=== PATIENT | female | born 1975 | race Caucasian/White ===

== ENCOUNTER 2024-05-21 23:49 | Emergency (ER) | payer OTHER, SELFPAY ==
[2024-05-21 23:55] VITALS: BP 135/96; PULSE 114; RESP 16; TEMP 36.6; O2SAT 94; BMI 41.1
[2024-05-22] VITALS (32 sets, daily range): BP systolic 106–135; BP diastolic 70–87; PULSE 82–109; RESP 12–21; O2SAT 93–100
--- NOTE | 2024-05-22 00:13 | ED_ITS ---
HPI - General Adult General Chief complaint: Extremity Pain/Injury, Lower Stated complaint: ankle injury from fall Time Seen by Provider: 05/21/24 23:58 History of Present Illness HPI narrative: fell and twisted ankle down 1 step approx 1 hour ago. felt a pop . L ankle deformed. states last PO 2 hours ago, patient reports she has been drinking alcohol. 48-year-old woman presenting to the emergency department accompanied by family after injuring her right ankle. She has been drinking alcohol. Do review last oral intake. At 12:45 a.m. is reporting last intake of solid food at least 6 hours before that and last intake of liquid about 845 p.m. this did include alcohol. No head injury was noted. There is no loss of consciousness. No other injuries were noted other than this left ankle. Related Data Home Medications ?Medication ?Instructions ?Recorded ?Confirmed bupropion HCl 150 mg 24 hr tablet, 150 mg PO DAILY 05/22/24 05/27/24 extended release chlorthalidone 25 mg tablet 25 mg PO DAILY 05/22/24 05/27/24 lisinopril 10 mg tablet 10 mg PO DAILY 05/22/24 05/27/24 sertraline 50 mg tablet 50 mg PO DAILY 05/22/24 05/27/24 Previous Rx's ?Medication ?Instructions ?Recorded oxycodone 5 mg tablet 5 mg PO Q6H PRN pain #12 tabs 05/22/24 Allergies Allergy/AdvReac Type Severity Reaction Status Date / Time Penicillins Allergy Verified 05/27/24 09:55 Sulfa (Sulfonamide Allergy Verified 05/27/24 09:55 Antibiotics) bees Allergy Uncoded 05/27/24 09:55 Review of Systems Status of ROS: Reports: 6 or more systems reviewed and unremarkable except as noted in History and below [facility] Social History Smoking Status: Former smoker What tobacco products do you use: cigarettes Smoking packs per day: 0.25 Smoking cigarettes per day: 5.0 Years smoked: 4 Smoking pack-years: 1.00 Smoking quit date/years: <= 15 years ago Do you use any of these nicotine containing products: None How often do you have a drink containing alcohol: 2-3 times a week How many standard drinks containing alcohol do you have on a typical day: 5 or 6 How often do you have six or more drinks on one occasion: Less than monthly AUDIT-C Alcohol total score: 6 Non-prescribed substance use: denies use service: No Exam Narrative: Exam Narrative: Flushed. Pleasant. Intoxicated. Breathing easily and easily conversant. The medial aspect of the right ankle with erythema/darkening and tenting of the skin. There is deviation generally of the ankle laterally. Heart is tachycardic in a regular rhythm. Const: Vital Signs, click to edit/add: Vital Signs - 24 hr 05/21/24 23:55 Temperature 98 F Pulse Rate [Pulse Oximeter] 114 H Respiratory Rate 16 Blood Pressure [Ri ght Upper Arm] 135/96 H Pulse Oximetry 94 Oxygen Delivery Me thod Room Air Documenting provider has reviewed patient's vital signs: yes Course Vital Signs Vital signs: Initial Vital Signs Temperature 98 F 05/21/24 23:55 Temperature Source Temporal Artery Scan 05/21/24 23:55 Pulse Rate 114 H 05/21/24 23:55 Respiratory Rate 16 05/21/24 23:55 Blood Pressure 135/96 H 05/21/24 23:55 Blood Pressure Mean 109 H 05/21/24 23:55 Blood Pressure Position Supine 05/21/24 23:55 Pulse Oximetry 94 05/21/24 23:55 Oxygen Delivery Method Room Air 05/21/24 23:55 Vital Signs Temperature 98 F 05/21/24 23:55 Pulse Rate 114 H 05/21/24 23:55 Respiratory Rate 16 05/21/24 23:55 Blood Pressure 135/96 H 05/21/24 23:55 Pulse Oximetry 94 05/21/24 23:55 Oxygen Delivery Method Room Air 05/21/24 23:55 Temperature 98 F 05/21/24 23:55 Pulse Rate 98 05/22/24 05:15 Respiratory Rate 16 05/22/24 05:15 Blood Pressure 120/87 05/22/24 05:01 Pulse Oximetry 97 05/22/24 05:15 Oxygen Delivery Method Room Air 05/21/24 23:55 Medications Administered Medications: Discontinued Medications Generic Name Dose Route Start Last Admin Trade Name Freq PRN Reason Stop Dose Admin Fentanyl 75 mcg 05/22/24 04:32 05/22/24 04:44 Fentanyl 100 Mcg/2 Ml Inj IVP 05/22/24 04:33 75 mcg ONCE ONE Administration Hydromorphone HCl 1 mg 05/21/24 23:58 05/22/24 00:15 Hydromorphone 0.5 Mg/0.5 Ml Inj IVP 05/21/24 23:59 1 mg ONCE ONE Administration Sodium Chloride 1,000 mls @ 1,000 mls/hr 05/21/24 23:58 05/22/24 01:47 0.9 % Sodium Chloride 1000 Ml IV 05/22/24 00:57 Infused .Q1H ONE Infusion Ketamine HCl 25 mg 05/22/24 01:54 05/22/24 02:18 Ketamine Hcl 100 Mg/Ml Inj IVP 05/22/24 01:55 25 mg ONCE ONE Administration Ketamine HCl 25 mg 05/22/24 02:43 05/22/24 02:22 Ketamine Hcl 100 Mg/Ml Inj IVP 05/22/24 02:44 25 mg ONCE ONE Administration Ketamine HCl 25 mg 05/22/24 04:32 05/22/24 04:48 Ketamine 50 Mg/0.5 Ml 100 Mg/Ml Ml IVP 05/22/24 04:33 25 mg ONCE ONE Administration Ketamine HCl 25 mg 05/22/24 05:29 05/22/24 04:52 Ketamine Hcl 100 Mg/Ml Inj IVP 05/22/24 05:30 25 mg ONCE ONE Administration Midazolam HCl 2 mg 05/22/24 01:54 05/22/24 02:13 Midazolam Hcl 1 Mg/Ml Inj IVP 05/22/24 01:55 2 mg ONCE ONE Administration Medical Decision Making MDM Narrative Medical decision making narrative: I would suspect dislocation partially probable fracture. Will need to reduce this sooner than later partly for pain but also to avoid further compromise of the skin. Receiving mg of Dilaudid and normal saline. On reassessment this did seem to help her pain. I do review the ankle images which show a tib fib fracture dislocation. A requested anesthesia to consult. Concerns of timing of ingestion remain. Did also discuss with orthopedics. Will try to minimize anesthetic and sedation. Also of concern is an alcohol level of 0.30 I discussed my concern of degree of functioning at 0.30 and she admits that this is likely a problem. Ultimately settled on using Versed and ketamine with anesthesia assistance. This did result in some pain control and mild sedation but not enough relaxation I think. Did with staff assistance manage to partially relocate I think the ankle. Certainly less pressure and effect on the skin. Julius Yepez splint applied with extra padding medially. Postreduction film though does show minimal improvement of joint alignment. Discussed with orthopedics on-call and anticipating no weight-bearing that this might be acceptable with close follow-up after the weekend. When went to attempt to mobilize with crutches, lost balance somewhat placing weight on to this left leg and felt a pop felt like it dislocated fully again. Pain has increased. With removal of splint can see pressure again on the medial ankle skin and that what reduction was accomplished prior has shifted. I think needs to be reduced again. Anesthesia available but note that would not provide any more medication beyond what was already done. This is not much sedation so should not be affecting airway and I will do this then with staff assistance. Given again another dose of ketamine and fentanyl. Still compromised effort at reduction by a lack of relaxation. Did accomplish more improved reduction and certainly relieved skin pressure/compromise. Postreduction film reviewed by me does show improvement from prior reduction efforts as well perhaps another 50% improved. Considering my earlier conversation with orthopedics, would anticipate close outpatient follow-up. See patient discharge plan for further discussion Lab Data Lab results reviewed: Yes I reviewed the patient's lab results Labs: Lab Results 05/22/24 Range/Units 01:30 Sodium 130 L (135-149) mmol/L Potassium 3.3 L (3.6-5.1) mmol/L Chloride 91 L (96-114) mmol/L Carbon Dioxide 22 (20-32) mmol/L Anion Gap 17 H (7-15) mEq/L BUN 12 (5-24) mg/dL Creatinine 0.9 (0.5-1.5) mg/dL Estimated Creat Clear 63.92 Estimated GFR 79 ml/min Glucose 130 H (60-115) mg/dL Calcium 9.0 (8.4-10.6) mg/dL Ethyl Alcohol 0.30 H (0.01-0.03) % Discharge Plan Discharge Clinical Impression: Right fibular fracture, Alcohol intoxication Ankle dislocation Qualifiers: Encounter type: subsequent encounter Laterality: right Qualified Code(s): S93.04XD - Dislocation of right ankle joint, subsequent encounter Ankle fracture Qualifiers: Encounter type: subsequent encounter Fracture type: closed Laterality: right Patient Disposition: Home w/ Parent or Adult Condition: Improved Additional Instructions: I did speak with Ortho [facility]. They are happy to see you in follow-up in clinic. Call [phone] Thursday. If they do not hear from you by noon on Thursday I believe, they will reach out for you. Hopefully you 2 can connect. I understand that you may need to follow up elsewhere. Need to be seen in that case early this week. Typically I would anticipate this ORIF of the ankle (your surgery) would be done in about a week; once the swelling has gone down. Would not bear weight on this foot; use the crutches. Elevate for comfort. Ibuprofen. Acetaminophen. Naproxen. Prescriptions: No Action chlorthalidone 25 mg tablet 25 mg PO DAILY lisinopril 10 mg tablet 10 mg PO DAILY sertraline 50 mg tablet 50 mg PO DAILY bupropion HCl 150 mg tablet extended release 24 hr 150 mg PO DAILY oxycodone 5 mg tablet 5 mg PO Q6H PRN (Reason: pain) Qty: 12 0RF Follow Up/Referrals: Provider,Not a Local [Primary Care Provider] - Stand Alone Forms: [employer] Info Instructions
[2024-05-22] MEDS: 0.9 % SODIUM CHLORIDE 1000 ml 1,000 ML IV (00:15)
[2024-05-22] MEDS: HYDROmorphone 0.5 mg/0.5 ml inj 1 MG IVP (00:15)
--- OUTSIDE RECORDS SUMMARY | 2024-05-22 00:56 | XMS_ITS | Encounter Summary ---
Author Organization [facility] Address [address] [place] [id number] Care Team Providers Care Varsity Baseball Coach Name Role Phone Maricarmen Simms DO Primary Care Provider [phone] Reason for Visit * Reason Comments Medication Questions Entered automatical ly based on patient selection in Modify. Encounter Details Date Type Department Care Team ([facility] Contact Info) Description 05/05/2024 10:00 AM CDT E-Visit [address] [address] Maricarmen Simms DO [address] [place] [address] [id number] Chief Comp: Medication Questions Social History Tobacco Use Types Packs/Day Years Used Date Smoking Tobacco: Former Cigarettes Q uit: 01/05/2014 Passive Smoke Exposure: Past Smokeless Tobacco: Never Comments:social smoker Alcohol Use Standard Drinks/Week Comments Not Currently 0.8 (1 standard drink = 0.6 oz p ure alcohol) Social drinker,wine PHQ-2 Answer Date Recorded PHQ-2 Score 0 06/04/2023 Sex and Gender Information Value Date Recorded Sex Assigned at Not on file Gender Identity Not on file Sexual Orientation Not on file documented as of this encounter Plan of Treatment Upcoming Encounters Date Type Department Care Team ([facility] Contact Info) Description 05/26/2024 8:00 AM CDT Telemedicine [address] [address] Maricarmen Simms DO [address] [place] [address] 09/26/2024 3:00 PM PROFESSOR OF LANGUAGES Telemedicine [facility] [address] [facility] [address] [place], [place] [id number] Sheela Vazquez PA-C [address] [place], [place] [phone] documented as of this encounter Visit Diagnoses Not on filedocumented in this encounter Care Teams Varsity Baseball Coach Relationship Specialty Start Date End Date Maricarmen Simms DO [address] [place] [address] PCP - General Family Practice 06/04/23 documented as of this encounter
--- OUTSIDE RECORDS SUMMARY | 2024-05-22 00:56 | XMS_ITS | Encounter Summary ---
Author Organization [facility] Address [address] [place] [address] Care Team Providers Care Automobile Locator Name Role Phone Maricarmen Simms DO Primary Care Provider [phone] Encounter Details Date Type Department Care Team (Late Contact Info) Description 05/05/2024 2:50 PM CDT Lab Visit [facility] [address] [place] [address] Health examination in population survey (Primary Dx); Pre-diabetes; Encounter for long-term (current) use of medications; Essential hypertension (HRC); Screening cholesterol level; Abnormal uterine bleeding (AUB) Social History Tobacco Use Types Packs/Day Years [...] Upcoming Encounters Date Type Department Care Team (Late Contact Info) Description 05/26/2024 8:00 AM CDT Telemedicine [facility] [address] [place] [address] Maricarmen Simms DO [address] [place] [address] 09/26/2024 3:00 PM DIRECTOR HEALTH Telemedicine [facility] [address] [facility] [address] [place], [place] [phone] Sheela Vazquez PA-C [address] [place] [address] documented as of this encounter Procedures Procedure Name Priority Date/Time Associated Diagnosis Comments CONTAINER TEST Routine 05/05/2024 2:04 PM CDT Health examination in population survey FIT COLLECTION KIT PREP Routine 05/05/2024 2:04 PM CDT Health examination in population survey LDL CHOLESTEROL, DIRECT MEASURED Routine 05/05/2024 2:04 PM CDT Screening cholesterol level CREATININE / GFR Routine 05/05/2024 2:04 PM CDT Encounter for long-term (current) use of medications Essential hypertension (HRC) TSH, SENSITIVE Routine 05/05/2024 2:04 PM CDT Abnormal uterine bleeding (AUB) ELECTROLYTE PANEL Routine 05/05/2024 2:0 4 PM CDT Essential hypertension (HRC) CHOLESTEROL, TOTAL AND HDL Routine 05/05/2024 2:04 PM CDT Screening cholesterol level HGB A1C Routine 05/05/2024 2:04 PM CDT Pre-diabetes documented in this encounter Results * FIT Collection Kit Prep (05/05/2024 2:04 PM CDT) [facility] FIT Kit Prep Fit Kit Given 05/05/2024 4:00 PM CDT [facility] Stool Non-blood Collection / Unknown 05/05/2024 2:04 PM CDT 05/05/2024 2:04 PM CDT Maricarmen Simms DO LAB_1 Performing Organization Address City/[facility]/ZIP Co de Phone Number [facility] [address] [place] [address], [place] * TSH (05/05/2024 2:04 PM CDT) TSH, Sensitive 2.26 0.30 - 4.50 uIU/mL 05/05/2024 6:53 PM CDT [facility] Blood Venipuncture / Unknown 05/05/2024 2:04 PM CDT 05/05/2024 2:04 PM CDT Maricarmen Simms DO LAB_1 Performing Organization Address [facility] Co de Phone Number [facility] [address] * (ABNORMAL) Cholesterol, Total and HDL (05/05/2024 2:04 PM CDT) Cholesterol 299(H) 0 - 199 mg/dL 05/05/2024 6:37 PM CDT [facility] HDL Cholesterol 58 >=40 mg/dL 6:37 PM CDT [facility] Non HDL Chol, Calculated 241(H) <=159 mg/dL 05/05/2024 6:37 PM CDT [facility] Blood Venipuncture / Unknown 05/05/2024 2:04 PM CDT 05/05/2024 2:04 PM CDT Maricarmen Simms DO LAB_1 Performing Organization Address [facility] Co de Phone Number [facility] [address] * (ABNORMAL) LDL Cholesterol, Direct Measured (05/05/2024 2:04 PM CDT) LDL, Direct 237(H) <=130 mg/dL 05/05/2024 6:52 PM CDT [facility] Blood Venipuncture / Unknown 05/05/2024 2:04 PM CDT 05/05/2024 2:04 PM CDT Maricarmen Simms DO LAB_1 Performing Organization Address [facility] de Phone Number [facility] [address] [place] [address] * (ABNORMAL) Electrolyte Panel (05/05/2024 2:04 PM CDT) Sodium 133(L) 136 - 145 mmol/L 05/05/2024 6:37 PM CDT [facility] Potassium 3.7 3.5 - 5.1 mmol/L 05/05/2024 6:37 PM CDT [facility] Chloride 99 98 - 109 mmol/L 05/05/2024 6:37 PM CDT [facility] CO2 20 20 - 29 mmol/L 05/05/2024 6:37 PM CDT [facility] Anion Gap 14 6 - 16 mmol/L 05/05/2024 6:37 PM CDT [facility] Blood Venipuncture / Unknown 05/05/2024 2:04 PM CDT 05/05/2024 2:04 PM CDT Maricarmen Simms DO LAB_1 Performing Organization Address [facility] Phone Number [facility] [address] [place] [address] * (ABNORMAL) Creatinine / GFR (05/05/2024 2:04 PM CDT) Creatinine 1.03(H) 0.55 - 1.02 mg/dL 05/05/2024 6:37 PM CDT [facility] GFR, Estimated >60 >60 mL/min/1.7 3m2 05/05/2024 6:37 PM CDT [facility] Blood Venipuncture / Unknown 05/05/2024 2:04 PM CDT 05/05/2024 2:04 PM CDT Maricarmencarol ann Simms DO LAB_1 Performing Organization Address City/[facility] Co de Phone Number [facility] [address] [place] [address], [facility] * (ABNORMAL) Hgb A1C (05/05/2024 2:04 PM CDT) Hemoglobin A1C 5.8(H) <=5.6 % 05/06/2024 9:[address] [facility] Estimated Average Glucose (Calc) 120 < 117 mg/dL 05/06/2024 9:[address] [facility] Comment:Estimated average gl ucose (eAG) converts A1c into glucose units (mg/dL) and estimates average glucose over the past approximately 3 months. The eAG reference interval (<117 mg/dL) corresponds to an A1c of <5.7%. Blood Venipuncture / Unknown 05/05/2024 2:04 PM CDT 05/05/2024 2:[address] [facility] - 05/06/2024 9:56 AM CDT For patients not previously diagnosed with diabetes: 5.7-6.4%: Increased risk for diabetes 6.5% and greater: Diagnostic for diabetes For patients diagnosed with diabetes: <8.0%: Goal of therapy for ages 18-75 Clinicians may recommend a higher or lower goal for specific individuals. Maricarmen Simms DO LAB_1 Performing Organization Address City/State/[facility] Co de Phone Number [facility] [address] [place] [address], [facility] documented in this encounter Visit Diagnoses Diagnosis Health examination in population survey- Primary Pre-diabetes Other abnormal glucose Encounter for long-term (current) use of medications Encounter for long-term (current) use of other medications Essential hypertension (HRC) Unspecified essential hypertension Screening cholesterol level Screening for lipoid disorders Abnormal uterine bleeding (AUB) documented in this encounter Care Teams Automobile Locator Relationship Specialty Start Date End Date Maricarmen Simms [place] [address] [place] [address] PCP - General Family Practice 06/04/23 documented as of this encounter
--- OUTSIDE RECORDS SUMMARY | 2024-05-22 00:56 | XMS_ITS | Clinical Summary ---
Author Organization [facility] hospital Address [address] [place] [address] Care Team Providers Care Milieu Technician Name Role Phone MendezMaricarmen DO Primary Care Provider + [phone] Source Comments You are receiving this document as you are listed as the primary care provider,follow-up provider, or the patient has been referred to you for consultation.This is in compliance with the Medicare and[facility] Cent[facility]aid EHR Incentive Program,which states Providers who transition their patient to another setting of careor provider of care or refers their patient to another provider of care shouldprovide summary care record for each transition of care or referral. [facility] Allergies Active Allergy Reactions Criticality Noted Date Comments Bee Venom Other, see comments 05/05/2024 Penicillins Rash 09/24/2010 Sulfa Antibiotics Rash 09/24/2010 Medications Medication Sig Dispensed Refills Start Date End Date Status naltrexone (REVIA) 50 MG tabletIndication s:Morbid obesity with BMI of 40.0-44.9, adult (HRC) Take 1 Tablet (50 mg) by mouth daily. 90 Tablet 1 09/22/19 24 Active buPROPion (WELLBUTRIN XL) 150 MG 24 hour release tabletIndication s:Morbid obesity with BMI of 40.0-44.9, adult (HRC) Take 1 Tablet (150 mg) by mouth daily. 90 Tablet 1 04/22/20 24 Active chlorthalidone (HYGROTON) 25 MG tabletIndication s:Essential hypertension (HRC) Take 1 Tablet (25 mg) by mouth daily. 90 Tablet 3 05/05/20 24 Active sertraline (ZOLOFT) 50 MG tabletIndication s:Anxiety (HRC) Take 1 Tablet (50 mg) by mouth daily. 90 Tablet 3 05/05/20 24 Active mometasone (ASMANEX HFA) 100 MCG/ACT inhalerIndicatio ns:Mild persistent asthma without complication (HRC) Inhale 2 Puffs two times a day. Rinse mouth/gargle after use. 39 g 3 05/05/20 24 025 Active lisinopril (ZESTRIL) 20 MG tabletIndication s:Essential hypertension (HRC) Take 1 Tablet (20 mg) by mouth daily. 90 Tablet 3 05/05/20 24 025 Active fexofenadine (JAYME) 180 MG tabletIndication s:Seasonal allergies Take 1 Tablet (180 mg) by mouth daily. 90 Tablet 3 05/05/20 24 Active fluticasone propionate (FLONASE) 50 MCG/ACT nasal solutionIndicati ons:Seasonal allergies Place 2 Sprays into both nostrils daily. 16 mL 3 05/05/20 24 Active ALBUterol sulfate HFA 108 (90 Base) MCG/ACT inhalerIndicatio ns:Mild persistent asthma without complication (HRC) Inhale 1-2 Puffs every 4 hours as needed for Wheezing. 18 g 2 05/05/20 24 Active EPINEPHrine (EPIPEN) 0.3 MG/0.3ML injectionIndicat ions:Bee sting allergy Inject 0.3 mL (0.3 mg) intramuscularly as needed. May repeat. 2 Each 11 05/05/20 24 Active fluticasone propionate (FLONASE) 50 MCG/ACT nasal solution 2 SPRAYS INTO BOTH NOSTRILS DAILY. DECREASE TO 1 SPRAY PER NOSTRIL DAILY IF SYMPTOMS CONTROLLED 16 mL 1 05/22/20 22 024 Discontinued(*M ed change OR same med OR reorder, new dose/directions ) sertraline (ZOLOFT) 50 MG tabletIndication s:Anxiety (HRC) Take 1/2 tablet daily by mouth for 1 week then increase to 1 tablet daily 30 Tablet 1 06/04/20 23 024 Discontinued(*M ed change OR same med OR reorder, new dose/directions ) lisinopril (ZESTRIL) 20 MG tabletIndication s:Essential hypertension (HRC) Take 1 Tablet (20 mg) by mouth daily. 90 Tablet 3 07/29/20 23 024 Discontinued(*M ed change OR same med OR reorder, new dose/directions ) sertraline (ZOLOFT) 50 MG tabletIndication s:Anxiety (HRC) Take 1 Tablet (50 mg) by mouth daily. 90 Tablet 3 07/30/20 23 024 Discontinued predniSONE (DELTASONE) 20 MG tabletIndication s:Mild persistent asthma with acute exacerbation (HRC) 2 tabs po q morning x 5 days 10 Tablet 10/09/19 24 024 Discontinued chlorthalidone (HYGROTON) 25 MG tabletIndication s:Essential hypertension (HRC) take 1 tablet by mouth every day 90 Tablet 02/02/20 24 024 Discontinued mometasone (ASMANEX HFA) 100 MCG/ACT inhalerIndicatio ns:SOB (shortness of breath) Inhale 2 Puffs two times a day. Rinse mouth/gargle after use. 39 g 03/01/20 24 024 Discontinued(*M ed change OR same med OR reorder, new dose/directions ) fexofenadine (JAYME) 180 MG tabletIndication s:Seasonal allergies take 1 tablet by mouth every day 90 Tablet 03/20/20 24 024 Discontinued(*M ed change OR same med OR reorder, new dose/directions ) chlorthalidone (HYGROTON) 25 MG tabletIndication s:Essential hypertension (HRC) take 1 tablet by mouth every day 90 Tablet 05/04/20 24 024 Discontinued(*M ed change OR same med OR reorder, new dose/directions ) Active Problems Problem Noted Date Diagnosed Date Mixed hyperlipidemia 05/11/2024 Seasonal allergies 05/05/2024 Mild persistent asthma without complication 04/17 Bee sting allergy 05/05/2024 SOB (shortness of breath) 06/04/2023 Fatty liver 02/04/2023 Elevated serum creatinine 12/08/2017 Essential hypertension 11/14/2016 Anxiety 04/28/2012 Resolved Problems Problem Noted Date Diagnosed Date Resolved Date Moderate persistent asthma w ith acute exacerbation 11/14/2016 03/12/2017 Localized superficial swelling, mass, or lump 09/08/05 1209/01/2017 Overview (04/28/2012): R lateral thigh Encounters Date Type Department Care Team Description 05/05/2024 2:50 PM CDT Lab Visit [address] [place] [address] Health examination in population survey (Primary Dx); Pre-diabetes; Encounter for long-term (current) use of medications; Essential hypertension (HRC); Screening cholesterol level; Abnormal uterine bleeding (AUB) 05/05/2024 1:30 PM CDT Office Visit [facility] [address] [place] [address] Maricarmen Simms DO Essential hypertension (HRC) (Primary Dx); Screening for colon cancer; Encounter for screening mammogram for malignant neoplasm of breast; Pre-diabetes; Encounter for long-term (current) use of medications; Morbid obesity with BMI of 40.0-44.9, adult (HRC); Anxiety (HRC); Seasonal allergies; Screening cholesterol level; Mild persistent asthma without complication (HRC); Abnormal uterine bleeding (AUB); Bee sting allergy 05/05/2024 10:00 AM CDT E-Visit [facility] [address] [place] [address] Maricarmen Simms DO Chief Comp: Medication Questions 05/01/2024 Refill [facility] [address] [place] [address] Maricarmen Simms DO Refill (chlorthalidone (HYGROTON) 25 MG tablet [Pharmacy Med Name: CHLORTHALIDONE 25 MG TABLET]) 04/22/2024 1:45 PM CDT E-Visit [facility] [place] [address] [place] [address] Sheela Vazquez PA-C Chief Comp: Medication Questions 04/22/2024 Refill [facility] [place] [address] [place] [address] Sheela Vazquez PA-C Refill (bupropion) 04/18/2024 Refill [facility] [place] [address] [facility] [address] [place] [address] Sheela Vazquez PA-C Refill (Wellbutrin ) 03/20/2024 Refill [facility] [address] [place] [address] Maricarmen Simms DO Refill (fexofenadine (JAYME) 180 MG tablet [Pharmacy Med Name: FEXOFENADINE HCL 180 MG TABLET]) 03/01/2024 12:40 PM CDT E-Visit [facility] [address] [place] [address] Maricarmen Simms DO Dx: SOB (shortness of breath) from Last 3 Months Immunizations Name Administration Dates Next Due Flu Vac (3+ yrs) 09/24/2010 HepA Adult (19+ yrs) 06/05/2020 HepA-HepB ([place], 18+ yrs) 04/01/2016,01/12/20 13 Influenza IIV4 (Quadrivalent) 0.5mL (82597) 05/17,05/21/2021,06/05/2020 Moderna Monovalent 12+ 06/14/2021,10/12/2020, Pfizer Bivalent 12+ 06/03/2022 Tdap 05/21/2021,09/24/2010 Family History Medical History Relation Name Comments Hyperlipidemia Father Hypertension Father Tachycardia Father Cancer, Melanoma Mother Hyperlipidemia Mother Hypertension Mother High Cholesterol Brother Hyperlipidemia Brother Hypertension Brother Myocardial Infarction Maternal Aunt Coronary Artery Disease Maternal Grandfather Hypertension Maternal Grandmother Asthma Paternal Grandfather Myocardial Infarction Paternal Grandfather Cancer, Lung Paternal Grandmother ADHD Negative Family History Alcohol/Drug Abuse Negative Family History Amblyopia/Strabismus Negative Family History Anesthesia Reaction Negative Family History Anxiety Negative Family History Bipolar Disorder Negative Family History Bleeding Disorder Negative Family History Blindness Negative Family History COPD Negative Family History Cancer, Bone Negative Family History Cancer, Colon Negative Family History Cancer, Other Negative Family History Cancer, Prostate Negative Family History Cataract Negative Family History Celiac Disease Negative Family History Cerebrovascular Disease Negative Family History Cystic Fibrosis Negative Family History Deafness Negative Family History Dementia Negative Family History Depression Negative Family History Diabetes, Type II Negative Family History Domestic Violence Negative Family History Eczema Negative Family History Emphysema Negative Family History Enuresis Negative Family History Genetic Disorder Negative Family History Glaucoma Negative Family History Inflammatory Bowel Disease Negative Family History Kidney Disorder Negative Family History Liver Disease Negative Family History Macular Degeneration Negative Family History Migraines Negative Family History Neural Tube Defect Negative Family History Obesity Negative Family History Osteoporosis Negative Family History Other Negative Family History Retinal Detachment Negative Family History Schizophrenia Negative Family History Scoliosis Negative Family History Seizure Disorder Negative Family History Sickle Cell Anemia Negative Family History Suicide Negative Family History Thromboembolic Disease Negative Family History Thyroid Disorder Negative Family History Tuberculosis Negative Family History Vesicoureteral Reflux Negative Family History Relation Name Status Comments Father Alive Mother Alive Brother Alive Maternal Aunt Maternal Grandfather Maternal Grandmother Paternal Grandfather Paternal Grandmother Sister 1 Alive Sister 2 Alive Social History Tobacco Use Types Packs/Day Years Used Date Smoking Tobacco: Former Cigarettes Q uit: 01/05/2014 Passive Smoke Exposure: Past Smokeless Tobacco: Never Tobacco Cessation:Counseling Given: Not Answered Comments:social smoker Alcohol Use Standard Drinks/Week Comments Not Currently 0.8 (1 standard drink = 0.6 oz p ure alcohol) Social drinker,wine PHQ-2 Answer Date Recorded PHQ-2 Score 0 06/04/2023 Sex and Gender Information Value Date Recorded Sex Assigned at Not on file Gender Identity Not on file Sexual Orientation Not on file Last Filed Vital Signs Vital Sign Reading Time Taken Comments Blood Pressure 126/88 05/05/2024 1:24 PM CDT Pulse 99 05/05/2024 1:24 PM CDT Temperature 36.3 ??C (97.3 ??F) 10/09/2023 12:[address] Respiratory Rate 28 10/09/2023 12:35 PM RN TRAVEL Oxygen Saturation 97% 10/09/2023 12:35 PM RN TRAVEL Inhaled Oxygen Concentration - - Weight 103.9 kg (229 lb) 05/05/2024 1:24 PM CDT Height 160 cm (5' 3) 05/05/2024 1:24 PM CDT Body Mass Index 40.57 05/05/2024 1:24 PM CDT Plan of Treatment Upcoming Encounters Date Type Department Care Team (Late st Contact Info) Description 05/26/2024 8:00 AM CDT Telemedicine [facility] [address] [facility] [address] [place], [place] [address] Maricarmen Simms DO [address] [facility] [place] [address] 09/26/2024 3:00 PM RN TRAVEL Telemedicine [facility] [address] [facility] [address] [place], [place] [id number] Sheela Vazquez PA-C [address] [place] [address] Health Maintenance Due Date Last Done Comments MTM Targeted 1976 Pneumococcal (1 - PCV) 1982 HepB (3) 09/01/2016 04/01/2016, 01/11/2013 Asthma ACT 06/08/2019 06/08/2018, 04/17, 03/12/2017 FIT Colon Cancer Screening 2020 Mammogram 04/16/2022 04/16/2021 Adult Preventive Visit 06/03/2023 06/03/2022, 2012 COVID-19 Vaccine ( season) 2024 06/03/2022, 06/14/2021, 10/12/2020, Additional history exists Influenza (#1) 2024 06/03/2022, 12/2020, 06/05/2020, Additional history exists Prediabetes: HGBA1C 05/05/2025 05/05/2024, 06/03/2022, 04/16/2021, Additional history exists Cervical Cancer Screening 03/28/20262020, 01/03/2013, 01/03/2013 Zoster/Shingles (1 of 2) 2026 Cholesterol 05/05/2029 05/05/2024, 05/17, 04/16/2021, Additional history exists DTaP/Tdap/Td (3 - Tdap) 05/21/2031 05/21/2021, 09/24 HIV Screening (Preventive Services) Completed 06/05/2020 HepA Completed 06/05/2020, 03/17, 01/11/2013 Hep C Screening (Preventive Services) Completed 06/03/2022 Hib Aged Out No longer eligi ble based on patient's age to complete this topic IPV (Polio) Aged Out No longer eligi ble based on patient's age to complete this topic Infant RSV Aged Out No longer eligi ble based on patient's age to complete this topic MCV4 Aged Out No longer eligi ble based on patient's age to complete this topic Procedures Procedure Name Priority Date/Time Associated Diagnosis Comments FIT COLLECTION KIT PREP Routine 05/05/2024 2:04 PM CDT Health examination in population survey CONTAINER TEST Routine 05/05/2024 2:04 PM CDT Health examination in population survey TSH, SENSITIVE Routine 05/05/2024 2:04 PM CDT Abnormal uterine bleeding (AUB) CHOLESTEROL, TOTAL AND HDL Routine 05/05/2024 2:04 PM CDT Screening cholesterol level LDL CHOLESTEROL, DIRECT MEASURED Routine 05/05/2024 2:04 PM CDT Screening cholesterol level ELECTROLYTE PANEL Routine 05/05/2024 2:0 4 PM CDT Essential hypertension (HRC) CREATININE / GFR Routine 05/05/2024 2:04 PM CDT Encounter for long-term (current) use of medications Essential hypertension (HRC) HGB A1C Routine 05/05/2024 2:04 PM CDT Pre-diabetes HEPATITIS C ANTIBODY, WITH REFLEX Routine 06/03/2022 1:24 PM CDT Need for hepatitis C screening test MM MAMMOGRAM SCREENING BILAT W CAD Routine 04/16/2021 3:25 PM CDT PAP TEST Routine 03/28/2021 3:35 PM CDT Routine health maintenance Screening for malignant neoplasm of cervix HIV 1/2 AG/AB 4TH GEN Routine 06/05/2020 2:03 PM CDT Screening for HIV (human immunodeficiency virus) from Last 3 Months or Most Recently Relevant to Health Maintenance Results * FIT Collection Kit Prep (05/05/2024 2:04 PM CDT) FIT Kit Prep Fit Kit Given 05/05/2024 4:00 PM CDT [facility] Stool Non-blood Collection / Unknown 05/05/2024 2:04 PM CDT 05/05/2024 2:04 PM CDT Maricarmen Simms DO LAB_1 Performing Organization Address City/[facility]/ZIP Co de Phone Number [facility] [address] [place] [address], [place] * (ABNORMAL) LDL Cholesterol, Direct Measured (05/05/2024 2:04 PM CDT) Pathologist [facility] LDL, Direct 237(H) <=130 mg/dL 05/05/2024 6:52 PM CDT [facility] Blood Venipuncture / Unknown 05/05/2024 2:04 PM CDT 05/05/2024 2:04 PM CDT Maricarmen Simms DO LAB_1 [facility] [address] [place], [place] [id number] [place] [address] * (ABNORMAL) Creatinine / GFR (05/05/2024 2:04 PM CDT) Creatinine 1.03(H) 0.55 - 1.02 mg/dL 05/05/2024 6:37 PM CDT [facility] GFR, Estimated >60 >60 mL/min/1.7 3m2 05/05/2024 6:37 PM CDT [facility] Blood Venipuncture / Unknown 05/05/2024 2:04 PM CDT 05/05/2024 2:04 PM CDT Maricarmen Simms DO LAB_1 Performing Organization Address [facility] Co de Phone Number [facility] [address] * TSH (05/05/2024 2:04 PM CDT) TSH, Sensitive 2.26 0.30 - 4.50 uIU/mL 05/05/2024 6:53 PM CDT [facility] Blood Venipuncture / Unknown 05/05/2024 2:04 PM CDT 05/05/2024 2:04 PM CDT Maricarmen Simms DO LAB_1 Performing Organization Address [facility] Phone Number [facility] [address] * (ABNORMAL) Electrolyte Panel (05/05/2024 2:04 PM CDT) Sodium 133(L) 136 - 145 mmol/L 05/05/2024 6:37 PM CDT [facility] Potassium 3.7 3.5 - 5.1 mmol/L 05/05/2024 6:37 PM CDT [facility] Chloride 99 98 - 109 mmol/L 05/05/2024 6:37 PM CDT [facility] CO2 20 20 - 29 mmol/L 05/05/2024 6:37 PM CDT [facility] Anion Gap 14 6 - 16 mmol/L 05/05/2024 6:37 PM CDT [facility] Blood Venipuncture / Unknown 05/05/2024 2:04 PM CDT 05/05/2024 2:04 PM CDT Maricarmen Simms DO LAB_1 Performing Organization Address [facility] Co la Phone Number [facility] [address] [place] [address] * (ABNORMAL) Cholesterol, Total and HDL (05/05/2024 2:04 PM CDT) Cholesterol 299(H) 0 - 199 mg/dL 05/05/2024 6:37 PM CDT [facility] HDL Cholesterol 58 >=40 mg/dL 6:37 PM CDT [facility] Non HDL Chol, Calculated 241(H) <=159 mg/dL 05/05/2024 6:37 PM CDT [facility] Blood Venipuncture / Unknown 05/05/2024 2:04 PM CDT 05/05/2024 2:04 PM CDT Maricarmen Simms DO LAB_1 [facility] [address] * (ABNORMAL) Hgb A1C (05/05/2024 2:04 PM CDT) Hemoglobin A1C 5.8(H) <=5.6 % 05/06/2024 9:56 AM CDT [facility] Estimated Average Glucose (Calc) 120 < 117 mg/dL 05/06/2024 9:56 AM CDT [facility] Comment:Estimated average gl ucose (eAG) converts A1c into glucose units (mg/dL) and estimates average glucose over the past approximately 3 months. The eAG reference interval (<117 mg/dL) corresponds to an A1c of <5.7%. Blood Venipuncture / Unknown 05/05/2024 2:04 PM CDT 05/05/2024 2:04 PM CDT Narrative [facility] - 05/06/2024 9:56 AM CDT For patients not previously diagnosed with diabetes: 5.7-6.4%: Increased risk for diabetes 6.5% and greater: Diagnostic for diabetes For patients diagnosed with diabetes: <8.0%: Goal of therapy for ages 18-75 Clinicians may recommend a higher or lower goal for specific individuals. Maricarmen Simms DO LAB_1 [facility] [address] [place] [address] * Hepatitis C Antibody, with Reflex (06/03/2022 1:24 PM CDT) Hepatitis C Antibody Negative (Non Reactive) Negative (Non Reactive) 06/03/2022 6:38 PM CDT [facility] Comment:Antibodies to HCV no t detected. Does not exclude the possiblity of exposure to HCV. Blood Venipuncture / Unknown 06/03/2022 1:24 PM CDT 06/03/2022 1:24 PM CDT Lacey Payne MD LAB_1 Performing Organization Address [facility] Co de Phone Number [facility] [address] [place] [address] * (ABNORMAL) MM Mammogram Screening Bilat W CAD (04/16/2021 3:25 PM CDT) Anatomical Region Laterality Modality Breast Bilateral Mammography Impressions 04/16/2021 4:04 PM CDT : ACR BI-RADS Category 0: Need Additional Imaging Evaluation RECOMMENDATION: Magnification Views The results and recommendations of this examination will be communicated to the patient and the imaging center will attempt to schedule any recommended follow up with the patient. As a result of the Century Cures Act, all medical imaging exams are released immediately to [facility]. ??You may be viewing this report before our scheduling staff and your referring provider. ??We will attempt to contact you by phone within one business day of this report to schedule any recommended follow-up exams. ??If you have questions, please contact your health care provider. Narrative 04/16/2021 4:04 PM CDT MM MAMMOGRAM SCREENING BILAT W CAD performed on 04/16/21 No comparisons were made when reading this study. ??Baseline. FINDINGS: Bilateral screening mammogram was performed with the assistance of Computer-Aided Detection . The breasts have scattered areas of fibroglandular density. There are indeterminate calcifications in the right breast at the 11 o'clock position at anterior depth. The remainder of the breast tissue is unremarkable. Lacey Payne MD [facility] * PAP Test (03/28/2021 3:35 PM CDT) Case Report Pap ? Case: [id number] ? Authorizing Provider: ??Omar, Leticia Flores, MICRO COMPUTER DATA PROCESSOR, CNM ??Collected: ? 03/28/2021 1535 ? Ordering Location: ? [facility] ?Received: ?03/28/2021 1633 ? Gynecology ? First Screen: ?Benji, Tanisha R, CT ? (ASCP) ? Rescreen: ?Grace Carr CT (ASCP) ? Specimen: ?Pap Test, Routine, Cervix/Endocervix ? 04/10/2021 1:[address] [facility] Pap Specimen Adequacy Satisfactory for evaluation, endocervical/newman sformation zone component present. 04/10/2021 1:[address] [facility] Pap Interpretation Negative for intraepithelial lesion or malignancy (NILM). 04/10/2021 1:[address] [facility] Pap Disclaimer The Pap test is a screening test designed to aid in the detection of cervical cancer and its precursor lesions. It is not a diagnostic procedure and should not be used as the sole means of detecting cervical cancer. Both false-positive and false-negative results may occur. 04/10/2021 1:[address] [facility] Gross Description The specimen is received in SurePath fixative and properly labeled. 1 Pap-stained SurePath slide is prepared. 04/10/2021 1:[address] [facility] Embedded Images 1:[address] [facility] Other Specimen Type ENTIRE ENDOCERVIX / Unknown 03/28/2021 3:35 PM CDT 03/28/2021 4:33 PM CDT Comment:LMP: Patient's last menstrual period was 03/03/2021. Leticia Nelson APRN, CNM LAB PATHOLOGY Performing Organization Address City/State/[facility] Co de Phone Number [address] [address], [facility] [phone] * HIV 1/2 Ag/Ab 4th Generation (06/05/2020 2:03 PM CDT) HIV 1/2 Antigen/Anti body (4th generation) Negative (Non Reactive) Negative (Non Reactive) 06/06/2020 12:09 PM CDT [facility] Comment:HIV-1 p24 Antigen an d HIV-1/HIV-2 Antibody not detected Blood Venipuncture / Unknown 06/05/2020 2:03 PM CDT 06/05/2020 2:03 PM CDT Lacey Payne MD LAB_1 [facility] [address] [phone] from Last 3 Months or Most Recently Relevant to Health Maintenance Care Teams Milieu Technician Relationship Specialty Start Date End Date Maricarmen Simms DO [address] [place], [place] [address] PCP - General Family Practice 06/04/23
--- OUTSIDE RECORDS SUMMARY | 2024-05-22 00:57 | XMS_ITS | Encounter Summary ---
Author Organization [facility]ly [facility] Address [address] [place] [address] Care Team Providers Care Production Officer Name Role Phone Yvonne Harris DO Primary Care Provider [phone] Reason for Visit * Reason Comments Refill fexofenadine (ALLEGR A) 180 MG tablet [Pharmacy Med Name: FEXOFENADINE HCL 180 MG TABLET] Encounter Details Date Type Department Care Team ([facility] st Contact Info) Description 03/20/[address] [address] Yvonne Harris DO [address] [place], [place] [phone] Refill (fexofenadine (JAYME) 180 MG tablet [Pharmacy Med Name: FEXOFENADINE HCL 180 MG TABLET]) Social History Tobacco Use Types Packs/Day Years Used Date Smoking Tobacco: Former Cigarettes Q uit: 01/05/2014 Smokeless Tobacco: Never Comments:social smoker Alcohol Use Standard Drinks/Week Comments Not Currently 0.8 (1 standard drink = 0.6 oz p ure alcohol) Social drinker,wine PHQ-2 Answer Date Recorded PHQ-2 Score 0 06/04/2023 Sex and Gender Information Value Date Recorded Sex Assigned at Not on file Gender Identity Not on file Sexual Orientation Not on file documented as of this encounter Nursing Notes * Kevan Hammonds RN - 03/20/2024 8:12 PM CDT Further Assistance Needed on Refill from Recruiting Consultant Patient is due for Qualifying Visit Medication has been refilled for a 90-day supply. Patient is due for an Office/Video Visit in the next 90 days. Call Patient and document using .BREANNA. After attempting to schedule patient: Close encounter. Refill has already been processed per standing order. Requested Prescriptions Pending Prescriptions Disp Refills fexofenadine (JAYME) 180 MG tablet [Pharmacy Med Name: FEXOFENADINE HCL 180 MG TABLET] 90 Tablet 0 Sig: take 1 tablet by mouth every day * Marvin Maradiaga Xrwcomm - 03/20/2024 1:11 AM CDT fexofenadine (JAYME) 180 MG tablet [Pharmacy Med Name: FEXOFENADINE HCL 180 MG TABLET] Medication started: 06/03/2022 Last ordered by YVONNE HARRIS: 12/12/2023 (99 days ago) QTY: 90, Refills: 1, Sig: take 1 tabletby mouth every day (unchanged) -> Refill x 3 months (until due for an office visit) Last qualifying visit: 06/04/2023 (with YVONNE HARRIS) Next scheduled visit: None [facility] Embedded Refills, Reference: [id number], 03/20/2024 1:11:40 AM DELMIT, Sam: MAT Refill Centralized Services - Primary Care [[id number]] ([id number]) documented in this encounter Plan of Treatment Upcoming Encounters Date Type Department Care Team (Late st Contact Info) Description 05/26/2024 8:00 AM CDT Telemedicine [facility] [address] [place] [address] Yvonne Harris DO [address] [facility], [place] [id number] 09/26/2024 3:00 PM NET ARCHITECT Telemedicine [facility] [address] [facility] [address] [place], [place] [address] Sheela Vazquez PA-C [address] [place] [address] documented as of this encounter Visit Diagnoses Diagnosis Seasonal allergies Allergic rhinitis, cause unspecified documented in this encounter Care Teams Production Officer Relationship Specialty Start Date End Date Yvonne Harris DO [address] [facility], [place] [address] PCP - General Family Practice 06/04/23 documented as of this encounter
--- OUTSIDE RECORDS SUMMARY | 2024-05-22 00:57 | XMS_ITS | Encounter Summary ---
Author Organization [facility] Address [address] [place] [address] Care Team Providers Care Will Call Clerk Name Role Phone Yvonne Harris DO Primary Care Provider [phone] Reason for Visit * Reason Comments QUESTIONS, GENERAL Entered automaticall y based on patient selection in [employer]. Encounter Details Date Type Department Care Team ([facility] st Contact Info) Description 03/01/2024 12:40 PM CDT E-Visit [address] [id number] Yvonne Harris DO [address] [place] [phone] Dx: SOB (shortness of breath) Social History Tobacco Use Types Packs/Day Years [...] as of this encounter Nursing Notes * Maria A Trammell RN - 03/01/2024 12:47 PM CDT Renewed medication per medication refill standing order. Requested Prescriptions Signed Prescriptions Disp Refills mometasone (ASMANEX HFA) 100 MCG/ACT inhaler 39 g 0 Sig: Inhale 2 Puffs two times a day. Rinse mouth/gargle after use. Authorizing Provider: YVONNE HARRIS Ordering User: MARIA A TRAMMELL * Marvin Maradiaga Xrwcomm - 03/01/2024 12:41 PM CDT mometasone (ASMANEX HFA) 100 MCG/ACT inhaler Medication started: 02/04/2023 Last ordered by YVONNE HARRIS: 02/04/2023 (391 days ago) QTY: 1, Refills: 11, Sig: inhale 2 puffs two times a day. rinse mouth/gargle after use. (unchanged) -> The most recent order on 02/04/2024. -> Refill x 3 months (until due for an office visit) -> Calculate the quantity and number of refills manually. Last qualifying visit: 06/04/2023 (with YVONNE HARRIS) Next scheduled visit: None [facility] Embedded Refills, Reference: [id number], 03/01/2024 12:41:55 PM CDT, Pool: MAT Refill Centralized Services - Primary Care [[id number]] ([id number]) documented in this encounter Plan of Treatment Upcoming Encounters Date Type Department Care Team (Late st Contact Info) Description 05/26/2024 8:00 AM CDT Telemedicine [facility] [address] [facility], [place] [address] Yvonne Harris DO [address] [place], [place] [address] 09/26/2024 3:00 PM AIRPLANE TECHNICIAN Telemedicine [facility] [address] [facility] [address] [place], [place] [address] Sheela Vazquez PA-C [address] [place] [address] documented as of this encounter Visit Diagnoses Diagnosis SOB (shortness of breath) Shortness of breath documented in this encounter Care Teams Will Call Clerk Relationship Specialty Start Date End Date Yvonne Harris DO [address] [facility] [place] [address] PCP - General Family Practice 06/04/23 documented as of this encounter
--- OUTSIDE RECORDS SUMMARY | 2024-05-22 00:57 | XMS_ITS | Encounter Summary ---
Author Organization [facility] Address [address] [place] [address] Care Team Providers Care Tool And Production Planner Name Role Phone Yvonne Harris DO Primary Care Provider [phone] Reason for Visit * Reason Comments Refill chlorthalidone (HYGR OTON) 25 MG tablet [Pharmacy Med Name: CHLORTHALIDONE 25 MG TABLET] Encounter Details Date Type Department Care Team ([facility] st Contact Info) Description 05/01/[address] [phone] Yvonne Harris DO [address] [place], [place] [phone] Refill (chlorthalidone (HYGROTON) 25 MG tablet [Pharmacy Med Name: CHLORTHALIDONE 25 MG TABLET]) Social History Tobacco Use Types [...] as of this encounter Nursing Notes * Marcella Quiles RN - 05/02/2024 8:25 PM CDT Further Assistance Needed on Refill from Clinician RN reviewed. Patient due for Lab(s). > Cr, K, and Na are overdue (performed over 15 months ago, required every 12 months) -> Cr is abnormal (1.1 mg/dL lies outside 0.55 mg/dL - 1.02 mg/dL) -> Na is abnormal (134 mEq/L lies outside 135.0 mEq/L - 145.0 mEq/L) Last qualifying visit: 06/04/2023 (with YVONNE HARRIS) Next scheduled visit: 05/05/2024 (with YVONNE HARRIS) Review pended order for accuracy and sign if appropriate, Clinician to order lab(s) and document ifpatient is due for lab only visit or office visit and lab, and Route to [place] to schedule appointment Requested Prescriptions Pending Prescriptions Disp Refills chlorthalidone (HYGROTON) 25 MG tablet [Pharmacy Med Name: CHLORTHALIDONE 25 MG TABLET] 90 Tablet 0 Sig: take 1 tablet by mouth every day documented in this encounter Plan of Treatment Upcoming Encounters Date Type Department Care Team (Late st Contact Info) Description 05/26/2024 8:00 AM CDT Telemedicine [facility] [address] [place] [address] Yvonne Harris DO [address] [place], [place] [phone] 09/26/2024 3:00 PM WORSTED WINDER Telemedicine [facility] [address] [facility] [address] [place], [place] [address] Sheela Vazquez PA-C [address] [place], [place] [phone] documented as of this encounter Visit Diagnoses Diagnosis Essential hypertension (HRC) Unspecified essential hypertension documented in this encounter Care Teams Tool And Production Planner Relationship Specialty Start Date End Date Yvonne Harris DO [address] [place] [address] PCP - General Family Practice 06/04/23 documented as of this encounter
--- OUTSIDE RECORDS SUMMARY | 2024-05-22 00:57 | XMS_ITS | Encounter Summary ---
[facility] Address [address] [place] [address] Care Team Providers Care Customer Service Dispatcher Name Role Phone Maricarmen Reyes DO Primary Care Provider [phone] Reason for Referral * Procedure/Equipment (Routine) - Incomplete Specialty Diagnoses / Procedures Referred By Contac t Referred To Contact Diagnoses Encounter for screening mammogram for malignant neoplasm of breast Procedures MM Mammogram Screening Bilat W CAD Maricarmen Reyes DO [address] [place] [address] Referral ID Status Reason Start Date Expiration Date V isits Requested Visits Authorized [id number] Incomplete 05/05/2024 08/04/2025 1 1 Reason for Visit * Reason Comments ASTHMA Encounter Details Date Type Department Care Team (Late st Contact Info) Description 05/05/2024 1:30 PM CDT Office Visit [address] [address] Maricarmen Reyes DO [address] [place] [address] Essential hypertension (HRC) (Primary Dx); Screening for colon cancer; Encounter for screening mammogram for malignant neoplasm of breast; Pre-diabetes; Encounter for long-term (current) use of medications; Morbid obesity with BMI of 40.0-44.9, adult (HRC); Anxiety (HRC); Seasonal allergies; Screening cholesterol level; Mild persistent asthma without complication (HRC); Abnormal uterine bleeding (AUB); Bee sting allergy Social History Tobacco Use Types Packs/Day Years [...] on file documented as of this encounter Last Filed Vital Signs Vital Sign Reading Time Taken Comments Blood Pressure 126/88 05/05/2024 1:24 PM CDT Pulse 99 05/05/2024 1:24 PM CDT Temperature - - Respiratory Rate - - Oxygen Saturation - - Inhaled Oxygen Concentration - - Weight 103.9 kg (229 lb) 05/05/2024 1:24 PM CDT Height 160 cm (5' 3) 05/05/2024 1:24 PM CDT Body Mass Index 40.57 05/05/2024 1:24 PM CDT documented in this encounter Patient Instructions * Patient Instructions* Elinor Lagos LPN - 05/05/2024 1:30 PM CDT Healthy Weight Matters Understanding body mass index Your BMI is on your After Visit Summary under ???Today???s Visit.?? You can also find a BMI calculator on the National [place] [employer] website at www.nhlbi.nih.gov/health/educational/lose_wt/BMI/bmicalc.htm. BMI ranges for adults BMI BMI categories Below 18.5 Underweight 18.5 to 24.9 Normal weight 25.0 to 29.9 Overweight 30.0 and above Obese If you are overweight or have obesity, your risk increases for developing health problems, such as type 2 diabetes, heart disease, high blood pressure and stroke. Your BMI measurement alone cannot predict your health risk. But if you know your BMI is high, you can take steps to set healthy goals and improve your overall well-being. What can I do to improve my BMI? Losing weight is an important way to reduce your BMI and improve your overall health and well- being. Start small. Aim to lose a few pounds to begin rather than worry about your ideal weight. Here are some tips: + Be physically active. Do activities that you enjoy, give you energy and are safe for you to do.Gradually build up the intensity (how hard your body is working) of activity. Long-term, aim for 30 minutes or more of activity most days of the week. Remember to check with your doctor before starting any physical activity program. + Eat real (not processed) food. Eat mostly vegetables, fruit, whole grains and lean proteins. Thatway, you--not food manufacturers--control the ingredients that go into your meals. + Aim for 5 servings of fruits and vegetables a day. Choose a variety of vegetables with different colors. Have fresh fruit for dessert. Limit deep-fried vegetables, such as guamanian fries. + Choose lean protein, such as chicken or fish. Try non-meat sources of protein such as beans, soy and other legumes. + Choose whole grains. Whole grain foods, such as whole-wheat bread, brown rice, barley, quinoa andoatmeal, contain the entire grain kernel and are better for your health. Limit refined grains, suchas white bread and rice. + Satisfy hunger with unsaturated fat. Fat helps you feel satisfied. Choose unsaturated fats, such as canola or olive oils, nuts and seeds, oil-based dressings and avocados. Limit saturated fats, which are found in animal products and some plant oils, such as coconut and palm oils. + Pay attention to portion sizes. Use smaller plates, bowls and glasses. Portion out foods before you eat. + Drink water or unsweetened beverages. Avoid soda, sweetened coffees and teas, energy drinks and sports drinks, which are full of added sugar that your body does not need. Water is always the best option. + Eat mindfully. Take time to fully enjoy your food and pay attention to what you are eating. Make meals last 15 to 30 minutes. This gives your body a chance to become satisfied and tell your brain to stop eating. Pay attention to what you are eating, rather than doing other activities such as watching TV or driving. This helps you pay attention to your body???s signals of hunger and fullness. + Share meals when eating at restaurants, or put half of the entr??e in a to-go container before you start eating. Nutrition Services One-on-one visits with a registered dietitian are available at various clinic locations to help youdevelop a personalized plan for managing your weight. We also offer classes led by dietitians on a variety of topics. To schedule an appointment, find the clinic that works best for you. + For [facility], call [phone]. + For [facility] locations, call [phone]. + For [facility] and [facility], call [phone]. + For [facility] and [facility], call [phone]. + For [facility], call [phone]. (12/2018) [facility] documented in this encounter Progress Notes * Maricarmen Reyes DO - 05/05/2024 1:30 PM CDT SUBJECTIVE: Rima Riley is a 48 y.o. female here for follow up. Hypertension: blood pressure currently well controlled with chlorthalidone and lisinopril. No chestpain, palpitations or SOB. Anxiety: mood well controlled with sertraline 50mg daily. Also taking wellbutrin prescribed by bariatric clinic to help with weight loss, feels this is working well for her. Would like to stay on current dose of sertraline at this time. Had been prescribed naltrexone, did not like how it made her feel and has stopped taking. Asthma: Has been using mometasone inhaler with benefit, typically using once daily, occasionally will use albuterol inhaler, tends to require with respiratory infections. No current wheezing, cough or shortness breath. Notes menses have changed in duration, continues to have monthly menses, some months are shorter, other months longer. No menorrhagia. Has also been noticing flashes, wonders if she is going through menopause. Her sister went through menopause at age 48. Past medical, family, and social history reviewed and updated. Current medications reviewed and updated. buPROPion (WELLBUTRIN XL) 150 MG 24 hour release tablet, Take 1 Tablet (150 mg) by mouth daily., Disp: 90 Tablet, Rfl: 1 chlorthalidone (HYGROTON) 25 MG tablet, Take 1 Tablet (25 mg) by mouth daily., Disp: 90 Tablet, Rfl: 3 lisinopril (ZESTRIL) 20 MG tablet, Take 1 Tablet (20 mg) by mouth daily., Disp: 90 Tablet, Rfl: 3 mometasone (ASMANEX HFA) 100 MCG/ACT inhaler, Inhale 2 Puffs two times a day. Rinse mouth/gargle after use., Disp: 39 g, Rfl: 3 naltrexone (REVIA) 50 MG tablet, Take 1 Tablet (50 mg) by mouth daily., Disp: 90 Tablet, Rfl: 1 sertraline (ZOLOFT) 50 MG tablet, Take 1 Tablet (50 mg) by mouth daily., Disp: 90 Tablet, Rfl: 3 No current facility-administered medications on file as of 05/05/2024. OBJECTIVE: BP 126/88 (BP Location: Left Arm, BP Cuff Size: Large) Pulse 99 Ht 5' 3 (1.6 m) Wt 229 lb (103.9 kg) LMP 04/23/2024 (Approximate) BMI 40.57 kg/m?? Vitals reviewed General: Well developed, well nourished, in no acute distress Head: atraumatic, normocephalic Eyes: EOMI, PERRL Heart: normal S1 and S2, regular rhythm, no murmur Lungs: CTA bilaterally, no wheeze, no crackle Skin: warm and well perfused, no rashes noted Neuro: gait is normal Psyche: normal affect ASSESSMENT/PLAN: Rima was seen today for asthma. Diagnoses and all orders for this visit: Essential hypertension (HRC) - Creatinine / GFR; Future - chlorthalidone (HYGROTON) 25 MG tablet; Take 1 Tablet (25 mg) by mouth daily. - lisinopril (ZESTRIL) 20 MG tablet; Take 1 Tablet (20 mg) by mouth daily. - Electrolyte Panel; Future Screening for colon cancer - FIT, OCCULT BLOOD, STOOL; Future Encounter for screening mammogram for malignant neoplasm of breast - MM Mammogram Screening Bilat W CAD; Future Pre-diabetes - Hgb A1C; Future Encounter for long-term (current) use of medications - Creatinine / GFR; Future Morbid obesity with BMI of 40.0-44.9, adult (HRC) Anxiety (HRC) - sertraline (ZOLOFT) 50 MG tablet; Take 1 Tablet (50 mg) by mouth daily. Seasonal allergies - fexofenadine (JAYME) 180 MG tablet; Take 1 Tablet (180 mg) by mouth daily. - fluticasone propionate (FLONASE) 50 MCG/ACT nasal solution; Place 2 Sprays into both nostrils daily. Screening cholesterol level - LDL Cholesterol, Direct Measured; Future - Cholesterol, Total and HDL; Future Mild persistent asthma without complication (HRC) - mometasone (ASMANEX HFA) 100 MCG/ACT inhaler; Inhale 2 Puffs two times a day. Rinse mouth/gargle after use. - ALBUterol sulfate HFA 108 (90 Base) MCG/ACT inhaler; Inhale 1-2 Puffs every 4 hours as needed forWheezing. Abnormal uterine bleeding (AUB) - TSH; Future Bee sting allergy - EPINEPHrine (EPIPEN) 0.3 MG/0.3ML injection; Inject 0.3 mL (0.3 mg) intramuscularly as needed. May repeat. Reviewed asthma management with patient, recommend continued use of controller inhaler with twice daily use. Patient has not had formal asthma testing however has noticed significant improvement in breathing with inhaler use, could consider formal PFTs in future. Blood pressure well controlled today, refills provided. Will check monitoring lab work as ordered above. Suspect patient's irregular menses related to perimenopause, will check TSH. Follow-up as needed. Options for treatment and follow-up care were reviewed with the patient and/or guardian. Rima Riley and/or guardian engaged in the decision making process and verbalized understanding of the options discussed and agreed with the final plan. Maricarmen Reyes DO documented in this encounter Plan of Treatment Upcoming Encounters Date Type Department Care Team (Late st Contact Info) Description 05/26/2024 8:00 AM CDT Telemedicine [address] [address] Maricarmen Reyes DO [address] [facility], [place] [id number] 09/26/2024 3:00 PM BIOSOLIDS MANAGEMENT TECHNICIAN Telemedicine [facility] [address] [facility] [address] [place], [place] [address] Sheela Vazquez PA-C [address] [place], [place] [phone] Scheduled Orders Name Type Priority Associated Diagnoses Orde r Schedule FIT, OCCULT BLOOD, STOOL Lab Routine Screening for colon cancer Expected: 05/05/2024, Expires: 05/05/2025 MM Mammogram Screening Bilat W CAD Imaging New Routine Encounter for screening mammogram for malignant neoplasm of breast Expected: 05/05/2024 (Approximate), Expires: 05/05/2025 documented as of this encounter Results * TSH (05/05/2024 2:04 PM CDT) TSH, Sensitive 2.26 0.30 - 4.50 uIU/mL 05/05/2024 6:53 PM CDT [facility] Blood Venipuncture / Unknown 05/05/2024 2:04 PM CDT 05/05/2024 2:04 PM CDT Maricarmen Reyes DO LAB_1 [facility] [address] [place], [place] [id number] [place] [address] * (ABNORMAL) Cholesterol, Total and HDL (05/05/2024 2:04 PM CDT) Cholesterol 299(H) 0 - 199 mg/dL 05/05/2024 6:37 PM CDT [facility] HDL Cholesterol 58 >=40 mg/dL 6:37 PM CDT [facility] Non HDL Chol, Calculated 241(H) <=159 mg/dL 05/05/2024 6:37 PM CDT [facility] Blood Venipuncture / Unknown 05/05/2024 2:04 PM CDT 05/05/2024 2:04 PM CDT Maricarmen Reyes DO LAB_1 Performing Organization Address [facility] Co de Phone Number [facility] [address] * (ABNORMAL) LDL Cholesterol, Direct Measured (05/05/2024 2:04 PM CDT) LDL, Direct 237(H) <=130 mg/dL 05/05/2024 6:52 PM CDT [facility] Blood Venipuncture / Unknown 05/05/2024 2:04 PM CDT 05/05/2024 2:04 PM CDT Maricarmen Reyes DO LAB_1 Performing Organization Address [facility] Phone Number [facility] [address] * (ABNORMAL) Electrolyte Panel (05/05/2024 2:04 PM CDT) Sodium 133(L) 136 - 145 mmol/L 05/05/2024 6:37 PM CDT [facility] Potassium 3.7 3.5 - 5.1 mmol/L 05/05/2024 6:37 PM CDT [facility] Chloride 99 98 - 109 mmol/L 05/05/2024 6:37 PM CDT [facility] CO2 20 20 - 29 mmol/L 05/05/2024 6:37 PM CDT [facility] Anion Gap 14 6 - 16 mmol/L 05/05/2024 6:37 PM CDT [facility] Blood Venipuncture / Unknown 05/05/2024 2:04 PM CDT 05/05/2024 2:04 PM CDT Maricarmen Reyes DO LAB_1 Performing Organization Address [facility] Co de Phone Number [facility] [place] * (ABNORMAL) Creatinine / GFR (05/05/2024 2:04 PM CDT) Creatinine 1.03(H) 0.55 - 1.02 mg/dL 05/05/2024 6:37 PM CDT [facility] GFR, Estimated >60 >60 mL/min/1.7 3m2 05/05/2024 6:37 PM CDT [facility] Blood Venipuncture / Unknown 05/05/2024 2:04 PM CDT 05/05/2024 2:04 PM CDT Maricarmen Reyes DO LAB_1 Performing Organization Address City/[facility]/ZIP Co de Phone Number [facility] [address] * (ABNORMAL) Hgb A1C (05/05/2024 2:04 PM CDT) Hemoglobin A1C 5.8(H) <=5.6 % 05/06/2024 9:56 AM CDT [facility] Estimated Average Glucose (Calc) 120 < 117 mg/dL 05/06/2024 9:56 AM CDT [facility] Comment:Estimated average gl ucose (eAG) converts A1c into glucose units (mg/dL) and estimates average glucose over the past approximately 3 months. The eAG reference interval (<117 mg/dL) corresponds to an A1c of <5.7%. Blood Venipuncture / Unknown 05/05/2024 2:04 PM CDT 05/05/2024 2:04 PM CDT Narrative [facility] - 05/06/2024 9:56 AM CDT For patients not previously diagnosed with diabetes: 5.7-6.4%: Increased risk for diabetes 6.5% and greater: Diagnostic for diabetes For patients diagnosed with diabetes: <8.0%: Goal of therapy for ages 18-75 Clinicians may recommend a higher or lower goal for specific individuals. Maricarmen Reyes DO LAB_1 [facility] [address] [place] [id number] documented in this encounter Visit Diagnoses Diagnosis Essential hypertension (HRC)- Primary Unspecified essential hypertension Screening for colon cancer Special screening for malignant neoplasms, colon Encounter for screening mammogram for malignant neoplasm of breast Other screening mammogram Pre-diabetes Other abnormal glucose Encounter for long-term (current) use of medications Encounter for long-term (current) use of other medications Morbid obesity with BMI of 40.0-44.9, adult (HRC) Anxiety (HRC) Anxiety state, unspecified Seasonal allergies Allergic rhinitis, cause unspecified Screening cholesterol level Screening for lipoid disorders Mild persistent asthma without complication (HRC) Unspecified asthma Abnormal uterine bleeding (AUB) Bee sting allergy Toxic effect of venom documented in this encounter Care Teams Customer Service Dispatcher Relationship Specialty Start Date End Date Maricarmen Reyes DO [address] [place] [address] PCP - General Family Practice 06/04/23 documented as of this encounter
--- OUTSIDE RECORDS SUMMARY | 2024-05-22 00:57 | XMS_ITS | Encounter Summary ---
Author Organization [facility] Address [address], [place] [address] Care Team Providers Care Break And Load Operator Name Role Phone Maricarmen Simms DO Primary Care Provider Reason for Visit * Reason Comments Refill Wellbutrin Encounter Details Date Type Department Care Team (Late st Contact Info) Description 04/18/2024 Refill [facility] [address] [facility] [address] [place], [place] [address] Sheela Vazquez PA-C [address] [place], [place] [phone] Refill (Wellbutrin ) Social History Tobacco Use Types Packs/Day Years [...] Info) Description 05/26/2024 8:00 AM CDT Telemedicine [facility] [address] [place] [address] Maricarmen Simms DO [address] [place] [address] 09/26/2024 3:00 PM FUEL CELL REPAIRER Telemedicine [facility] [address] [facility] [address] [place] [address] Sheela Vazquez PA-C [address] [place], [place] [address] documented as of this encounter Visit Diagnoses Diagnosis Morbid obesity with BMI of 40.0-44.9, adult (HRC) documented in this encounter Care Teams Break And Load Operator Relationship Specialty Start Date End Date Maricarmen Simms DO [address] [place] [address] PCP - General Family Practice 06/04/23 documented as of this encounter
--- OUTSIDE RECORDS SUMMARY | 2024-05-22 00:57 | XMS_ITS | Encounter Summary ---
Author Organization [facility] Address [address] [place] [address] Care Team Providers Care Special Loan Officer Name Role Phone Maricarmen Simms DO Primary Care Provider [phone] Reason for Visit * Reason Comments Medication Questions Entered automatical ly based on patient selection in [employer]. Encounter Details Date Type Department Care Team ([facility] Contact Info) Description 04/22/2024 1:45 PM CDT E-Visit [facility] [address] [facility] [address] [place], [place] [phone] Sheela Vazquez PA-C [address] [place], [place] [phone] Chief Comp: Medication Questions Social History Tobacco [...] Upcoming Encounters Date Type Department Care Team ([facility] Contact Info) Description 05/26/2024 8:00 AM CDT Telemedicine [facility] [address] [place], [place] [address] Maricarmen Simms DO [address] [place] [facility] [place] [address] 09/26/2024 3:[address] SUPERVISOR Telemedicine [facility] [address] [facility] [address] [place], [place] [address] Sheela Vazquez PA-C [address] [place], [place] [address] documented as of this encounter Visit Diagnoses Not on filedocumented in this encounter Care Teams Special Loan Officer Relationship Specialty Start Date End Date Maricarmen Simms DO [address] [place] [facility] [address] PCP - General Family Practice 06/04/23 documented as of this encounter
--- OUTSIDE RECORDS SUMMARY | 2024-05-22 00:57 | XMS_ITS | Encounter Summary ---
Author Organization [facility] Address [address] [place] [address] Care Team Providers Care Doorperson Or Luggage Porter Name Role Phone Maricarmen Simms DO Primary Care Provider [phone] Reason for Visit * Reason Onset Date Comments Refill 04/22/2024 bupropion Encounter Details Date Type Department Care Team (Late st Contact Info) Description 04/22/2024 Refill [facility] [address] [facility] [address] [place], [place] [phone] Sheela Vazquez PA-C [address] [place] [address] Refill (bupropion) Social History Tobacco Use Types Packs/Day Years [...] as of this encounter Nursing Notes * Krissy Thomas, RN - 04/22/2024 1:19 PM CDT Medication refill request. Patient advised on 01/19/24 that she needed appt for future refills. Patient scheduled follow-up appt today for 2/10/25. Date last visit:07/22/23 Future appointment is scheduled on 09/26/24. Follow up requested by provider: 4 mos Since last seen she has no showed or cancelled the following appointments: /KELSEY on 11/30/23 Labs are up to date Yes Medication refill request routed to clinician for review. documented in this encounter Plan of Treatment Upcoming Encounters Date Type Department Care Team (Late st Contact Info) Description 05/26/2024 8:00 AM CDT Telemedicine [facility] [address] [facility], [place] [phone] Maricarmen Simms DO [address] [place] [address] 09/26/2024 3:00 PM SPORTS CARTOONIST Telemedicine [facility] [address] [facility] [address] [place], [place] [address] Sheela Vazquez PA-C [address] [place], [place] [address] documented as of this encounter Visit Diagnoses Diagnosis Morbid obesity with BMI of 40.0-44.9, adult (HRC) documented in this encounter Care Teams Doorperson Or Luggage Porter Relationship Specialty Start Date End Date Maricarmen Simms DO [address] [facility], [place] [phone] PCP - General Family Practice 06/04/23 documented as of this encounter
[2024-05-22 02:04] LABS: Chloride* 91 mmol/L (96-114); Potassium* 3.3 mmol/L (3.6-5.1); Sodium* 130 mmol/L (135-149)
[2024-05-22 02:06] LABS: Creatinine* 0.9 mg/dL (0.5-1.5); Est. Creatinine Clearance* 63.92; Estimated Glomerular Filt Rate 79 ml/min
[2024-05-22 02:07] LABS: Anion Gap 17 mEq/L (7-15); Blood Urea Nitrogen* 12 mg/dL (5-24); Carbon Dioxide* 22 mmol/L (20-32); Glucose* 130 mg/dL (60-115)
[2024-05-22] MEDS: MIDAZOLAM HCL 1 MG/ML inj 2 MG IVP (02:13)
[2024-05-22] MEDS: KETAMINE HCL 100 MG/ML inj 25 MG IVP ×3 (02:18→04:52)
--- NOTE | 2024-05-22 02:39 | CRLHL7_ITS ---
For Patients: As a result of the Century Cures Act, medical imaging exams and procedure reports are released immediately into your electronic medical record. You may view this report before your referring provider. If you have questions, please contact your health care provider. Indication: Fracture dislocation postreduction. Technique: Right ankle 2 views. Comparison: 05/22/2024. Findings/Impression: Ankle has been placed in a cast. Unchanged fracture dislocation of the ankle. No new abnormality. Dictated by Pete Garcia MD @ 05/22/2024 3:27:14 AM (Electronically Signed)
--- NOTE | 2024-05-22 02:44 | W.ANESCHARGE ---
Anesthesia Charges Start Date/Time Anesthesia Start Date: 05/22/24 Anesthesia Start Time: 02:10 Stop Date/Time Anesthesia Stop Date: 05/22/24 Anesthesia Stop Time: 02:40 Summary Emergency: MANAGER FINANCIAL SERVICES
[2024-05-22] MEDS: fentaNYL 100 MCG/2 ML inj 75 MCG IVP (04:44)
--- NOTE | 2024-05-22 04:59 | CRLHL7_ITS ---
For Patients: As a result of the Century Cures Act, medical imaging exams and procedure reports are released immediately into your electronic medical record. You may view this report before your referring provider. If you have questions, please contact your health care provider. Indication: Postreduction. Technique: Two view(s) of the right ankle. Comparison: Radiographs 05/22/2024. Findings: Splint obscures fine osseous detail. Overall, there is slightly improved alignment of the tibiotalar joint and distal fibular fracture compared to initial post reduction attempts; however, there is persistent medial clear space widening as well as lateral tibiotalar subluxation. There is approximately 1 shaft with lateral displacement of the distal fibular fracture with decrease in apex medial angulation. A small fracture avulsion fragment is seen adjacent to the medial malleolus. There may be a small posterior malleolar fracture fragment as well. Talar dome appears intact. Impression: Slightly improved tibiotalar and distal fibular fracture alignment status post repeat reduction attempt. There is persistent medial clear space widening and lateral tibiotalar subluxation without dislocation. Dictated by Hedy Adams MD @ 05/22/2024 5:54:34 AM (Electronically Signed)
--- NOTE | 2024-05-22 12:06 | CRLHL7_ITS ---
For Patients: As a result of the Cures Act, medical imaging exams and procedure reports are released immediately into your electronic medical record. You may view this report before your referring provider. If you have questions, please contact your health care provider. Indication: Fall Technique: Two views of the right ankle Comparison: None Findings/Impression: Fracture dislocation of the tibia and fibula. Dictated by Angel Katz MD @ 05/22/2024 12:24:00 AM (Electronically Signed)
== END 2024-05-22 06:13 | disposition home or self-care (01) ==
PROVIDERS: Emergency Provider Family Medicine; Visit Provider Family Medicine
DX: S82.891A Other fracture of right lower leg, initial encounter for closed fracture (principal); W19.XXXA Unspecified fall, initial encounter; F10.129 Alcohol abuse with intoxication, unspecified
CPT/HCPCS: 27752; 01462; 36415; 73600; 76000; 80048; 82077; 96374; 96375; 96376; 99140; 99156; 99283; 99284; 99285; J1171; J2250; J2405; J3010; J3490; J7030

== ENCOUNTER 2024-05-22 12:33 | Emergency (ER) | payer OTHER, SELFPAY ==
[2024-05-22] VITALS (29 sets, daily range): BP systolic 85–147; BP diastolic 56–95; PULSE 74–109; RESP 11–24; TEMP 36.1; O2SAT 86–100; BMI 41.6
--- NOTE | 2024-05-22 | CRLHL7_ITS ---
For Patients: As a result of the Cures Act, medical imaging exams and procedure reports are released immediately into your electronic medical record. You may view this report before your referring provider. If you have questions, please contact your health care provider. Indication: Right ankle fracture, reduction Technique: Two fluoroscopic images of the right ankle. Fluoroscopic time 7.3 seconds. IMPRESSION: Fluoroscopic guidance for closed reduction. Dictated by Osito Brown MD @ 05/22/2024 3:43:47 PM (Electronically Signed)
--- NOTE | 2024-05-22 12:51 | ED.GENADULT ---
HPI - General Adult General Date Seen: 05/22/24 Chief complaint: Extremity Pain/Injury, Lower Stated complaint: R ankle injury Time Seen by Provider: 05/22/24 12:33 Source: patient Mode of arrival: wheelchair Limitations: no limitations History of Present Illness HPI narrative: Patient is a 48-year-old female presenting to the emergency department after an ankle fracture and dislocation. She was seen last night for this issue after a fall and attempt to reduce it was performed by the provider. He was in close contact with orthopedics all night and informed them he was having difficulty reducing it. A final x-ray was done and the on-call ortho PA did not see these images until this morning. Does at that time he call them to return to emergency department for improvement in reduction. He also called the emergency department informed me that patient was coming. Patient is now here in states she has some intermittent pain to the ankle. Heart rate now at this moment the pain is okay. Denies any other injuries. Concerns no Related Data Home Medications ?Medication ?Instructions ?Recorded ?Confirmed bupropion HCl 150 mg 24 hr tablet, 150 mg PO DAILY 05/22/24 05/22/24 extended release chlorthalidone 25 mg tablet 25 mg PO DAILY 05/22/24 05/22/24 lisinopril 10 mg tablet 10 mg PO DAILY 05/22/24 05/22/24 sertraline 50 mg tablet 50 mg PO DAILY 05/22/24 05/22/24 Previous Rx's ?Medication ?Instructions ?Recorded ondansetron 4 mg disintegrating 4 mg PO Q6H #20 tabs 05/22/24 tablet oxycodone 5 mg tablet 5 mg PO Q6H PRN pain #12 tabs 05/22/24 Allergies Allergy/AdvReac Type Severity Reaction Status Date / Time Penicillins Allergy Verified 05/22/24 12:52 Sulfa (Sulfonamide Allergy Verified 05/22/24 12:52 Antibiotics) bees Allergy Uncoded 05/21/24 23:59 Review of Systems Narrative: Pertinent systems reviewed and were negative unless stated in HPI PFSH PFSH Social History Smoking Status: Former smoker What tobacco products do you use: cigarettes Smoking packs per day: 0.25 Smoking cigarettes per day: 5.0 Years smoked: 4 Smoking pack-years: 1.00 Do you use any of these nicotine containing products: None How often do you have a drink containing alcohol: 2-3 times a week How many standard drinks containing alcohol do you have on a typical day: 5 or 6 How often do you have six or more drinks on one occasion: Less than monthly AUDIT-C Alcohol total score: 6 Non-prescribed substance use: denies use service: No Exam Narrative: Exam Narrative: Const: Well-nourished, Well-developed, in mild distress Eyes: PERRL, no conjunctival injection, and symmetrical lids HENT: Atraumatic external nose and ears. Moist mucous membranes. Neck: Symmetric, trachea midline, No thyromegaly. CVS: RRR, No murmurs or gallops. Peripheral pulses 2+ and equal in all extremities RESP: Unlabored respiratory effort. Clear to auscultation bilaterally. GI: Nontender/Nondistended, No rebound or guarding. MSK: Splint placed to right lower extremity Skin: Warm, Dry. No rashes or lesions. Neuro: Normal Muscle tone, No focal neurological deficits. Psych: Awake, Alert, & Oriented x3. Appropriate mood and affect. Const: Vital Signs, click to edit/add: Vital Signs - 24 hr 05/22/24 12:49 Temperature 97 F L Pulse Rate [Right Pulse Oximeter] 107 H Respiratory Rate 18 Blood Pressure [Le ft Upper Arm] 147/94 H Pulse Oximetry 98 Oxygen Delivery Me thod Room Air Course Vital Signs Vital signs: Initial Vital Signs Temperature 97 F L 05/22/24 12:49 Temperature Source Temporal Artery Scan 05/22/24 12:49 Pulse Rate 107 H 05/22/24 12:49 Pulse Rhythm Regular 05/22/24 12:49 Respiratory Rate 18 05/22/24 12:49 Blood Pressure 147/94 H 05/22/24 12:49 Blood Pressure Mean 111 H 05/22/24 12:49 Blood Pressure Position Supine 05/22/24 12:49 Pulse Oximetry 98 05/22/24 12:49 Oxygen Delivery Method Room Air 05/22/24 12:49 Vital Signs Temperature 97 F L 05/22/24 12:49 Pulse Rate 107 H 05/22/24 12:49 Respiratory Rate 18 05/22/24 12:49 Blood Pressure 147/94 H 05/22/24 12:49 Pulse Oximetry 98 05/22/24 12:49 Oxygen Delivery Method Room Air 05/22/24 12:49 Temperature 97 F L 05/22/24 12:49 Pulse Rate 107 H 05/22/24 12:49 Respiratory Rate 18 05/22/24 12:49 Blood Pressure 147/94 H 05/22/24 12:49 Pulse Oximetry 98 05/22/24 12:49 Oxygen Delivery Method Room Air 05/22/24 12:49 Medications Administered Medications: Discontinued Medications Generic Name Dose Route Start Last Admin Trade Name Freq PRN Reason Stop Dose Admin Hydromorphone HCl 0.5 mg 05/22/24 13:40 05/22/24 13:44 Hydromorphone 0.5 Mg/0.5 Ml Inj IVP 05/22/24 13:41 0.5 mg ONCE ONE Administration Ondansetron HCl 4 mg 05/22/24 12:55 05/22/24 12:59 Ondansetron 2 Mg/Ml Inj IVP 05/22/24 12:56 4 mg ONCE ONE Administration Medical Decision Making MDM Narrative Medical decision making narrative: Patient is a 48-year-old female presenting for right ankle fracture reduction. I spoke to the on-call PA, Darrel Drummond, with states he will come in to perform the reduction. Propofol will be used for sedation. Did give her Dilaudid prior to the sedation which made her nauseated and Zofran was given. She was able to tolerate the sedation and reduction. Myself performed the sedation while Darrel Drummond did the reduction. C-arm use to help verify reduction. Will be discharged with oxycodone, Zofran and a prescription for a commode. She is agreeable to this plan. Patient is still neurovascular intact. Discharge Plan Discharge Clinical Impression: Ankle fracture Qualifiers: Encounter type: subsequent encounter Fracture type: closed Laterality: right Ankle dislocation Qualifiers: Encounter type: subsequent encounter Laterality: right Qualified Code(s): S93.04XD - Dislocation of right ankle joint, subsequent encounter Patient Disposition: Home, Self-Care Condition: Improved Instructions: Ankle Fracture (DC) Additional Instructions: Follow-up with [facility]. Call them at Take Tylenol and ibuprofen for pain and if that is not working use the oxycodone. Also gave she has some Zofran for nausea. Return for new worsening symptoms. Prescriptions: New oxycodone 5 mg tablet 5 mg PO Q6H PRN (Reason: pain) Qty: 12 0RF ondansetron 4 mg tablet,disintegrating 4 mg PO Q6H Qty: 20 0RF No Action chlorthalidone 25 mg tablet 25 mg PO DAILY lisinopril 10 mg tablet 10 mg PO DAILY sertraline 50 mg tablet 50 mg PO DAILY bupropion HCl 150 mg tablet extended release 24 hr 150 mg PO DAILY Follow Up/Referrals: Provider,Not a Local [Primary Care Provider] - Stand Alone Forms: [employer] Instructions Procedures Procedural Sedation Written consent by: patient Verification/time out: correct patient Name of person perfmorming the procedure: Darrel Dominguez Indication: fracture/dislocation reduction ASA Class: II Mallampati classification: II. soft palate, fauces, uvula visible Patient Tolerated Procedure: well Complications: none Interventions: oxygen applied Additional Comments: Tall 400 mg propofol use
[2024-05-22] MEDS: ONDANSETRON 2 MG/ML inj 4 MG IVP (12:59)
--- OUTSIDE RECORDS SUMMARY | 2024-05-22 13:22 | XMS_ITS | Encounter Summary ---
Author Organization [facility] Address [address], [place] [address] Care Team Providers Care Pre School Teacher Name Role Phone Maricarmen Simms DO Primary Care Provider Reason for Visit * Reason Comments Refill Wellbutrin Encounter Details Date Type Department Care Team (Late st Contact Info) Description 04/18/2024 Refill [facility] [address] [place], [place] [address] Sheela Vazquez PA-C [address] [place], [place] [phone] Refill (Wellbutrin ) Social History Tobacco Use [...] Info) Description 05/26/2024 8:00 AM CDT Telemedicine [facility] [address] [place] [address] Maricarmen Simms DO [address] [place] [address] 09/26/2024 3:00 PM PERFORMANCE MAKEUP ARTIST Telemedicine [facility] [address] [place] [address] Sheela Vazquez PA-C [address] [place], [place] [address] documented as of this encounter Visit Diagnoses Diagnosis Morbid obesity with BMI of 40.0-44.9, adult (HRC) documented in this encounter Care Teams Pre School Teacher Relationship Specialty Start Date End Date Maricarmen Simms DO [address] [place] [address] PCP - General Family Practice 06/04/23 documented as of this encounter
--- OUTSIDE RECORDS SUMMARY | 2024-05-22 13:22 | XMS_ITS | Encounter Summary ---
Author Organization [facility] Address [address] [place] [address] Care Team Providers Care Head Piece Assembler Name Role Phone Yvonne Harris DO Primary Care Provider Reason for Visit * Reason Comments Refill fexofenadine (ALLEGR A) 180 MG tablet [Pharmacy Med Name: FEXOFENADINE HCL 180 MG TABLET] Encounter Details Date Type Department Care Team ([facility] st Contact Info) Description 03/20/[address] [address] Yvonne Harris DO [address] [place], [place] [id number] Refill (fexofenadine (JAYME) 180 MG tablet [Pharmacy [...] CDT Further Assistance Needed on Refill from Manager Card Patient is due for Qualifying Visit Medication [...] YVONNE HARRIS) Next scheduled visit: [facility] Embedded Refills, Reference: [id number], 03/20/2024 1:11:40 AM DELMIT, Sam: MAT Refill Centralized Services - Primary Care [[id number]] ([id number]) documented in this encounter Plan of Treatment Upcoming Encounters Date Type Department Care Team (Late st Contact Info) Description 05/26/2024 8:00 AM CDT Telemedicine [facility] [address] [place] [address] Yvonne Harris DO [address] [facility] [place] [address] 09/26/2024 3:00 PM CORRECTIONAL AGENCY DIRECTOR Telemedicine [facility] [address] [facility] [address] [place], [place] [address] Sheela Vazquez PA-C [address] [place] [address] documented as of this encounter Visit Diagnoses Diagnosis Seasonal allergies Allergic rhinitis, cause unspecified documented in this encounter Care Teams Head Piece Assembler Relationship Specialty Start Date End Date Yvonne Harris DO [address] [facility], [place] [address] PCP - General Family Practice 06/04/23 documented as of this encounter
--- OUTSIDE RECORDS SUMMARY | 2024-05-22 13:22 | XMS_ITS | Encounter Summary ---
Author [facility] Address [address] [place] [address] Care Team Providers Care Certified Dietary Manager Name Role Phone Yvonne Harris DO Primary Care Provider [phone] Reason for Visit * Reason Comments QUESTIONS, GENERAL Entered automaticall y based on patient selection in [facility]. Encounter Details Date Type Department Care Team ([facility] st Contact Info) Description 03/01/2024 12:40 PM CDT E-Visit [address] [address] Yvonne Harris DO [address] [place] [id number] Dx: SOB (shortness of breath) Social History [...] YVONNE HARRIS) Next scheduled visit: [facility] Embedded Refills, Reference: [id number], 03/01/2024 12:41:55 PM CDT, Pool: MAT Refill Centralized Services - Primary Care [[id number]] ([id number]) documented in this encounter Plan of Treatment Upcoming Encounters Date Type Department Care Team (Late st Contact Info) Description 05/26/2024 8:00 AM CDT Telemedicine [facility] [address] [facility] [place] [address] Yvonne Harris DO [address] [place], [place] [address] 09/26/2024 3:00 PM FORM TAMPER Telemedicine [facility] [address] [facility] [address] [place], [place] [address] Sheela Vazquez PA-C [address] [place] [address] documented as of this encounter Visit Diagnoses Diagnosis SOB (shortness of breath) Shortness of breath documented in this encounter Care Teams Certified Dietary Manager Relationship Specialty Start Date End Date Yvonne Harris DO [address] [facility], [place] [address] PCP - General Family Practice 06/04/23 documented as of this encounter
--- OUTSIDE RECORDS SUMMARY | 2024-05-22 13:22 | XMS_ITS | Encounter Summary ---
Author Organization [facility] Address [address] [place] [address] Care Team Providers Care Client Solutions Specialist Name Role Phone Maricarmen Simms DO Primary Care Provider [phone] Reason for Visit * Reason Comments Medication Questions Entered automatical ly based on patient selection in [facility]. Encounter Details Date Type Department Care Team ([facility] Contact Info) Description 04/22/2024 1:45 PM CDT E-Visit [facility] [address] [facility] [address] [place], [place] [phone] Sheela Vazquez PA-C [address] [place], [place] [phone] Chief Comp: Medication Questions Social History Tobacco [...] Upcoming Encounters Date Type Department Care Team ([facility] Contact Info) Description 05/26/2024 8:00 AM CDT Telemedicine [facility] [address] [place], [place] [address] Maricarmen Simms DO [address] [place] [address] 09/26/2024 3:00 PM STAMPING DIE MAKER BENCH Telemedicine [facility] [address] [facility] [address] [place], [place] [address] Sheela Vazquez PA-C [address] [place], [place] [address] documented as of this encounter Visit Diagnoses Not on filedocumented in this encounter Care Teams Client Solutions Specialist Relationship Specialty Start Date End Date Maricarmen Simms DO [address] [place] [address] PCP - General Family Practice 06/04/23 documented as of this encounter
--- OUTSIDE RECORDS SUMMARY | 2024-05-22 13:22 | XMS_ITS | Encounter Summary ---
Author Organization [facility] Address [address] [place] [address] Care Team Providers Care Agricultural Equipment Design Engineer Name Role Phone Maricarmen Simms DO Primary Care Provider Reason for Visit * Reason Onset Date Comments Refill 04/22/2024 bupropion Encounter Details Date Type Department Care Team (Late st Contact Info) Description 04/22/2024 Refill [facility] [address] [facility] [address] [place], [place] [phone] Sheela Vazquez PA-C [address] [place] [address] Refill (bupropion) Social History Tobacco [...] Info) Description 05/26/2024 8:00 AM CDT Telemedicine [facility] [address] [facility] [place] [address] Maricarmen Simms DO [address] [place] [address] 09/26/2024 3:00 PM PRODUCT BLENDING SUPERVISOR Telemedicine [facility] [address] [facility] [address] [place], [place] [address] Sheela Vazquez PA-C [address] [place], [place] [address] documented as of this encounter Visit Diagnoses Diagnosis Morbid obesity with BMI of 40.0-44.9, adult (HRC) documented in this encounter Care Teams Agricultural Equipment Design Engineer Relationship Specialty Start Date End Date Maricarmen Simms DO [address] [facility] [place] [address] PCP - General Family Practice 06/04/23 documented as of this encounter
--- OUTSIDE RECORDS SUMMARY | 2024-05-22 13:22 | XMS_ITS | Encounter Summary ---
Author Organization [facility] Address [address] [place] [address] Care Team Providers Care Hospital Cleaner Name Role Phone Maricarmen Simms DO Primary Care Provider [phone] Encounter Details Date Type Department Care Team (Late Contact Info) Description 05/05/2024 2:50 PM CDT Lab Visit [facility] [address] [place] [address] Health examination in population survey (Primary Dx); [...] Info) Description 05/26/2024 8:00 AM CDT Telemedicine [facility] [address] [place] [address] Maricarmen Simms DO [address] [place] [address] 09/26/2024 3:00 PM POT ROOM SUPERVISOR Telemedicine [facility] [address] [facility] [address] [place], [place] [address] Sheela Vazquez PA-C [address] [place] [address] documented as of this encounter Procedures Procedure [...] Collection Kit Prep (05/05/2024 2:04 PM CDT) [facility] FIT Kit Prep Fit Kit Given 05/05/2024 4:00 PM CDT [facility] Stool Non-blood Collection / Unknown 05/05/2024 2:04 PM CDT 05/05/2024 2:04 PM CDT Maricarmen Simms DO LAB_1 Performing Organization Address City/[facility]/ZIP Co de Phone Number [facility] [address] [place] [address], [place] * TSH (05/05/2024 2:04 PM CDT) TSH, Sensitive 2.26 0.30 - 4.50 uIU/mL 05/05/2024 6:53 PM CDT [facility] Blood Venipuncture / Unknown 05/05/2024 2:04 PM CDT 05/05/2024 2:04 PM CDT Maricarmen Simms DO LAB_1 Performing Organization Address [facility] Co de Phone Number [facility] [address] * (ABNORMAL) Cholesterol, Total and HDL (05/05/2024 2:04 PM CDT) Cholesterol 299(H) 0 - 199 mg/dL 05/05/2024 6:37 PM CDT [facility] HDL Cholesterol 58 >=40 mg/dL 6:37 PM CDT [facility] Non HDL Chol, Calculated 241(H) <=159 mg/dL 05/05/2024 6:37 PM CDT [facility] Blood Venipuncture / Unknown 05/05/2024 2:04 PM CDT 05/05/2024 2:04 PM CDT Maricarmen Simms DO LAB_1 Performing Organization Address [facility] Co de Phone Number [facility] [address] * (ABNORMAL) LDL Cholesterol, Direct Measured (05/05/2024 2:04 PM CDT) LDL, Direct 237(H) <=130 mg/dL 05/05/2024 6:52 PM CDT [facility] Blood Venipuncture / Unknown 05/05/2024 2:04 PM CDT 05/05/2024 2:04 PM CDT Maricarmen Simms DO LAB_1 Performing Organization Address [facility] de Phone Number [facility] [address] [place] [address] * (ABNORMAL) Electrolyte Panel (05/05/2024 2:04 PM CDT) Sodium 133(L) 136 - 145 mmol/L 05/05/2024 6:37 PM CDT [facility] Potassium 3.7 3.5 - 5.1 mmol/L 05/05/2024 6:37 PM CDT [facility] Chloride 99 98 - 109 mmol/L 05/05/2024 6:37 PM CDT [facility] CO2 20 20 - 29 mmol/L 05/05/2024 6:37 PM CDT [facility] Anion Gap 14 6 - 16 mmol/L 05/05/2024 6:37 PM CDT [facility] Blood Venipuncture / Unknown 05/05/2024 2:04 PM CDT 05/05/2024 2:04 PM CDT Maricarmen Simms DO LAB_1 Performing Organization Address [facility] Phone Number [facility] [address] [place] [address] * (ABNORMAL) Creatinine / GFR (05/05/2024 2:04 PM CDT) Creatinine 1.03(H) 0.55 - 1.02 mg/dL 05/05/2024 6:37 PM CDT [facility] GFR, Estimated >60 >60 mL/min/1.7 3m2 05/05/2024 6:37 PM CDT [facility] Blood Venipuncture / Unknown 05/05/2024 2:04 PM CDT 05/05/2024 2:04 PM CDT Maricarmencarol ann Simms DO LAB_1 Performing Organization Address City/[facility] Co de Phone Number [facility] [address] [place] [address], [facility] * (ABNORMAL) Hgb A1C (05/05/2024 2:04 PM CDT) Hemoglobin A1C 5.8(H) <=5.6 % 05/06/2024 9:56 AM CDT [facility] Estimated Average Glucose (Calc) 120 < 117 mg/dL 05/06/2024 9:56 AM T [facility] Comment:Estimated average gl ucose (eAG) converts A1c into glucose units (mg/dL) and estimates average glucose over the past approximately 3 months. The eAG reference interval (<117 mg/dL) corresponds to an A1c of <5.7%. Blood Venipuncture / Unknown 05/05/2024 2:04 PM CDT 05/05/2024 2:04 PM CDT Narrative [facility] - 05/06/2024 9:56 AM CDT For patients not previously diagnosed with diabetes: 5.7-6.4%: Increased risk for diabetes 6.5% and greater: Diagnostic for diabetes For patients diagnosed with diabetes: <8.0%: Goal of therapy for ages 18-75 Clinicians may recommend a higher or lower goal for specific individuals. Maricarmen Simms DO LAB_1 Performing Organization Address City/State/[facility] Co de Phone Number [facility] [address] [place] [address], [facility] documented in this encounter Visit Diagnoses Diagnosis Health examination in population survey- Primary Pre-diabetes Other abnormal glucose Encounter for long-term (current) use of medications Encounter for long-term (current) use of other medications Essential hypertension (HRC) Unspecified essential hypertension Screening cholesterol level Screening for lipoid disorders Abnormal uterine bleeding (AUB) documented in this encounter Care Teams Hospital Cleaner Relationship Specialty Start Date End Date Maricarmen [place] [address] [place] [address] PCP - General Family Practice 06/04/23 documented as of this encounter
--- OUTSIDE RECORDS SUMMARY | 2024-05-22 13:22 | XMS_ITS | Encounter Summary ---
Author Organization [facility] Address [address] [place] [address] Care Team Providers Care Test Desk Trouble Locator Name Role Phone Maricarmen Reyes DO Primary Care Provider Reason for Referral * Procedure/Equipment (Routine) - Incomplete Specialty Diagnoses / Procedures Referred By Contac t Referred To Contact Diagnoses Encounter for screening mammogram for malignant neoplasm of breast Procedures MM Mammogram Screening Bilat W CAD Maricarmen Reyes DO [address] [place] [address] Referral ID Status Reason Start Date Expiration Date V isits Requested Visits Authorized [id number] Incomplete 05/05/2024 08/04/2025 1 1 Reason for Visit * Reason Comments ASTHMA Encounter Details Date Type Department Care Team (Late st Contact Info) Description 05/05/2024 1:30 PM CDT Office Visit [address] [address] Maricarmen Reyes DO [address] [place] [address] Essential hypertension (HRC) (Primary Dx); [...] find a BMI calculator on the National Care[employer] of Health website at www.nhlbi.nih.gov/health/educational/lose_wt/BMI/bmicalc.htm. BMI ranges [...] for dessert. Limit deep-fried vegetables, such as south korean fries. + Choose lean protein, such as [...] that works best for you. + For [facility], call [phone]. + For [facility] locations, call [phone]. + For [facility] and [facility], call [phone]. + For [facility] and [facility], call [phone]. + For [facility], call [phone]. (12/2018) [facility] documented in this encounter Progress Notes * [...] Info) Description 05/26/2024 8:00 AM CDT Telemedicine [address] [address] Maricarmen Reyes DO [address] [facility], [place] [address] 09/26/2024 3:00 PM TYPIST Telemedicine [facility] [address] [facility] [address] [place], [place] [address] Sheela Vazquez PA-C [address] [place], [place] [phone] Scheduled Orders Name Type Priority Associated Diagnoses [...] - 4.50 uIU/mL 05/05/2024 6:53 PM CDT [facility] Blood Venipuncture / Unknown 05/05/2024 2:04 PM CDT 05/05/2024 2:04 PM CDT Maricarmen Reyes DO LAB_1 [facility] [address] [place], [place] [address] [place] [address] * (ABNORMAL) Cholesterol, Total and HDL (05/05/2024 2:04 PM CDT) Cholesterol 299(H) 0 - 199 mg/dL 05/05/2024 6:37 PM CDT [facility] HDL Cholesterol 58 >=40 mg/dL 6:37 PM CDT [facility] Non HDL Chol, Calculated 241(H) <=159 mg/dL 05/05/2024 6:37 PM CDT [facility] Blood Venipuncture / Unknown 05/05/2024 2:04 PM CDT 05/05/2024 2:04 PM CDT Maricarmen Reyes DO LAB_1 Performing Organization Address [facility] Co de Phone Number [facility] [address] * (ABNORMAL) LDL Cholesterol, Direct Measured (05/05/2024 2:04 PM CDT) LDL, Direct 237(H) <=130 mg/dL 05/05/2024 6:52 PM CDT [facility] Blood Venipuncture / Unknown 05/05/2024 2:04 PM CDT 05/05/2024 2:04 PM CDT Maricarmen Reyes DO LAB_1 Performing Organization Address [facility] Phone Number [facility] [address] * (ABNORMAL) Electrolyte Panel (05/05/2024 2:04 PM CDT) Sodium 133(L) 136 - 145 mmol/L 05/05/2024 6:37 PM CDT [facility] Potassium 3.7 3.5 - 5.1 mmol/L 05/05/2024 6:37 PM CDT [facility] Chloride 99 98 - 109 mmol/L 05/05/2024 6:37 PM CDT [facility] CO2 20 20 - 29 mmol/L 05/05/2024 6:37 PM CDT [facility] Anion Gap 14 6 - 16 mmol/L 05/05/2024 6:37 PM CDT [facility] Blood Venipuncture / Unknown 05/05/2024 2:04 PM CDT 05/05/2024 2:04 PM CDT Maricarmen Reyes DO LAB_1 Performing Organization Address [facility] Co de Phone Number [facility] [place] * (ABNORMAL) Creatinine / GFR (05/05/2024 2:04 PM CDT) Creatinine 1.03(H) 0.55 - 1.02 mg/dL 05/05/2024 6:37 PM CDT [facility] GFR, Estimated >60 >60 mL/min/1.7 3m2 05/05/2024 6:37 PM CDT [facility] Blood Venipuncture / Unknown 05/05/2024 2:04 PM CDT 05/05/2024 2:04 PM CDT Maricarmen Reyes DO LAB_1 Performing Organization Address City/[facility]/ZIP Co de Phone Number [facility] [address] * (ABNORMAL) Hgb A1C (05/05/2024 2:04 PM CDT) Hemoglobin A1C 5.8(H) <=5.6 % 05/06/2024 9:56 AM CDT [facility] Estimated Average Glucose (Calc) 120 < 117 mg/dL 05/06/2024 9:56 AM CDT [facility] Comment:Estimated average gl ucose (eAG) converts A1c into glucose units (mg/dL) and estimates average glucose over the past approximately 3 months. The eAG reference interval (<117 mg/dL) corresponds to an A1c of <5.7%. Blood Venipuncture / Unknown 05/05/2024 2:04 PM CDT 05/05/2024 2:04 PM CDT Narrative [facility] - 05/06/2024 9:56 AM CDT For patients not previously diagnosed with diabetes: 5.7-6.4%: Increased risk for diabetes 6.5% and greater: Diagnostic for diabetes For patients diagnosed with diabetes: <8.0%: Goal of therapy for ages 18-75 Clinicians may recommend a higher or lower goal for specific individuals. Maricarmen Reyes DO LAB_1 [facility] [address] [place] [id number] documented in this encounter Visit Diagnoses Diagnosis [...] venom documented in this encounter Care Teams Test Desk Trouble Locator Relationship Specialty Start Date End Date Maricarmen Reyes DO [address] [place] [address] PCP - General Family Practice 06/04/23 documented as of this encounter
--- OUTSIDE RECORDS SUMMARY | 2024-05-22 13:22 | XMS_ITS | Encounter Summary ---
Author Organization [facility] Address [address] [place] [address] Care Team Providers Care Photographer Assistant Name Role Phone Maricarmen Simms DO Primary Care Provider [phone] Reason for Visit * Reason Comments Medication Questions Entered automatical ly based on patient selection in [employer]. Encounter Details Date Type Department Care Team ([facility] Contact Info) Description 05/05/2024 10:00 AM CDT E-Visit [address] [address] Maricarmen Simms DO [address] [place] [id number] Chief Comp: Medication Questions Social History Tobacco [...] Upcoming Encounters Date Type Department Care Team ([facility] Contact Info) Description 05/26/2024 8:00 AM CDT Telemedicine [address] [address] Maricarmen Simms DO [address] [facility] [place] [address] 09/26/2024 3:00 PM CADDY MASTER Telemedicine [facility] [address] [facility] [address] [place], [place] [address] Sheela Vazquez PA-C [address] [place], [place] [address] documented as of this encounter Visit Diagnoses Not on filedocumented in this encounter Care Teams Photographer Assistant Relationship Specialty Start Date End Date Maricarmen Simms DO [address] [facility] [place] [address] PCP - General Family Practice 06/04/23 documented as of this encounter
--- OUTSIDE RECORDS SUMMARY | 2024-05-22 13:22 | XMS_ITS | Clinical Summary ---
Author Organization [facility] Address [address] [place] [address] Care Team Providers Care Industrial Therapist Name Role Phone MendezMaricarmen DO Primary Care Provider + [phone] Source Comments You are receiving this document as you are listed as the primary care provider,follow-up provider, or the patient has been referred to you for consultation.This is in compliance with the Medicare and[facility] EHR Incentive Program,which states Providers who transition their patient to another setting of careor provider of care or refers their patient to another provider of care shouldprovide summary care record for each transition of care or referral. [employer] Allergies Active Allergy Reactions Criticality Noted Date [...] Description 05/05/2024 2:50 PM CDT Lab Visit [address] [place] [address] Health examination in population survey (Primary Dx); Pre-diabetes; Encounter for long-term (current) use of medications; Essential hypertension (HRC); Screening cholesterol level; Abnormal uterine bleeding (AUB) 05/05/2024 1:30 PM CDT Office Visit [facility] [address] [place] [address] Maricarmen Simms DO Essential hypertension (HRC) (Primary Dx); Screening for colon cancer; Encounter for screening mammogram for malignant neoplasm of breast; Pre-diabetes; Encounter for long-term (current) use of medications; Morbid obesity with BMI of 40.0-44.9, adult (HRC); Anxiety (HRC); Seasonal allergies; Screening cholesterol level; Mild persistent asthma without complication (HRC); Abnormal uterine bleeding (AUB); Bee sting allergy 05/05/2024 10:00 AM CDT E-Visit [facility] [address] [place] [address] Maricarmen Simms DO Chief Comp: Medication Questions 05/01/2024 Refill [facility] [address] [place] [address] Maricarmen Simms DO Refill (chlorthalidone (HYGROTON) 25 MG tablet [Pharmacy Med Name: CHLORTHALIDONE 25 MG TABLET]) 04/22/2024 1:45 PM CDT E-Visit [facility] [address] [facility] [address] [place] [address] Sheela Vazquez PA-C Chief Comp: Medication Questions 04/22/2024 Refill [facility] [address] [facility] [address] [place] [address] Sheela Vazquez PA-C Refill (bupropion) 04/18/2024 Refill [facility] [address] [facility] [address] [place] [address] Sheela Vazquez PA-C Refill (Wellbutrin ) 03/20/2024 Refill [facility] [address] [place] [address] Maricarmen Simms DO Refill (fexofenadine (JAYME) 180 MG tablet [Pharmacy Med Name: FEXOFENADINE HCL 180 MG TABLET]) 03/01/2024 12:40 PM CDT E-Visit [facility] [address] [place] [address] Maricarmen Simms DO Dx: SOB (shortness of breath) from Last 3 Months Immunizations Name Administration Dates Next Due Flu Vac (3+ yrs) 09/24/2010 HepA Adult (19+ yrs) 06/05/2020 HepA-HepB ([place], 18+ yrs) 04/01/2016,01/12/20 13 Influenza IIV4 (Quadrivalent) 0.5mL (92386) 05/17,05/21/2021,06/05/2020 Moderna Monovalent 12+ 06/14/2021,10/12/2020, Pfizer Bivalent [...] ST Respiratory Rate 28 10/09/2023 12:35 PM NUTRITION SERVICES ASSOCIATE Oxygen Saturation 97% 10/09/2023 12:35 PM NUTRITION SERVICES ASSOCIATE Inhaled Oxygen Concentration - - Weight 103.9 kg (229 lb) 05/05/2024 1:24 PM CDT Height 160 cm (5' 3) 05/05/2024 1:24 PM CDT Body Mass Index 40.57 05/05/2024 1:24 PM CDT Plan of Treatment Upcoming Encounters Date Type Department Care Team (Late st Contact Info) Description 05/26/2024 8:00 AM CDT Telemedicine [facility] [address] [place], [place] [address] Maricarmen Simms DO [address] [facility] [place] [address] 09/26/2024 3:00 PM NUTRITION SERVICES ASSOCIATE Telemedicine [facility] [address] [facility] [address] [place], [place] [phone] Sheela Vazquez PA-C [address] [place] [address] Health Maintenance Due Date Last [...] Fit Kit Given 05/05/2024 4:00 PM CDT [facility] Stool Non-blood Collection / Unknown 05/05/2024 2:04 PM CDT 05/05/2024 2:04 PM CDT Maricarmen Simms DO LAB_1 Performing Organization Address City/[facility]/ZIP Co de Phone Number [facility] [address] [place] [address], [place] * (ABNORMAL) LDL Cholesterol, Direct Measured (05/05/2024 2:04 PM CDT) Pathologist [facility] LDL, Direct 237(H) <=130 mg/dL 05/05/2024 6:52 PM CDT [facility] Blood Venipuncture / Unknown 05/05/2024 2:04 PM CDT 05/05/2024 2:04 PM CDT Maricarmen Simms DO LAB_1 [facility] [address] [place], [place] [id number] [place] [address] * (ABNORMAL) Creatinine / GFR (05/05/2024 2:04 PM CDT) Creatinine 1.03(H) 0.55 - 1.02 mg/dL 05/05/2024 6:37 PM CDT [facility] GFR, Estimated >60 >60 mL/min/1.7 3m2 05/05/2024 6:37 PM CDT [facility] Blood Venipuncture / Unknown 05/05/2024 2:04 PM CDT 05/05/2024 2:04 PM CDT Maricarmen Simms DO LAB_1 Performing Organization Address [facility] Co de Phone Number [facility] [address] * TSH (05/05/2024 2:04 PM CDT) TSH, Sensitive 2.26 0.30 - 4.50 uIU/mL 05/05/2024 6:53 PM CDT [facility] Blood Venipuncture / Unknown 05/05/2024 2:04 PM CDT 05/05/2024 2:04 PM CDT Maricarmen Simms DO LAB_1 Performing Organization Address [facility] Phone Number [facility] [address] * (ABNORMAL) Electrolyte Panel (05/05/2024 2:04 PM CDT) Sodium 133(L) 136 - 145 mmol/L 05/05/2024 6:37 PM CDT [facility] Potassium 3.7 3.5 - 5.1 mmol/L 05/05/2024 6:37 PM CDT [facility] Chloride 99 98 - 109 mmol/L 05/05/2024 6:37 PM CDT [facility] CO2 20 20 - 29 mmol/L 05/05/2024 6:37 PM CDT [facility] Anion Gap 14 6 - 16 mmol/L 05/05/2024 6:37 PM CDT [facility] Blood Venipuncture / Unknown 05/05/2024 2:04 PM CDT 05/05/2024 2:04 PM CDT Maricarmen Simms DO LAB_1 Performing Organization Address [facility] Co ma Phone Number [facility] [address] [place] [address] * (ABNORMAL) Cholesterol, Total and HDL (05/05/2024 2:04 PM CDT) Cholesterol 299(H) 0 - 199 mg/dL 05/05/2024 6:37 PM CDT [facility] HDL Cholesterol 58 >=40 mg/dL 6:37 PM CDT [facility] Non HDL Chol, Calculated 241(H) <=159 mg/dL 05/05/2024 6:37 PM CDT [facility] Blood Venipuncture / Unknown 05/05/2024 2:04 PM CDT 05/05/2024 2:04 PM CDT Maricarmen Simms DO LAB_1 [facility] [address] * (ABNORMAL) Hgb A1C (05/05/2024 2:04 PM CDT) Hemoglobin A1C 5.8(H) <=5.6 % 05/06/2024 9:56 AM CDT [facility] Estimated Average Glucose (Calc) 120 < 117 mg/dL 05/06/2024 9:56 AM CDT [facility] Comment:Estimated average gl ucose (eAG) converts A1c into glucose units (mg/dL) and estimates average glucose over the past approximately 3 months. The eAG reference interval (<117 mg/dL) corresponds to an A1c of <5.7%. Blood Venipuncture / Unknown 05/05/2024 2:04 PM CDT 05/05/2024 2:04 PM CDT Narrative [facility] - 05/06/2024 9:56 AM CDT For patients not previously diagnosed with diabetes: 5.7-6.4%: Increased risk for diabetes 6.5% and greater: Diagnostic for diabetes For patients diagnosed with diabetes: <8.0%: Goal of therapy for ages 18-75 Clinicians may recommend a higher or lower goal for specific individuals. Maricarmen Simms DO LAB_1 [facility] [address] [place] [address] * Hepatitis C Antibody, with Reflex (06/03/2022 1:24 PM CDT) Hepatitis C Antibody Negative (Non Reactive) Negative (Non Reactive) 06/03/2022 6:38 PM CDT [facility] [place] [facility] Comment:Antibodies to HCV no t detected. Does not exclude the possiblity of exposure to HCV. Blood Venipuncture / Unknown 06/03/2022 1:24 PM CDT 06/03/2022 1:24 PM CDT Lacey Payne MD LAB_1 Performing Organization Address [facility] Co de Phone Number [facility] [address] [place] [address] * (ABNORMAL) MM Mammogram Screening Bilat W [...] medical imaging exams are released immediately to [facility]. ??You may be viewing this report before [...] PM CDT) Case Report Pap ? Case: [id number] ? Authorizing Provider: ??Omar, Leticia Flores, BUSINESS PROCESS ASSOCIATE, CNM ??Collected: ? 03/28/2021 1535 ? Ordering Location: ? [facility] ?Received: ?03/28/2021 1633 ? Gynecology ? First Screen: ?Benji, Tanisha R, CT ? (ASCP) ? Rescreen: ?Grace Carr CT (ASCP) ? Specimen: ?Pap Test, Routine, Cervix/Endocervix ? 04/10/2021 1:55 PM [facility] Pap Specimen Adequacy Satisfactory for evaluation, endocervical/newman sformation zone component present. 04/10/2021 1:55 PM [facility] Pap Interpretation Negative for intraepithelial lesion or malignancy (NILM). 04/10/2021 1:55 PM [facility] Pap Disclaimer The Pap test is a screening test designed to aid in the detection of cervical cancer and its precursor lesions. It is not a diagnostic procedure and should not be used as the sole means of detecting cervical cancer. Both false-positive and false-negative results may occur. 04/10/2021 1:55 PM [facility] Gross Description The specimen is received in SurePath fixative and properly labeled. 1 Pap-stained SurePath slide is prepared. 04/10/2021 1:55 PM [facility] Embedded Images 1:55 PM [facility] Other Specimen Type ENTIRE ENDOCERVIX / Unknown 03/28/2021 3:35 PM CDT 03/28/2021 4:33 PM CDT Comment:LMP: Patient's last menstrual period was 03/03/2021. Leticia Nelson APRN, CNM LAB PATHOLOGY Performing Organization Address City/State/[facility] Co de Phone Number [address] [address], [facility] [phone] * HIV 1/2 Ag/Ab 4th Generation (06/05/2020 2:03 PM CDT) HIV 1/2 Antigen/Anti body (4th generation) Negative (Non Reactive) Negative (Non Reactive) 06/06/2020 12:09 PM CDT [facility] Comment:HIV-1 p24 Antigen an d HIV-1/HIV-2 Antibody not detected Blood Venipuncture / Unknown 06/05/2020 2:03 PM CDT 06/05/2020 2:03 PM CDT Lacey Payne MD LAB_1 [facility] [address] [phone] from Last 3 Months or Most Recently Relevant to Health Maintenance Care Teams Industrial Therapist Relationship Specialty Start Date End Date Maricarmen Simms DO [address] [place], [place] [phone] PCP - General Family Practice 06/04/23
--- OUTSIDE RECORDS SUMMARY | 2024-05-22 13:22 | XMS_ITS | Encounter Summary ---
Author Organization [facility] Address [address] [place] [address] Care Team Providers Care Nailhead Operator Name Role Phone Yvonne Harris DO Primary Care Provider Reason for Visit * Reason Comments Refill chlorthalidone (HYGR OTON) 25 MG tablet [Pharmacy Med Name: CHLORTHALIDONE 25 MG TABLET] Encounter Details Date Type Department Care Team ([facility] st Contact Info) Description 05/01/[address] [phone] Yvonne Harris DO [address] [place], [place] [address] Refill (chlorthalidone (HYGROTON) 25 MG tablet [Pharmacy [...] [facility] [address] [place] [address] Yvonne Harris DO [address] [place], [place] [address] 09/26/2024 3:00 PM PIER RUNNER Telemedicine [facility] [address] [facility] [address] [place], [place] [address] Sheela Vazquez PA-C [address] [place], [place] [phone] documented as of this encounter Visit Diagnoses Diagnosis Essential hypertension (HRC) Unspecified essential hypertension documented in this encounter Care Teams Nailhead Operator Relationship Specialty Start Date End Date Yvonne Harris DO [address] [place] [address] PCP - General Family Practice 06/04/23 documented as of this encounter
[2024-05-22] MEDS: HYDROmorphone 0.5 mg/0.5 ml inj IVP (13:44)
--- NOTE | 2024-05-23 08:33 | P.ORCN_ITS ---
History of Present Illness HPI Date Seen: 05/22/24 Consult date: 05/22/24 Chief complaint: ankle injury Narrative: Orthopedics consulted for patient with right ankle fracture dislocation. We were consulted the private detective of 05/22/2024 regarding this fracture. Patient reports trying to get into bed, tripping, and falling rolling her right ankle. She then proceeded to step on the ankle a few more times and felt immediate sharp pain through the ankle. Right ankle deformity noted. Patient notes that she was drinking alcohol night of injury. Presented to [facility] ER where x-rays of the right ankle showed right ankle fracture dislocation. The ER attempted to close reduce the right ankle under conscious sedation. Improvements were made on overall deformity and skin tension on the medial ankle, but ankle was still not reduced. Unfortunately after initial reductions in splinting, patient was unsteady on her crutches stepping fully on this right leg causing redislocation. Attempts were made again to reduce the ankle in the ER as well as splinting. After further orthopedic review of the right ankle radiographs, it was determined to repeat ankle reduction in the ED. Patient reports that since initial ER visit, while staying at her mother's home in [place], she has had right ankle pain trying to treat with ibuprofen without great success. She took her morning medications which include lisinopril, chlorthalidone, bupropion, sertraline with a small amount of food. After this, she vomited food and medications. She has had some small sips of water since. Having difficulty with crutches. It seems the walker with nonweightbearing on the right lower extremity is the most effective mode of ambulation. Review of Systems Narrative: No recent fevers, chills, or aches; no numbness or tingling distally. Denies chest pain or shortness of breath. Reports right ankle pain. [facility] Social History Smoking Status: Former smoker What tobacco products do you use: cigarettes Smoking packs per day: 0.25 Smoking cigarettes per day: 5.0 Years smoked: 4 Smoking pack-years: 1.00 Smoking quit date/years: <= 15 years ago Do you use any of these nicotine containing products: None How often do you have a drink containing alcohol: 2-3 times a week How many standard drinks containing alcohol do you have on a typical day: 5 or 6 How often do you have six or more drinks on one occasion: Less than monthly AUDIT-C Alcohol total score: 6 Non-prescribed substance use: denies use service: No Meds Home Medications and Allergies Home Medications ?Medication ?Instructions ?Recorded ?Confirmed ?Type bupropion HCl 150 mg 24 hr tablet, 150 mg PO DAILY 05/22/24 05/22/24 History extended release chlorthalidone 25 mg tablet 25 mg PO DAILY 05/22/24 05/22/24 History lisinopril 10 mg tablet 10 mg PO DAILY 05/22/24 05/22/24 History sertraline 50 mg tablet 50 mg PO DAILY 05/22/24 05/22/24 History Allergies Allergy/AdvReac Type Severity Reaction Status Date / Time Penicillins Allergy Verified 05/22/24 12:52 Sulfa (Sulfonamide Allergy Verified 05/22/24 12:52 Antibiotics) bees Allergy Uncoded 05/21/24 23:59 Ortho Exam Narrative Exam Narrative: General: Well-developed, well-nourished, A&Ox 3, no apparent acute distress. Pulmonary: Breathing pattern regular, even, without apparent distress or audible wheeze present. Right Ankle: Orthoplast splint, stirrup style in place right lower extremity. Splint sits within the arch of the mid foot without coverage over the metacarpal heads Splint removed, showing moderate swelling of the ankle and foot. There is no obvious skin tenting, but there is tension over the medial ankle with a small 5 mm in diameter ecchymotic region/abrasion without active drainage or bleeding. No obvious ecchymosis. No erythema. Ankle appears to be mildly everted Tender to palpation lateral malleolus and syndesmosis No ankle stability testing or strength testing performed She is grossly tender to palpation along the entire lateral ankle. 2+ DP/PT pulses, pink warm digits with brisk cap refill; intact dermatomes and myotomes distally including the common peroneal, tibial, saphenous, and sural nerve distributions Right ankle pain greatly improved after IV administration of narcotics. Able to remove the splint prior to conscious sedation without significant patient pain. Const Vital Signs, click to edit/add: Vital Signs - 24 hr 05/22/24 12:49 05/22/24 12:49 05/22/24 12:50 Temperature 97 F L Pulse Rate 107 H 109 H Pulse Rate [Right Pulse Oximeter] 107 H Respiratory Rate 18 16 Blood Pressure 147/94 H Blood Pressure [Left Upper Arm] 147/94 H Pulse Oximetry 98 98 98 Oxygen Delivery Method Room Air 05/22/24 13:00 05/22/24 13:15 05/22/24 13:30 Temperature Pulse Rate 102 H 95 92 Pulse Rate [Right Pulse Oximeter] Respiratory Rate 20 18 17 Blood Pressure Blood Pressure [Left Upper Arm] Pulse Oximetry 99 98 98 Oxygen Delivery Method 05/22/24 13:41 05/22/24 13:45 05/22/24 13:47 Temperature Pulse Rate 94 99 93 Pulse Rate [Right Pulse Oximeter] Respiratory Rate 20 20 20 Blood Pressure 142/84 H 140/86 H Blood Pressure [Left Upper Arm] Pulse Oximetry 98 99 100 Oxygen Delivery Method 05/22/24 13:51 05/22/24 13:54 05/22/24 13:56 Temperature Pulse Rate 91 90 92 Pulse Rate [Right Pulse Oximeter] Respiratory Rate 17 11 L 21 Blood Pressure 131/89 115/80 123/95 H Blood Pressure [Left Upper Arm] Pulse Oximetry 98 86 L 100 Oxygen Delivery Method 05/22/24 14:00 05/22/24 14:02 05/22/24 14:06 Temperature Pulse Rate 84 82 85 Pulse Rate [Right Pulse Oximeter] Respiratory Rate 22 22 22 Blood Pressure 85/56 L 112/64 Blood Pressure [Left Upper Arm] Pulse Oximetry 99 100 98 Oxygen Delivery Method 05/22/24 14:11 05/22/24 14:15 05/22/24 14:16 Temperature Pulse Rate 85 85 80 Pulse Rate [Right Pulse Oximeter] Respiratory Rate 23 24 23 Blood Pressure 111/75 127/80 Blood Pressure [Left Upper Arm] Pulse Oximetry 97 99 99 Oxygen Delivery Method 05/22/24 14:21 05/22/24 14:26 05/22/24 14:30 Temperature Pulse Rate 77 77 78 Pulse Rate [Right Pulse Oximeter] Respiratory Rate 23 22 18 Blood Pressure 131/71 119/89 Blood Pressure [Left Upper Arm] Pulse Oximetry 100 99 98 Oxygen Delivery Method 05/22/24 14:31 05/22/24 14:36 05/22/24 14:41 Temperature Pulse Rate 74 78 79 Pulse Rate [Right Pulse Oximeter] Respiratory Rate 17 24 17 Blood Pressure 126/72 129/68 122/70 Blood Pressure [Left Upper Arm] Pulse Oximetry 98 94 94 Oxygen Delivery Method 05/22/24 14:45 05/22/24 14:47 05/22/24 14:52 Temperature Pulse Rate 81 85 82 Pulse Rate [Right Pulse Oximeter] Respiratory Rate 18 17 18 Blood Pressure 121/80 126/75 Blood Pressure [Left Upper Arm] Pulse Oximetry 96 97 94 Oxygen Delivery Method 05/22/24 14:56 05/22/24 15:00 05/22/24 15:01 Temperature Pulse Rate 86 88 85 Pulse Rate [Right Pulse Oximeter] Respiratory Rate 20 16 23 Blood Pressure 125/75 132/75 Blood Pressure [Left Upper Arm] Pulse Oximetry 92 96 96 Oxygen Delivery Method Results Diagnostic results Ankle/Foot x-ray: report reviewed and image reviewed Additional Comments: Initial, pre reduction, AP, lateral views of the right ankle ordered by [facility] dated 05/22/2024. These images were reviewed and corroborated with the radiology report showing lateral malleolus Pa B fracture with tibiotalar joint dislocation, as talus is laterally subluxed. Soft tissue swelling noted. No additional fractures or loose bodies identified. Focal calcifications seen in the medial, and posterior mid lower leg. The largest measures approximately 19 mm in diameter. AP, lateral views of right ankle post initial reduction and splinting ordered by [facility] dated 05/22/2024. These images were reviewed and corroborated with the radiology report showing slightly improved lateral malleolus fracture, and tibiotalar joint dislocation. Laterally subluxed talus. Interval stirrup style splint. AP, lateral views of right ankle post additional reduction and splinting ordered by [facility] dated 05/22/2024. These images were reviewed and corroborated with the radiology report showing again slightly improved fracture dislocation reduction, yet still noted cartilage pressure on the lateral distal tibia and mid to medial talus. Laterally subluxed talus. Interval stirrup style splint. AP, lateral views of the right ankle post reduction and splinting ordered by [facility] dated 05/22/2024 (approximately 1300 hours). These images were reviewed and corroborated with the radiology report showing fully reduced ankle mortise without laterally subluxing talus. AP view shows lateral malleolus fracture that is aligned, though obstructed by plaster splint; lateral view shows gapping at the lateral malleolus oblique fracture. Procedures Orthopedic Fracture Reduction Fracture #1: Time out performed: Yes Side: Right Manipulation performed: Yes Fracture location: ankle Analgesia: procedural sedation Technique: direct manipulation Anesthesia needed: Yes (Propofol sedation provided by ER physician) Post-reduction x-rays demonstrate: anatomical reduction Post-reduction neuro exam: intact Post-reduction vascular exam: intact Splint applied: Yes Patient tolerated procedure: well Orthopedic Joint Reduction Joint #1: Time out performed: Yes Side: right Joint reduction location: ankle Analgesia: procedural sedation Shoulder technique used (if applicable): other Technique used: direct manipulation Post-reduction neuro exam: intact Post-reduction vascular exam: intact Post-reduction x-ray obtained: Yes Post-reduction x-ray results: reduced Splint applied: Yes Patient tolerated procedure: well Assessment and Plan Assessment and plan (1) Closed fracture dislocation of right ankle: Status: Acute Plan We had a thorough discussion regarding pathology. I was able to speak to the patient's on the phone regarding patient's ankle and the recommendation to reduce the ankle once again. I spoke to the patient's since patient's cell phone number in the chart was not correct. Explained how taking pressure off the cartilage would be beneficial for her long-term especially since it will likely be nearly 2 weeks before this ankle is repaired with ORIF. They agree to come back to [facility] ER for right ankle reduction under conscious sedation. After verbal and written consent obtained by patient for right ankle closed reduction with manipulation under conscious sedation via propofol sedation, ER provider provided conscious sedation via propofol while monitoring patient's breathing status/airway and oxygenation. Prior to this, original splint was removed without issues or complications. The ankle was noted to be slightly everted with a small wound over the medial ankle that appeared to be more ecchymotic/abrasion. No obvious open wound. This was likely skin changes from tension due to the dislocated ankle. Once adequate muscle relaxation was obtained, hip and knee were flexed to 90? while traction applied to the great toe. This allowed the tibiotalar joint to reduce. Repeat radiographs via C-arm showed that the fracture was reduced, but the talus was still subluxed laterally. A stirrup plaster splint was applied. Then, while the hip and knee were flexed to 90?, strong mold applied to the ankle, medially directed force over the lateral malleolus/talus with counterforce to the mid tibia. Repeat radiographs showed reduced ankle mortise without increased medial clear space and reduced lateral malleolus fracture. This mold was held until the plaster was fully formed. Patient was awakened from conscious sedation without complications. She was found to have 2+ DP/PT pulses post reduction, brisk cap refill digits, and intact sensation distally. Patient is instructed to be nonweightbearing on the right lower extremity, crutches/walker for assistance. I do not feel that a knee walker will be easy to use at this time. She was also given a prescription for pain medication, and antinausea medicine. Advised that patient have her ankle reassessed regarding skin and soft tissues within 7-10 days. Ideally, wait to pursue right ankle ORIF until skin/soft tissues are amenable to suture closure. We are happy to treat patient through our Orthopedic Service. However, I understand that patient's insurance may dictate where she has this ankle fixed. All questions from patient and family were answered. Thank you for allowing me to participate in the patient's care.
== END 2024-05-22 15:29 | disposition home or self-care (01) ==
PROVIDERS: Emergency Provider Student in an Organized Health Care Education/Training Program
DX: S82.401A Unspecified fracture of shaft of right fibula, initial encounter for closed fracture (principal); S93.04XA Dislocation of right ankle joint, initial encounter; F10.129 Alcohol abuse with intoxication, unspecified; W19.XXXA Unspecified fall, initial encounter
CPT/HCPCS: 73600; 76000; 99283; J1171; J2405

== ENCOUNTER 2024-06-06 11:01 | Day surgery (SDC) | payer OTHER, SELFPAY ==
[2024-06-06] VITALS (10 sets, daily range): BP systolic 127–155; BP diastolic 87–105; PULSE 76–99; RESP 18–20; TEMP 36.8–37; O2SAT 94–98; BMI 40.7
--- OUTSIDE RECORDS SUMMARY | 2024-06-06 11:05 | XMS_ITS | Encounter Summary ---
Author Organization [facility] Address [address] [place] [address] Care Team Providers Care Logging Rafter Laborer Name Role Phone MendezMaricarmen DO Primary Care Provider Reason for Visit * Reason Comments Preop Exam Encounter Details Date Type Department Care Team (Latest Contact Info) Description 06/03/2024 2:00 PM CDT Pre-Op Visit [facility] [address] [place] [address] Beth Butler MD [address] [place], [place] [phone] Preop examination (Primary Dx); Essential hypertension (HRC); Mixed hyperlipidemia (HRC); Mild persistent asthma without complication (HRC); Elevated serum creatinine; Hyponatremia Social History Tobacco Use Types Packs/Day Years Used Date Smoking Tobacco: Former Cigarettes Q uit: 01/05/1998 Passive Smoke Exposure: Past Smokeless Tobacco: Never Tobacco Cessation:Counseling Given: Not Answered Comments:I was a social smoker Alcohol Use Standard Drinks/Week Comments Yes 11 (1 standard drink = 0.6 oz pu re alcohol) Social drinker,wine PHQ-2 Answer Date Recorded PHQ-2 Score 0 06/03/2024 Sex and Gender Information Value Date Recorded Sex Assigned at Not on file Gender Identity Not on file Sexual Orientation Not on file documented as of this encounter Last Filed Vital Signs Vital Sign Reading Time Taken Comments Blood Pressure 106/78 06/03/2024 2:04 PM CDT Pulse 115 06/03/2024 1:24 PM CDT Temperature - - Respiratory Rate - - Oxygen Saturation - - Inhaled Oxygen Concentration - - Weight 104.3 kg (230 lb) 06/03/2024 1:2 4 PM CDT PT REPORTED. Pt is in wheelchair today. Height 160 cm (5' 2.99) 06/03/2024 1:2 4 PM CDT Body Mass Index 40.75 06/03/2024 1:24 PM CDT documented in this encounter Patient Instructions * Patient Instructions* Beth Butler MD - 06/03/2024 2:00 PM CDT lisinopril (ZESTRIL) 20 MG tablet [[id number]] - Do not take within 24 hours of procedure. chlorthalidone (HYGROTON) 25 MG tablet [[id number]] - Do not take on the morning of procedure. naltrexone (REVIA) 50 MG tablet [[id number]] - Stop naltrexone 3 days prior to your procedure. Follow your individualized medication recommendations as described above. In addition, please stop all ppac-slg-sgfpnys medications including aspirin, ibuprofen (Advil, Motrin), naproxen (Aleve, Naprosyn), herbal remedies and supplements one week prior to procedure unless directed otherwise by your care team. You may continue to take acetaminophen (Tylenol) up to the dayof your procedure. Continue all other medications as currently taking. Let your care team know if you have questions. On the day of your procedure, do not wear any hair product including hair sprays and gels and avoidusing body sprays and deodorants/antiperspirants. Bring with you to the site of the procedure: Any oral appliances or CPAP equipment related to sleep apnea Any other health-related equipment or devices you use daily documented in this encounter Progress Notes * Beth Butler MD - 06/03/2024 2:00 PM CDT Pre-Operative Assessment 06/03/2024 ET Amb PreOp Assessment Details Procedure R Ankle- Getting pin put into the fibia. Surgeon Dr. Tony Cardona Location Other Other Location Name [place], [place] Procedure Date 06/06/2024 Fax Number [phone] Bettie Abarca is a 48 y.o. old female here for pre-operative evaluation for procedure noted above. 05/21/24 fractured her ankle, fell after going to bed. Does endorse alcohol use after a celebration prior to that fall. Tripped and fell awkwardly. In the ER, she realized her BENNIE was quite elevated so she realized her alcohol use may have been higher than she thought. She reports that she has not had alcohol use since. Nonsmoker Uses a walker to get around at home currently Hx asthma, uses her inhaler BID No recent shortness of breath No chest pain or pressure with exertion BP controlled, on chorthalidone and lisinopril. Thinks the chlorthalidone may dehydrate her; she was placed on it d/t swelling Previously on Wellbutrin and naltrexone for weight loss, still taking Wellbutrin but stopped naltrexone in February Patient Active Problem List Diagnosis Date Noted Mixed hyperlipidemia ([facility]) 05/11/2024 Seasonal allergies 05/05/2024 Mild persistent asthma without complication ([facility]) 05/05/2024 Bee sting allergy 05/05/2024 SOB (shortness of breath) 06/04/2023 Fatty liver ([facility]) 02/04/2023 Elevated serum creatinine 12/08/2017 Essential hypertension ([facility]) 11/14/2016 Anxiety ([facility]) 04/28/2012 Past Medical History: Diagnosis Date Asthma ([facility]) 2013 BP (high blood pressure) ([facility]) REVIEWED-NONE NOTED Past Surgical History: Procedure Laterality Date SURGICAL HX - NEG Current Outpatient Medications Medication Instructions ALBUterol sulfate HFA 108 (90 Base) MCG/ACT inhaler 1-2 Puffs, Inhalation, Q4H PRN atorvastatin (LIPITOR) 20 mg, Oral, DAILY buPROPion (WELLBUTRIN XL) 150 mg, Oral, DAILY chlorthalidone (HYGROTON) 25 mg, Oral, DAILY EPINEPHrine (EPIPEN) 0.3 mg, Intramuscular, PRN, May repeat. fexofenadine (JAYME) 180 mg, Oral, DAILY fluticasone propionate (FLONASE) 50 MCG/ACT nasal solution 2 Sprays, Both Nostrils, DAILY lisinopril (ZESTRIL) 20 mg, Oral, DAILY mometasone (ASMANEX HFA) 100 MCG/ACT inhaler 2 Puffs, Inhalation, BID, Rinse mouth/gargle after use. naltrexone (REVIA) 50 mg, Oral, DAILY sertraline (ZOLOFT) 50 mg, Oral, DAILY Allergies Allergen Reactions Bee Venom Other, see comments Pcn [Penicillins] Rash Sulfa Antibiotics Rash Social History Occupational History Occupation: teacher Comment: teaches ESL Tobacco Use Smoking status: Former Current packs/day: 0.00 Types: Cigarettes Quit date: 01/05/1998 Years since quittin.4 Passive exposure: Past Smokeless tobacco: Never Tobacco comments: I was a social smoker Vaping Use Vaping status: Never Used Substance and Sexual Activity Alcohol use: Yes Alcohol/week: 11.0 - 20.0 standard drinks of alcohol Types: 10 Shots of liquor, 1 - 10 Standard drinks or equivalent per week Comment: Social drinker,wine Drug use: No Sexual activity: Yes Partners: Female Patient's last menstrual period was 05/23/2024 (approximate). Family History Problem Relation Name Age of Onset Cancer, Melanoma Mother Sherron Hypertension Mother Sherron Hyperlipidemia Mother Sherron Cancer Mother Sherron High Cholesterol Mother Sherron Hypertension Father Hyperlipidemia Father Other (Tachycardia) Father Hypertension Brother Edward High Cholesterol Brother Edward Hyperlipidemia Brother Deward Asthma Paternal Grandfather Vicente Myocardial Infarction Paternal Grandfather Vicente Cancer, Lung Paternal Grandmother Hypertension Maternal Grandmother Fern Depression Maternal Grandmother Fern Coronary Artery Disease Maternal Grandfather Myocardial Infarction Maternal Aunt ADHD Negative Family History Alcohol/Drug Abuse Negative Family History Amblyopia/Strabismus Negative Family History Anesthesia Reaction Negative Family History Anxiety Negative Family History Bipolar Disorder Negative Family History Bleeding Disorder Negative Family History Blindness Negative Family History Cancer, Bone Negative Family History Cancer, Colon Negative Family History Cancer, Other Negative Family History Cancer, Prostate Negative Family History Cataract Negative Family History Celiac Disease Negative Family History Cerebrovascular Disease Negative Family History COPD Negative Family History Cystic Fibrosis Negative Family History Deafness Negative Family History Dementia Negative Family History Diabetes, Type II Negative Family History Domestic Violence Negative Family History Eczema Negative Family History Emphysema Negative Family History Enuresis Negative Family History Glaucoma Negative Family History Genetic Disorder Negative Family History Inflammatory Bowel Disease Negative [...] Family History Vesicoureteral Reflux Negative Family History Review of Systems: 06/03/2024 ET Amb PreOp Assessment Sx Have you had a heart attack in the last 30 days? No Have you experienced chest tightening or chest pressure with activity? No Do you wake at night with difficulty breathing? No Do you have swelling in your feet or ankles? Yes Do you get short of breath if lying flat at night? No Do you hear wheezing or whistling when you breathe? No Have you had a cough, runny nose, or cold symptoms in the last 2 weeks? No Have you tested positive for Covid in the last 6 months? No Do you have a long-standing cough? No Do you snore or are you sleepy during the day? No Do you have any symptoms due to a recent concussion? No Do you or close relatives have bleeding or clotting problems? No Have you taken Aspirin, Ibuprofen (Advil) or Naproxen (Aleve) in the last 7 days? No Do you or close relatives have a history of a severe or life-threatening reaction to anesthesia? No Estimated Functional Capacity: Can you climb one flight of stairs, or walk up a gradual uphill without stopping? yes, functional capacity is more than or equal to 4 METS Objective BP 106/78 Pulse (!) 115 Ht 1.6 m (5' 2.99) Wt 104.3 kg (230 lb) Comment: PT REPORTED. Pt is in wheelchair today. LMP 05/23/2024 (Approximate) BMI 40.75 kg/m?? Physical Exam: General Appearance: alert, well appearing, and in no apparent distress HEENT: lids normal, sclera clear, and conjunctiva normal, oropharynx clear Neck: no lymphadenopathy and no thyromegaly or nodules Heart: regular rate and rhythm and no murmurs, gallops or rubs Lungs: clear to auscultation and no wheezes, rales or rhonchi; normal work of breathing Abdomen: soft, nondistended, nontender, and no palpable masses Extremities: no edema Skin: no rashes or worrisome lesions Neurologic: normal speech, no facial droop, alert and oriented, and normal gait Psych: affect appropriate, cooperative Data: Labs: Yes: Sodium Date Value Ref Range Status 05/05/2024 133 (L) 136 - 145 mmol/L Final Potassium Date Value Ref Range Status 05/05/2024 3.7 3.5 - 5.1 mmol/L Final Creatinine Date Value Ref Range Status 05/05/2024 1.03 (H) 0.55 - 1.02 mg/dL Final Hemoglobin Date Value Ref Range Status 06/03/2024 15.2 12.0 - 15.5 g/dL Final Hemoglobin A1C Date Value Ref Range Status 05/05/2024 5.8 (H) <=5.6 % Final Glucose Date Value Ref Range Status 02/04/2023 155 (H) 70 - 100 mg/dL Final Comment: The given reference range is for the fasting state. Non-fasting reference range for glucose is 70 -180 mg/dL. ECG: Yes: date and results: 06/03/24. NSR, no obvious ST/T wave abnormalities although limited assessment d/t artifact (difficulty positioning patient given using wheelchair). Assessment/Plan Patient is medically optimized for planned procedure(s) assuming pended studies are acceptable. Pending studies at time of signing note are Cr/eGFR and Na. Will notify surgery center if these values return outside of acceptable range and further action is needed. ICD-10-CM 1. Preop examination Z01.818 ECG 12 Lead (Clinical Seed Pelleter to perform) Hemoglobin, Blood Creatinine / GFR Sodium CANCELED: Complete Blood Count-No Diff 2. Essential hypertension (HRC) I10 3. Mixed hyperlipidemia (HRC) E78.2 4. Mild persistent asthma without complication (HRC) J45.30 5. Elevated serum creatinine R79.89 6. Hyponatremia E87.1 Special risks: Recommend caution with nephrotoxic medications and careful monitoring of fluid status perioperatively. Medication recommendations: Patient Instructions lisinopril (ZESTRIL) 20 MG tablet [[id number]] - Do not take within 24 hours of procedure. chlorthalidone (HYGROTON) 25 MG tablet [[id number]] - Do not take on the morning of procedure. naltrexone (REVIA) 50 MG tablet [[id number]] - Stop naltrexone 3 days prior to your procedure. Follow your individualized medication recommendations as described above. In addition, please stop all onbx-blo-hzyprlv medications including aspirin, ibuprofen (Advil, Motrin), naproxen (Aleve, Naprosyn), herbal remedies and supplements one week prior to procedure unless directed otherwise by your care team. You may continue to take acetaminophen (Tylenol) up to the dayof your procedure. Continue all other medications as currently taking. Let your care team know if you have questions. On the day of your procedure, do not wear any hair product including hair sprays and gels and avoidusing body sprays and deodorants/antiperspirants. Bring with you to the site of the procedure: Any oral appliances or CPAP equipment related to sleep apnea Any other health-related equipment or devices you use daily Electronically signed by: Beth Butler MD 06/03/2024, 4:30 PM documented in this encounter Plan of Treatment Upcoming Encounters Date Type Department Care Team (Late st Contact Info) Description 06/09/2024 9:00 AM CDT Telemedicine [facility] [address] [place], [place] [phone] Maricarmen Simms DO [address] [facility], [place] [address] 09/26/2024 3:00 PM CREDIT CONTROLLER Telemedicine [facility] [address] [facility] [address] [place], [place] [address] Sheela Vazquez PA-C [address] [place], [place] [address] documented as of this encounter Procedures Procedure Name Priority Date/Time Associated Diagnosis Comments ECG 12 LEAD OUTPATIENT Routine 06/03/2024 2:16 PM CDT Preop examination documented in this encounter Results * (ABNORMAL) Sodium (06/03/2024 2:24 PM CDT) Sodium 135(L) 136 - 145 mmol/L 06/03/2024 5:54 PM CDT [facility] Blood Venipuncture / Unknown 06/03/2024 2:24 PM CDT 06/03/2024 2:24 PM CDT Beth Butler MD LAB_1 Performing Organization Address [facility] Co de Phone Number [facility] [address] [place] [address] * (ABNORMAL) Creatinine / GFR (06/03/2024 2:24 PM CDT) Creatinine 1.05(H) 0.55 - 1.02 mg/dL 06/03/2024 5:54 PM CDT [facility] GFR, Estimated >60 >60 mL/min/1.7 3m2 06/03/2024 5:54 PM CDT [facility] Blood Venipuncture / Unknown 06/03/2024 2:24 PM CDT 06/03/2024 2:24 PM CDT Beth Butler MD LAB_1 Performing Organization Address [facility] Phone Number [facility] [address] [place] [id number] [place] [address] * Hemoglobin, Blood (06/03/2024 2:24 PM CDT) Hemoglobin 15.2 12.0 - 15.5 g/dL 06/03/2024 2:27 PM CDT [facility] Blood Venipuncture / Unknown 06/03/2024 2:24 PM CDT 06/03/2024 2:24 PM CDT Beth Butler MD LAB_1 Performing Organization Address [facility] Co de Phone Number [facility] [address] [place] [address], [place] * ECG 12 Lead (Clinical Seed Pelleter to perform) (06/03/2024 2:16 PM CDT) Ventricular Rate 105 BPM MUSE [facility] Atrial Rate 105 BPM [facility]USE [facility] P-R Interval 148 ms MUSE GHP QRS Duration 66 ms MUSE GHP QT 370 ms MUSE GHP QTc 489 ms MUSE GHP P [place] 31 degrees MUSE GHP R [place] 24 degrees MUSE GHP T [place] 32 degrees MUSE GHP 06/03/2024 2:16 PM CDT Narrative [facility] - 06/03/2024 7:36 PM CDT Poor data quality, interpretation may be adversely affected Sinus tachycardia Nonspecific ST and T wave abnormality (ST-T waves could not be assessed with baseline artifacts) Abnormal ECG When compared with ECG of 04-FEB-2023 09:08, No significant change Confirmed by Garcia Burt ([id number]) on 06/03/2024 7:36:36 PM Procedure Note Garcia Burt MD - 06/03/2024 Poor data quality, interpretation may be adversely affected Sinus tachycardia Nonspecific ST and T wave abnormality (ST-T waves could not be assessedwith baseline artifacts) Abnormal ECG When compared with ECG of 04-FEB-2023 09:08, No significant change Confirmed by Garcia Burt ([id number]) on 06/03/2024 7:36:36 PM Beth Butler MD PN ECG ORDERABLES [facility] [address] [place] [address] documented in this encounter Visit Diagnoses Diagnosis Preop examination- Primary Preoperative examination, unspecified Essential hypertension (HRC) Unspecified essential hypertension Mixed hyperlipidemia (HRC) Mixed hyperlipidemia Mild persistent asthma without complication (HRC) Unspecified asthma Elevated serum creatinine Other nonspecific findings on examination of blood Hyponatremia Hyposmolality and/or hyponatremia documented in this encounter Care Teams Logging Rafter Laborer Relationship Specialty Start Date End Date Maricarmen Simms [place] [address] PCP - General Family Practice 06/04/23 documented as of this encounter
--- OUTSIDE RECORDS SUMMARY | 2024-06-06 11:05 | XMS_ITS | Encounter Summary ---
Author Organization [facility] Address [address] [place] [address] Care Team Providers Care Slag Wheeler Name Role Phone Maricarmen Simms DO Primary Care Provider [phone] Reason for Visit * Reason Onset Date Comments Video Visit 05/26/2024 No Show 05/26/2024 Encounter Details Date Type Department Care Team (Latest Contact Info) Description 05/26/2024 8:00 AM CDT Telemedicine [address] [id number] Maricarmen Simms DO [address] [place], [place] [phone] Encounters for administrative purposes (Primary Dx) Social History Tobacco Use Types Packs/Day Years [...] on file documented as of this encounter Progress Notes * Maricarmen Simms DO - 05/26/2024 8:00 AM CDT Patient was called/texted 2 times and was unable to be reached to complete their video/phone visit. documented in this encounter Plan of Treatment Upcoming Encounters Date Type Department Care Team (Late st Contact Info) Description 06/09/2024 9:00 AM CDT Telemedicine [facility] [address] [place] [address] Maricarmen Simms DO [address] [facility] [place] [address] 09/26/2024 3:00 PM ASSEMBLER KNIFE Telemedicine [facility] [address] [facility] [address] [place], [place] [address] Sheela Vazquez PA-C [address] [place], [place] [address] documented as of this encounter Visit Diagnoses Diagnosis Encounters for administrative purposes- Primary Encounters for unspecified administrative purpose documented in this encounter Care Teams Slag Wheeler Relationship Specialty Start Date End Date Maricarmen Simms DO [address] [place], [place] [address] PCP - General Family Practice 06/04/23 documented as of this encounter
--- OUTSIDE RECORDS SUMMARY | 2024-06-06 11:05 | XMS_ITS | Encounter Summary ---
Author Organization [facility] Address [address], [place] [address] Care Team Providers Care Jigsaw Operator Name Role Phone Maricarmen Simms DO Primary Care Provider Encounter Details Date Type Department Care Team (Late Contact Info) Description 06/03/2024 2:30 PM CDT Lab Visit [facility] [address] [facility] [address] [place], [place] [phone] Preop examination Social History Tobacco Use Types Packs/Day Years Used Date Smoking Tobacco: Former Cigarettes Q uit: 01/05/1998 Passive Smoke Exposure: Past Smokeless Tobacco: Never Comments:I was a social smok er Alcohol Use Standard Drinks/Week Comments Yes 11 [...] Department Care Team (Late Contact Info) Description 06/09/2024 9:00 AM CDT Telemedicine [facility] [address] [place] [address] Maricarmen Simms DO [address] [place] [address] 09/26/2024 3:00 PM PRECAST WORKER Telemedicine [facility] [address] [facility] [address] [place] [address] Sheela Vazquez PA-C [address] [place], [place] [address] documented as of this encounter Procedures Procedure Name Priority Date/Time Associated Diagnosis Comments CREATININE / GFR Routine 06/03/2024 2:24 PM CDT Preop examination HEMOGLOBIN, BLOOD Routine 06/03/2024 2:2 4 PM CDT Preop examination SODIUM Routine 06/03/2024 2:24 PM CDT Preop examination documented in this encounter Results * (ABNORMAL) Sodium (06/03/2024 2:24 PM CDT) Sodium 135(L) 136 - 145 mmol/L 06/03/2024 5:54 PM CDT [facility] Blood Venipuncture / Unknown 06/03/2024 2:24 PM CDT 06/03/2024 2:24 PM CDT Beth Butler MD LAB_1 Performing Organization Address [facility] Co de Phone Number [facility] [address] * (ABNORMAL) Creatinine / GFR (06/03/2024 2:24 PM CDT) Creatinine 1.05(H) 0.55 - 1.02 mg/dL 06/03/2024 5:54 PM CDT [facility] GFR, Estimated >60 >60 mL/min/1.7 3m2 06/03/2024 5:54 PM CDT [facility] Blood Venipuncture / Unknown 06/03/2024 2:24 PM CDT 06/03/2024 2:24 PM CDT Beth Butler MD LAB_1 [facility] [address] [place] [address], [facility] * Hemoglobin, Blood (06/03/2024 2:24 PM CDT) Hemoglobin 15.2 12.0 - 15.5 g/dL 06/03/2024 2:27 PM CDT [facility] Blood Venipuncture / Unknown 06/03/2024 2:24 PM CDT 06/03/2024 2:24 PM CDT Beth Butler MD LAB_1 [facility] [address] [place] [address], [facility] documented in this encounter Visit Diagnoses Diagnosis Preop examination Preoperative examination, unspecified documented in this encounter Care Teams Jigsaw Operator Relationship Specialty Start Date End Date Maricarmen Simms DO [address] [place] [address] PCP - General Family Practice 06/04/23 documented as of this encounter
--- OUTSIDE RECORDS SUMMARY | 2024-06-06 11:05 | XMS_ITS | Clinical Summary ---
Author Organization Formerly [facility], later [facility] Address [address], [place] [address] Care Team Providers Care Net Lead Developer Name Role Phone Maricarmen Simms DO Primary Care Provider + [phone] Source Comments You are receiving this document as you are listed as the primary care provider,follow-up provider, or the patient has been referred to you for consultation.This is in compliance with the Medicare and[facility] EHR Incentive Program,which states Providers who transition their patient to another setting of careor provider of care or refers their patient to another provider of care shouldprovide summary care record for each transition of care or referral. [employer] Allergies Active Allergy Reactions Criticality Noted Date Comments Bee Venom Other, see comments 05/05/2024 Penicillins Rash 09/24/2010 Sulfa Antibiotics Rash 09/24/2010 Medications Medication Sig Dispensed Refills Start Date End Date Status naltrexone (REVIA) 50 MG tabletIndications:M orbid obesity with BMI of 40.0-44.9, adult (HRC) Take 1 Tablet (50 mg) by mouth daily. 90 Tablet 1 09/22/2023 Active buPROPion (WELLBUTRIN XL) 150 MG 24 hour release tabletIndications:M orbid obesity with BMI of 40.0-44.9, adult (HRC) Take 1 Tablet (150 mg) by mouth daily. 90 Tablet 1 04/22/2024 Active chlorthalidone (HYGROTON) 25 MG tabletIndications:E ssential hypertension (HRC) Take 1 Tablet (25 mg) by mouth daily. 90 Tablet 3 05/05/2024 Active sertraline (ZOLOFT) 50 MG tabletIndications:A nxiety (HRC) Take 1 Tablet (50 mg) by mouth daily. 90 Tablet 3 05/05/2024 Active mometasone (ASMANEX HFA) 100 MCG/ACT inhalerIndications: Mild persistent asthma without complication (HRC) Inhale 2 Puffs two times a day. Rinse mouth/gargle after use. 39 g 3 05/05/2024 5 Active lisinopril (ZESTRIL) 20 MG tabletIndications:E ssential hypertension (HRC) Take 1 Tablet (20 mg) by mouth daily. 90 Tablet 3 05/05/2024 5 Active fexofenadine (JAYME) 180 MG tabletIndications:S easonal allergies Take 1 Tablet (180 mg) by mouth daily. 90 Tablet 3 05/05/2024 Active fluticasone propionate (FLONASE) 50 MCG/ACT nasal solutionIndications :Seasonal allergies Place 2 Sprays into both nostrils daily. 16 mL 3 05/05/2024 Active ALBUterol sulfate HFA 108 (90 Base) MCG/ACT inhalerIndications: Mild persistent asthma without complication (HRC) Inhale 1-2 Puffs every 4 hours as needed for Wheezing. 18 g 2 05/05/2024 Active EPINEPHrine (EPIPEN) 0.3 MG/0.3ML injectionIndication s:Bee sting allergy Inject 0.3 mL (0.3 mg) intramuscularly as needed. May repeat. 2 Each 11 05/05/2024 Active atorvastatin (LIPITOR) 20 MG tabletIndications:M ixed hyperlipidemia (HRC) Take 1 Tablet (20 mg) by mouth daily. 90 Tablet 3 05/26/2024 5 Active Active Problems Problem Noted Date Diagnosed Date [...] 03/12/2017 Localized superficial swelling, mass, or lump 04/28/20 12 09/01/2017 Overview (04/28/2012): R lateral thigh Encounters Date Type Department Care Team Description 06/03/2024 2:30 PM CDT Lab Visit [facility] [address] [place] [place] [address] Preop examination 06/03/2024 2:00 PM CDT Pre-Op Visit [facility] [address] [place] [address] [place] [address] Beth Butler MD Preop examination (Primary Dx); Essential hypertension (HRC); Mixed hyperlipidemia (HRC); Mild persistent asthma without complication (HRC); Elevated serum creatinine; Hyponatremia 05/31/2024 2:45 PM CDT E-Visit [address] [place] [address] Maricarmen Simms DO Chief Comp: QUESTIONS, GENERAL 05/26/2024 9:00 AM CDT E-Visit [address] [place] [address] Maricarmen Simms DO Dx: Mixed hyperlipidemia (HRC) (Primary Dx) 05/26/2024 8:00 AM CDT Telemedicine [address] [place] [address] Maricarmen Simms DO Encounters for administrative purposes (Primary Dx) 05/05/2024 2:50 PM CDT Lab Visit [address] [place] [address] Health examination in population survey (Primary Dx); Pre-diabetes; Encounter for long-term (current) use of medications; Essential hypertension (HRC); Screening cholesterol level; Abnormal uterine bleeding (AUB) 05/05/2024 1:30 PM CDT Office Visit [address] [place] [address] Maricarmen Simms DO Essential hypertension (HRC) (Primary Dx); Screening for colon cancer; Encounter for screening mammogram for malignant neoplasm of breast; Pre-diabetes; Encounter for long-term (current) use of medications; Morbid obesity with BMI of 40.0-44.9, adult (HRC); Anxiety (HRC); Seasonal allergies; Screening cholesterol level; Mild persistent asthma without complication (HRC); Abnormal uterine bleeding (AUB); Bee sting allergy 05/05/2024 10:00 AM CDT E-Visit [facility] [address] [place] [address] Maricarmen Simms DO Chief Comp: Medication Questions 05/01/2024 Refill [facility] [address] [place] [address] Maricarmen Simms DO Refill (chlorthalidone (HYGROTON) 25 MG tablet [Pharmacy Med Name: CHLORTHALIDONE 25 MG TABLET]) 04/22/2024 1:45 PM CDT E-Visit [facility] [address] [place] [address] Sheela Vazquez PA-C Chief Comp: Medication Questions 04/22/2024 Refill [facility] [address] [place] [address] [address] [place] [address] Sheela Vazquez PA-C Refill (bupropion) 04/18/2024 Refill [facility] [address] [place] [address] Sheela Vazquez PA-C Refill (Wellbutrin ) 03/20/[address] [place] [address] Maricarmen Simms DO Refill (fexofenadine (JAYME) 180 MG tablet [Pharmacy Med Name: FEXOFENADINE HCL 180 MG TABLET]) from Last 3 Months Immunizations Name Administration Dates Next Due Flu Vac (3+ yrs) 09/24/2010 HepA Adult (19+ yrs) 06/05/2020 HepA-HepB ([place], 18+ yrs) 04/01/2016,01/12/20 13 Influenza IIV4 (Quadrivalent) 0.5mL (23542) 05/17,05/21/2021,06/05/2020 Moderna Monovalent 12+ 06/14/2021,10/12/2020, Pfizer Bivalent 12+ 06/03/2022 Tdap 05/21/2021,09/24/2010 Family History Medical History Relation Name Comments Hyperlipidemia Father Hypertension Father Tachycardia Father Cancer Mother Sherron Cancer, Melanoma Mother Sherron High Cholesterol Mother Sherron Hyperlipidemia Mother Sherron Hypertension Mother Sherron High Cholesterol Brother Edward Hyperlipidemia Brother Edward Hypertension Brother Edward Myocardial Infarction Maternal Aunt Coronary Artery Disease Maternal Grandfather Depression Maternal Grandmother Fern Hypertension Maternal Grandmother Fern Asthma Paternal Grandfather Vicente Myocardial Infarction Paternal Grandfather Vicente Cancer, Lung Paternal Grandmother ADHD Negative Family [...] Relation Name Status Comments Father Alive Mother Sherron Alive Brother Edward Alive Maternal Aunt Maternal Grandfather Maternal Grandmother Fern Paternal Grandfather Vicente Paternal Grandmother Sister 1 Alive Sister 2 [...] Pulse 115 06/03/2024 1:24 PM CDT Temperature 36.3 ??C (97.3 ??F) 10/09/2023 1 2:35 PM PILLOWCASE TURNER Respiratory Rate 28 10/09/2023 12:3 5 PM PILLOWCASE TURNER Oxygen Saturation 97% 10/09/2023 12: 35 PM PILLOWCASE TURNER Inhaled Oxygen Concentration - - Weight 104.3 kg (230 lb) 06/03/2024 1:2 4 PM CDT PT REPORTED. Pt is in wheelchair today. Height 160 cm (5' 2.99) 06/03/2024 1:2 4 PM CDT Body Mass Index 40.75 06/03/2024 1:24 PM CDT Plan of Treatment Upcoming Encounters Date Type Department Care Team (Late st Contact Info) Description 06/09/2024 9:00 AM CDT Telemedicine [facility] [address] [place], [place] [address] Maricarmen Simms DO [address] [place] [address] 09/26/2024 3:00 PM PILLOWCASE TURNER Telemedicine [facility] [address] [facility] [address] [place], [place] [address] Sheela Vazquez PA-C [address] [place], [place] [address] Health Maintenance Due Date Last Done Comments MTM Targeted 1976 Pneumococcal (1 - PCV) 1982 HepB (3) 09/01/2016 04/01/2016, 01/11/2013 FIT Colon Cancer Screening 2020 Mammogram 04/16/2022 04/16/2021 Adult Preventive Visit 06/03/2023 06/03/2022, 2012 COVID-19 Vaccine ( season) 2024 06/03/2022, 06/14/2021, 10/12/2020, Additional history exists Influenza (#1) 2024 06/03/2022, 12/2020, 06/05/2020, Additional history exists Prediabetes: HGBA1C 05/05/2025 05/05/2024, 06/03/2022, 04/16/2021, Additional history exists Asthma ACT 06/03/2025 06/03/2024, 05/18, 05/05/2018, Additional history exists Cervical Cancer Screening 03/28/20262020, [...] Procedure Name Priority Date/Time Associated Diagnosis Comments SODIUM Routine 06/03/2024 2:24 PM CDT Preop examination CREATININE / GFR Routine 06/03/2024 2:24 PM CDT Preop examination HEMOGLOBIN, BLOOD Routine 06/03/2024 2:2 4 PM CDT Preop examination ECG 12 LEAD OUTPATIENT Routine 06/03/2024 2:16 PM CDT Preop examination FIT COLLECTION KIT PREP Routine 05/05/2024 2:04 [...] Recently Relevant to Health Maintenance Results * (ABNORMAL) Creatinine / GFR (06/03/2024 2:24 PM CDT) Only the most recent of2 resultswithin the time period is included. Creatinine 1.05(H) 0.55 - 1.02 mg/dL 06/03/2024 5:54 PM CDT [facility] GFR, Estimated >60 >60 mL/min/1.7 3m2 06/03/2024 5:54 PM CDT [facility] Blood Venipuncture / Unknown 06/03/2024 2:24 PM CDT 06/03/2024 2:24 PM CDT Beth Butler MD LAB_1 Performing Organization Address City/[facility]/ZIP Co de Phone Number [facility] [address] [place], [place] [address] * Hemoglobin, Blood (06/03/2024 2:24 PM CDT) Hemoglobin 15.2 12.0 - 15.5 g/dL 06/03/2024 2:27 PM CDT [facility] Blood Venipuncture / Unknown 06/03/2024 2:24 PM CDT 06/03/2024 2:24 PM CDT Beth Butler MD LAB_1 Performing Organization Address City/[facility]/ZIP Co de Phone Number [facility] [address] [place] [address], [facility] * (ABNORMAL) Sodium (06/03/2024 2:24 PM CDT) Sodium 135(L) 136 - 145 mmol/L 06/03/2024 5:54 PM CDT [facility] Blood Venipuncture / Unknown 06/03/2024 2:24 PM CDT 06/03/2024 2:24 PM CDT Beth Butler MD LAB_1 [facility] [address] [id number], [facility] * ECG 12 Lead (Clinical Radiological Defense Officer to perform) (06/03/2024 2:16 PM CDT) Ventricular Rate 105 BPM MUSE GHP Atrial Rate 105 BPM MUSE GHP P-R Interval 148 ms MUSE GHP QRS Duration 66 ms MUSE GHP QT 370 ms MUSE GHP QTc 489 ms MUSE GHP P [place] 31 degrees MUSE GHP R [place] 24 degrees MUSE GHP T [place] 32 degrees MUSE GHP 06/03/2024 2:16 PM [...] PM Beth Butler MD PN ECG ORDERABLES [facility] [address] [place] [address] * FIT Collection Kit Prep (05/05/2024 2:04 PM CDT) Pathologist [facility] FIT Kit Prep Fit Kit Given 05/05/2024 4:00 PM CDT [facility] Stool Non-blood Collection / Unknown 05/05/2024 2:04 PM CDT 05/05/2024 2:04 PM CDT Maricarmen Simms DO LAB_1 Performing Organization Address [facility]/ZIP Co de Phone Number [facility] [address] [place] [address], [place] * (ABNORMAL) LDL Cholesterol, Direct Measured (05/05/2024 2:04 PM CDT) LDL, Direct 237(H) <=130 mg/dL 05/05/2024 6:52 PM CDT [facility] Blood Venipuncture / Unknown 05/05/2024 2:04 PM CDT 05/05/2024 2:04 PM CDT Maricarmen Simms DO LAB_1 Performing Organization Address [facility] Co de Phone Number [facility] [address] * TSH (05/05/2024 2:04 PM CDT) TSH, Sensitive 2.26 0.30 - 4.50 uIU/mL 05/05/2024 6:53 PM CDT [facility] Blood Venipuncture / Unknown 05/05/2024 2:04 PM CDT 05/05/2024 2:04 PM CDT Maricarmen Simms DO LAB_1 Performing Organization Address [facility] Co de Phone Number [facility] [address] * (ABNORMAL) Electrolyte Panel (05/05/2024 2:04 PM CDT) Sodium 133(L) 136 - 145 mmol/L 05/05/2024 6:37 PM CDT [facility] Potassium 3.7 3.5 - 5.1 mmol/L 05/05/2024 6:37 PM CDT [facility] Chloride 99 98 - 109 mmol/L 05/05/2024 6:37 PM CDT [facility] CO2 20 20 - 29 mmol/L 05/05/2024 6:37 PM CDT [facility] Anion Gap 14 6 - 16 mmol/L 05/05/2024 6:37 PM CDT [facility] Blood Venipuncture / Unknown 05/05/2024 2:04 PM CDT 05/05/2024 2:04 PM CDT Maricarmen Simms DO LAB_1 Performing Organization Address [facility] de Phone Number [facility] [address] * (ABNORMAL) Cholesterol, Total and HDL (05/05/2024 2:04 PM CDT) Cholesterol 299(H) 0 - 199 mg/dL 05/05/2024 6:37 PM CDT [facility] HDL Cholesterol 58 >=40 mg/dL 6:37 PM CDT [facility] Non HDL Chol, Calculated 241(H) <=159 mg/dL 05/05/2024 6:37 PM CDT [facility] Blood Venipuncture / Unknown 05/05/2024 2:04 PM CDT 05/05/2024 2:04 PM CDT Maricarmen Simms DO LAB_1 Performing Organization Address [facility] Phone Number [facility] [address] [place] [address] * (ABNORMAL) Hgb A1C (05/05/2024 2:04 PM CDT) Hemoglobin A1C 5.8(H) <=5.6 % 05/06/2024 9:56 AM CDT [facility] Estimated Average Glucose (Calc) 120 < 117 mg/dL 05/06/2024 9:56 AM CDT [facility] Comment:Estimated average gl ucose (eAG) converts A1c into glucose units (mg/dL) and estimates average glucose over the past approximately 3 months. The eAG reference interval (<117 mg/dL) corresponds to an A1c of <5.7%. Blood Venipuncture / Unknown 05/05/2024 2:04 PM CDT 05/05/2024 2:04 PM CDT Narrative [facility] - 05/06/2024 9:56 AM CDT For patients not previously diagnosed with diabetes: 5.7-6.4%: Increased risk for diabetes 6.5% and greater: Diagnostic for diabetes For patients diagnosed with diabetes: <8.0%: Goal of therapy for ages 18-75 Clinicians may recommend a higher or lower goal for specific individuals. Maricarmen Simms DO LAB_1 Performing Organization Address [facility] Co de Phone Number [facility] [address] * Hepatitis C Antibody, with Reflex (06/03/2022 1:24 PM CDT) Hepatitis C Antibody Negative (Non Reactive) Negative (Non Reactive) 06/03/2022 6:38 PM CDT [facility] Comment:Antibodies to HCV no t detected. Does not exclude the possiblity of exposure to HCV. Blood Venipuncture / Unknown 06/03/2022 1:24 PM CDT 06/03/2022 1:24 PM CDT Lacey Payne MD LAB_1 Performing Organization Address [facility] Co de Phone Number [facility] [address] [place] [address] * (ABNORMAL) MM Mammogram Screening Bilat W [...] medical imaging exams are released immediately to [facility]. ??You may be viewing this report [...] PM CDT) Case Report Pap ? Case: [id number] ? Authorizing Provider: ??Leticia Nelson, SECOND CHEF, CNM ??Collected: ? 03/28/2021 1535 ? Ordering Location: ? [facility] ?Received: ?03/28/2021 1633 ? Gynecology ? First Screen: ?Benji, Tanisha R, CT ? (ASCP) ? Rescreen: ?Grace Carr CT (ASCP) ? Specimen: ?Pap Test, Routine, Cervix/Endocervix ? 04/10/2021 1:55 PM [facility] Pap Specimen Adequacy Satisfactory for evaluation, endocervical/newman sformation zone component present. 04/10/2021 1:55 PM [facility] Pap Interpretation Negative for intraepithelial lesion or malignancy (NILM). 04/10/2021 1:55 PM [facility] Pap Disclaimer The Pap test is a screening test designed to aid in the detection of cervical cancer and its precursor lesions. It is not a diagnostic procedure and should not be used as the sole means of detecting cervical cancer. Both false-positive and false-negative results may occur. 04/10/2021 1:55 PM [facility] Gross Description The specimen is received in SurePath fixative and properly labeled. 1 Pap-stained SurePath slide is prepared. 04/10/2021 1:55 PM [facility] Embedded Images 1:55 PM [facility] Other Specimen Type ENTIRE ENDOCERVIX / Unknown 03/28/2021 3:35 PM CDT 03/28/2021 4:33 PM CDT Comment:LMP: Patient's last menstrual period was 03/03/2021. Leticia Nelson APRN, CNM LAB PATHOLOGY [address] [phone] * HIV 1/2 Ag/Ab 4th Generation (06/05/2020 2:03 PM CDT) HIV 1/2 Antigen/Anti body (4th generation) Negative (Non Reactive) Negative (Non Reactive) 06/06/2020 12:09 PM CDT [facility] Comment:HIV-1 p24 Antigen an d HIV-1/HIV-2 Antibody not detected Blood Venipuncture / Unknown 06/05/2020 2:03 PM CDT 06/05/2020 2:03 PM CDT Lacey Payne MD LAB_1 [facility] [address] [phone] from Last 3 Months or Most Recently Relevant to Health Maintenance Care Teams Net Lead Developer Relationship Specialty Start Date End Date Maricarmen Simms DO [address] [facility] [place] [address] PCP - General Family Practice 06/04/23
--- OUTSIDE RECORDS SUMMARY | 2024-06-06 11:05 | XMS_ITS | Encounter Summary ---
Author Organization Counts include 234 beds at the [facility] Address [address] [place] [address] Care Team Providers Care Salvage Mend Worker Name Role Phone Maricarmen Simms DO Primary Care Provider [phone] Reason for Visit * Reason Comments QUESTIONS, GENERAL Entered automaticall y based on patient selection in [employer]. Encounter Details Date Type Department Care Team ([facility] Contact Info) Description 05/31/2024 2:45 PM CDT E-Visit [address] [address] Maricarmen Simms DO [address] [place] [id number] Chief Comp: QUESTIONS, GENERAL Social History Tobacco Use Types Packs/Day Years [...] Upcoming Encounters Date Type Department Care Team ([facility] Contact Info) Description 06/09/2024 9:00 AM CDT Telemedicine [address] [address] Maricarmen Simms DO [address] [place] [address] 09/26/2024 3:00 PM SEWING MACHINE OPERATOR SEMIAUTOMATIC Telemedicine [facility] [address] [facility] [address] [place], [place] [address] Sheela Vazquez PA-C [address] [place], [place] [phone] documented as of this encounter Visit Diagnoses Not on filedocumented in this encounter Care Teams Salvage Mend Worker Relationship Specialty Start Date End Date Maricarmen Simms DO [address] [place] [address] PCP - General Family Practice 06/04/23 documented as of this encounter
--- OUTSIDE RECORDS SUMMARY | 2024-06-06 11:05 | XMS_ITS | Encounter Summary ---
Author Organization [facility] Address [address] [place] [address] Care Team Providers Care Car Construction Superintendent Name Role Phone Maricarmen Simms DO Primary Care Provider [phone] Reason for Visit * Reason Comments Follow-up, NOS Entered automaticall y based on patient selection in [employer]. Encounter Details Date Type Department Care Team ([facility] Contact Info) Description 05/26/2024 9:00 AM CDT E-Visit [address] [address] Maricarmen Simms DO [address] [place] [id number] Dx: Mixed hyperlipidemia (HRC) (Primary Dx) Social History Tobacco Use Types [...] Upcoming Encounters Date Type Department Care Team ([facility] Contact Info) Description 06/09/2024 9:00 AM CDT Telemedicine [address] [address] Maricarmen Simms DO [address] [place] [address] 09/26/2024 3:00 PM GRADING CLERK Telemedicine [facility] [address] [facility] [address] [place], [place] [address] Sheela Vazquez PA-C [address] [place], [place] [phone] Scheduled Orders Name Type Priority Associated Diagnoses Orde r Schedule Lipid Panel & Direct LDL (if Needed) Lab Routine Mixed hyperlipidemia (HRC) Expected: 08/26/2024, Expires: 11/24/2024 AST Lab Routine Mixed hyperlipidemia (HRC) Expected: 08/26/2024, Expires: 11/24/2024 ALT (SGPT) Lab Routine Mixed hyperlipidemia (HRC) Expected: 08/26/2024, Expires: 11/22/2024 documented as of this encounter Visit Diagnoses Diagnosis Mixed hyperlipidemia (HRC)- Primary Mixed hyperlipidemia documented in this encounter Care Teams Car Construction Superintendent Relationship Specialty Start Date End Date Maricarmen Simms DO [address] [place] [address] PCP - General Family Practice 06/04/23 documented as of this encounter
--- OUTSIDE RECORDS SUMMARY | 2024-06-06 11:06 | XMS_ITS | Encounter Summary ---
Author Organization [facility] Address [address] [place] [address] Care Team Providers Care Heavy Cleaner Name Role Phone Yvonne Harris DO Primary Care Provider Reason for Visit * Reason Comments Refill fexofenadine (ALLEGR A) 180 MG tablet [Pharmacy Med Name: FEXOFENADINE HCL 180 MG TABLET] Encounter Details Date Type Department Care Team ([facility] st Contact Info) Description 03/20/[address] [address] Yvonne Harris DO [address] [place], [place] [phone] Refill (fexofenadine (AJYME) 180 MG tablet [Pharmacy Med Name: FEXOFENADINE [...] CDT Further Assistance Needed on Refill from Freight Sorter Patient is due for Qualifying Visit Medication [...] YVONNE HARRIS) Next scheduled visit: [facility] Embedded Refills, Reference: [id number], 03/20/2024 1:11:40 AM DELMIT, Sam: MAT Refill Centralized Services - Primary Care [[id number]] ([id number]) documented in this encounter Plan of Treatment Upcoming Encounters Date Type Department Care Team (Late st Contact Info) Description 06/09/2024 9:00 AM CDT Telemedicine [facility] [address] [place] [address] Yvonne Harris DO [address] [facility], [place] [address] 09/26/2024 3:00 PM PROCESS IMPROVEMENT CONSULTANT Telemedicine [facility] [address] [facility] [address] [place], [place] [address] Sheela Vazquez PA-C [address] [place] [address] documented as of this encounter Visit Diagnoses Diagnosis Seasonal allergies Allergic rhinitis, cause unspecified documented in this encounter Care Teams Heavy Cleaner Relationship Specialty Start Date End Date Yvonne Harris DO [address] [facility], [place] [address] PCP - General Family Practice 06/04/23 documented as of this encounter
--- OUTSIDE RECORDS SUMMARY | 2024-06-06 11:06 | XMS_ITS | Encounter Summary ---
Author Organization [facility] Address [address] [place] [address] Care Team Providers Care Ppa Teacher Name Role Phone Maricarmen Simms DO Primary Care Provider [phone] Encounter Details Date Type Department Care Team (Late Contact Info) Description 05/05/2024 2:50 PM CDT Lab Visit [facility] 6[address] [place] [address] Health examination in population survey (Primary Dx); [...] Info) Description 06/09/2024 9:00 AM CDT Telemedicine [facility] 6[address] [place] [address] Maricarmen Simms DO 6000 [place] [address] 09/26/2024 3:00 PM SILVER MINER Telemedicine [facility] [address] [facility] [address] [place], [place] [address] Sheela Vazquez PA-C 3931 [place] [address] documented as of this encounter Procedures Procedure [...] Collection Kit Prep (05/05/2024 2:04 PM CDT) [facility] FIT Kit Prep Fit Kit Given 05/05/2024 4:00 PM CDT [facility] Stool Non-blood Collection / Unknown 05/05/2024 2:04 PM CDT 05/05/2024 2:04 PM CDT Maricarmen Simms DO LAB_1 Performing Organization Address City/[facility]/ZIP Co de Phone Number [facility] [address] [place] [address], [place] * TSH (05/05/2024 2:04 PM CDT) TSH, Sensitive 2.26 0.30 - 4.50 uIU/mL 05/05/2024 6:53 PM CDT [facility] Blood Venipuncture / Unknown 05/05/2024 2:04 PM CDT 05/05/2024 2:04 PM CDT Maricarmen Simms DO LAB_1 Performing Organization Address [facility] Co de Phone Number [facility] [address] * (ABNORMAL) Cholesterol, Total and HDL (05/05/2024 2:04 PM CDT) Cholesterol 299(H) 0 - 199 mg/dL 05/05/2024 6:37 PM CDT [facility] HDL Cholesterol 58 >=40 mg/dL 6:37 PM CDT [facility] Non HDL Chol, Calculated 241(H) <=159 mg/dL 05/05/2024 6:37 PM CDT [facility] Blood Venipuncture / Unknown 05/05/2024 2:04 PM CDT 05/05/2024 2:04 PM CDT Maricarmen Simms DO LAB_1 Performing Organization Address [facility] Co de Phone Number [facility] [address] * (ABNORMAL) LDL Cholesterol, Direct Measured (05/05/2024 2:04 PM CDT) LDL, Direct 237(H) <=130 mg/dL 05/05/2024 6:52 PM CDT [facility] Blood Venipuncture / Unknown 05/05/2024 2:04 PM CDT 05/05/2024 2:04 PM CDT Maricarmen Simms DO LAB_1 Performing Organization Address [facility] de Phone Number [facility] [address] [place] [address] * (ABNORMAL) Electrolyte Panel (05/05/2024 2:04 PM CDT) Sodium 133(L) 136 - 145 mmol/L 05/05/2024 6:37 PM CDT [facility] Potassium 3.7 3.5 - 5.1 mmol/L 05/05/2024 6:37 PM CDT [facility] Chloride 99 98 - 109 mmol/L 05/05/2024 6:37 PM CDT [facility] CO2 20 20 - 29 mmol/L 05/05/2024 6:37 PM CDT [facility] Anion Gap 14 6 - 16 mmol/L 05/05/2024 6:37 PM CDT [facility] Blood Venipuncture / Unknown 05/05/2024 2:04 PM CDT 05/05/2024 2:04 PM CDT Maricarmen Simms DO LAB_1 Performing Organization Address [facility] Phone Number [facility] [address] [place] [address] * (ABNORMAL) Creatinine / GFR (05/05/2024 2:04 PM CDT) Creatinine 1.03(H) 0.55 - 1.02 mg/dL 05/05/2024 6:37 PM CDT [facility] GFR, Estimated >60 >60 mL/min/1.7 3m2 05/05/2024 6:37 PM CDT [facility] Blood Venipuncture / Unknown 05/05/2024 2:04 PM CDT 05/05/2024 2:04 PM CDT Maricarmencarol ann Simms DO LAB_1 Performing Organization Address City/[facility] Co de Phone Number [facility] [address] [place] [address], [facility] * (ABNORMAL) Hgb A1C (05/05/2024 2:04 PM CDT) Hemoglobin A1C 5.8(H) <=5.6 % 05/06/2024 9:56 AM CDT [facility] Estimated Average Glucose (Calc) 120 < 117 mg/dL 05/06/2024 9:56 AM T [facility] Comment:Estimated average gl ucose (eAG) converts A1c into glucose units (mg/dL) and estimates average glucose over the past approximately 3 months. The eAG reference interval (<117 mg/dL) corresponds to an A1c of <5.7%. Blood Venipuncture / Unknown 05/05/2024 2:04 PM CDT 05/05/2024 2:04 PM CDT Narrative [facility] - 05/06/2024 9:56 AM CDT For patients not previously diagnosed with diabetes: 5.7-6.4%: Increased risk for diabetes 6.5% and greater: Diagnostic for diabetes For patients diagnosed with diabetes: <8.0%: Goal of therapy for ages 18-75 Clinicians may recommend a higher or lower goal for specific individuals. Maricarmen Simms DO LAB_1 Performing Organization Address City/State/[facility] Co de Phone Number [facility] [address] [place] [address], [facility] documented in this encounter Visit Diagnoses Diagnosis Health examination in population survey- Primary Pre-diabetes Other abnormal glucose Encounter for long-term (current) use of medications Encounter for long-term (current) use of other medications Essential hypertension (HRC) Unspecified essential hypertension Screening cholesterol level Screening for lipoid disorders Abnormal uterine bleeding (AUB) documented in this encounter Care Teams Ppa Teacher Relationship Specialty Start Date End Date Maricarmen [place] [address] [place] [address] PCP - General Family Practice 06/04/23 documented as of this encounter
--- OUTSIDE RECORDS SUMMARY | 2024-06-06 11:06 | XMS_ITS | Encounter Summary ---
Author Organization [facility] Address [address] [place] [address] Care Team Providers Care Copyman Name Role Phone Maricarmen Reyes DO Primary Care Provider [phone] Reason for Referral * Procedure/Equipment (Routine) - Incomplete Specialty Diagnoses / Procedures Referred By Contac t Referred To Contact Diagnoses Encounter for screening mammogram for malignant neoplasm of breast Procedures MM Mammogram Screening Bilat W CAD Maricarmen Reyes DO [address] [place] [address] Referral ID Status Reason Start Date Expiration Date V isits Requested Visits Authorized [id number] Incomplete 05/05/2024 08/04/2025 1 1 Reason for Visit * Reason Comments ASTHMA Encounter Details Date Type Department Care Team (Late st Contact Info) Description 05/05/2024 1:30 PM CDT Office Visit [address] [address] Maricarmen Reyes DO [address] [place] [address] Essential hypertension (HRC) (Primary Dx); [...] find a BMI calculator on the National [place] [employer] Health website at www.nhlbi.nih.gov/health/educational/lose_wt/BMI/bmicalc.htm. BMI ranges [...] for dessert. Limit deep-fried vegetables, such as cameroonian fries. + Choose lean protein, such as [...] that works best for you. + For [facility], call [phone]. + For [facility] locations, call [phone]. + For [facility] and [facility], call [phone]. + For [facility], call [phone]. + For [facility], call [phone]. (12/2018) ??[facility] documented in this encounter Progress Notes [...] Info) Description 06/09/2024 9:00 AM CDT Telemedicine [address] [address] Maricarmen Reyes DO [address] [facility], [place] [address] 09/26/2024 3:00 PM RAILROAD MAINTENANCE CLERK Telemedicine [facility] [address] [facility] [address] [place], [place] [address] Sheela Vazquez PA-C [address] [place], [place] [phone] Scheduled Orders Name Type Priority Associated Diagnoses [...] - 4.50 uIU/mL 05/05/2024 6:53 PM CDT [facility] Blood Venipuncture / Unknown 05/05/2024 2:04 PM CDT 05/05/2024 2:04 PM CDT Maricarmen Reyes DO LAB_1 [facility] [address] [place], [place] [phone] [place] [address] * (ABNORMAL) Cholesterol, Total and HDL (05/05/2024 2:04 PM CDT) Cholesterol 299(H) 0 - 199 mg/dL 05/05/2024 6:37 PM CDT [facility] HDL Cholesterol 58 >=40 mg/dL 6:37 PM CDT [facility] Non HDL Chol, Calculated 241(H) <=159 mg/dL 05/05/2024 6:37 PM CDT [facility] Blood Venipuncture / Unknown 05/05/2024 2:04 PM CDT 05/05/2024 2:04 PM CDT Maricarmen Reyes DO LAB_1 Performing Organization Address [facility] Co de Phone Number [facility] [address] * (ABNORMAL) LDL Cholesterol, Direct Measured (05/05/2024 2:04 PM CDT) LDL, Direct 237(H) <=130 mg/dL 05/05/2024 6:52 PM CDT [facility] Blood Venipuncture / Unknown 05/05/2024 2:04 PM CDT 05/05/2024 2:04 PM CDT Maricarmen Reyes DO LAB_1 Performing Organization Address [facility] Phone Number [facility] [address] * (ABNORMAL) Electrolyte Panel (05/05/2024 2:04 PM CDT) Sodium 133(L) 136 - 145 mmol/L 05/05/2024 6:37 PM CDT [facility] Potassium 3.7 3.5 - 5.1 mmol/L 05/05/2024 6:37 PM CDT [facility] Chloride 99 98 - 109 mmol/L 05/05/2024 6:37 PM CDT [facility] CO2 20 20 - 29 mmol/L 05/05/2024 6:37 PM CDT [facility] Anion Gap 14 6 - 16 mmol/L 05/05/2024 6:37 PM CDT [facility] Blood Venipuncture / Unknown 05/05/2024 2:04 PM CDT 05/05/2024 2:04 PM CDT Maricarmen Reyes DO LAB_1 Performing Organization Address [facility] Co de Phone Number [facility] * (ABNORMAL) Creatinine / GFR (05/05/2024 2:04 PM CDT) Creatinine 1.03(H) 0.55 - 1.02 mg/dL 05/05/2024 6:37 PM CDT [facility] GFR, Estimated >60 >60 mL/min/1.7 3m2 05/05/2024 6:37 PM CDT [facility] Blood Venipuncture / Unknown 05/05/2024 2:04 PM CDT 05/05/2024 2:04 PM CDT Maricarmen Reyes DO LAB_1 Performing Organization Address City/[facility]/ZIP Co de Phone Number [facility] [address] * (ABNORMAL) Hgb A1C (05/05/2024 2:04 PM CDT) Hemoglobin A1C 5.8(H) <=5.6 % 05/06/2024 9:56 AM CDT [facility] Estimated Average Glucose (Calc) 120 < 117 mg/dL 05/06/2024 9:56 AM CDT [facility] Comment:Estimated average gl ucose (eAG) converts A1c into glucose units (mg/dL) and estimates average glucose over the past approximately 3 months. The eAG reference interval (<117 mg/dL) corresponds to an A1c of <5.7%. Blood Venipuncture / Unknown 05/05/2024 2:04 PM CDT 05/05/2024 2:04 PM CDT Narrative [facility] - 05/06/2024 9:56 AM CDT For patients not previously diagnosed with diabetes: 5.7-6.4%: Increased risk for diabetes 6.5% and greater: Diagnostic for diabetes For patients diagnosed with diabetes: <8.0%: Goal of therapy for ages 18-75 Clinicians may recommend a higher or lower goal for specific individuals. Maricarmen Reyes DO LAB_1 [facility] [address] [place] [id number] documented in this encounter Visit [...] venom documented in this encounter Care Teams Copyman Relationship Specialty Start Date End Date Maricarmen Reyes DO [address] [place] [address] PCP - General Family Practice 06/04/23 documented as of this encounter
--- OUTSIDE RECORDS SUMMARY | 2024-06-06 11:06 | XMS_ITS | Encounter Summary ---
Author Organization [facility] Address [address] [place] [address] Care Team Providers Care Metal Hanging Helper Name Role Phone Yvonne Harris DO Primary Care Provider Reason for Visit * Reason Comments Refill chlorthalidone (HYGR OTON) 25 MG tablet [Pharmacy Med Name: CHLORTHALIDONE 25 MG TABLET] Encounter Details Date Type Department Care Team ([facility] st Contact Info) Description 05/01/[address] [id number] Yvonne Harris DO [address] [place], [place] [address] Refill (chlorthalidone (HYGROTON) 25 MG tablet [Pharmacy [...] every day * Marvin Maradiaga [facility] - 05/01/2024 1:09 AM CDT chlorthalidone (HYGROTON) 25 MG tablet [Pharmacy Med Name: CHLORTHALIDONE 25 MG TABLET] Medication started: 09/04/2022 Last ordered by YVONNE HARRIS A: 02/02/2024 (89 days ago) QTY: 90, Refills: 0, Sig: take 1 tabletby mouth every day (unchanged) -> Cr, K, and Na are overdue (performed over 15 months ago, required every 12 months) -> Cr is abnormal (1.1 mg/dL lies outside 0.55 mg/dL - 1.02 mg/dL) -> Na is abnormal (134 mEq/L lies outside 135.0 mEq/L - 145.0 mEq/L) Last qualifying visit: 06/04/2023 (with YVONNE HARRIS) Next scheduled visit: 05/05/2024 (with YVONNE HARRIS) Cr: 1.1 mg/dL on 02/04/2023 Na: 134 mEq/L on 02/04/2023 K: 3.6 mEq/L on 02/04/2023 [facility] Embedded Refills, Reference: [id number], 05/01/2024 1:09:12 AM CDT, Pool: MAT Refill Centralized Services - Primary Care [[id number]] ([id number]) documented in this encounter Plan of Treatment Upcoming Encounters Date Type Department Care Team (Late st Contact Info) Description 06/09/2024 9:00 AM CDT Telemedicine [facility] 6[address] [facility], [place] [phone] Yvonne Harris, [address] [facility], [place] [address] 09/26/2024 3:00 PM FURNITURE DECALS INSPECTOR Telemedicine [facility] [address] [facility] [address] [place], [place] [phone] Sheela Vazquez PA-C [address] [place] [address] documented as of this encounter Visit Diagnoses Diagnosis Essential hypertension (HRC) Unspecified essential hypertension documented in this encounter Care Teams Metal Hanging Helper Relationship Specialty Start Date End Date Yvonne Harris DO [address] [place] [address] PCP - General Family Practice 06/04/23 documented as of this encounter
--- OUTSIDE RECORDS SUMMARY | 2024-06-06 11:06 | XMS_ITS | Encounter Summary ---
Author Organization [facility] Address [address] [place] [address] Care Team Providers Care Correctional Substance Abuse Counselor Name Role Phone Maricarmen Simms DO Primary Care Provider Reason for Visit * Reason Onset Date Comments Refill 04/22/2024 bupropion Encounter Details Date Type Department Care Team (Late st Contact Info) Description 04/22/2024 Refill [facility] [address] [facility] [address] [place], [place] [phone] Sheela Vazquez PA-C [address] [place] [address] Refill (bupropion) Social History Tobacco [...] AM CDT Telemedicine [facility] [address] [facility] [place] [address] Maricarmen Simms DO [address] [place] [address] 09/26/2024 3:00 PM CUTTING AND SPLICING SUPERVISOR Telemedicine [facility] [address] [facility] [address] [place], [place] [address] Sheela Vazquez PA-C [address] [place], [place] [address] documented as of this encounter Visit Diagnoses Diagnosis Morbid obesity with BMI of 40.0-44.9, adult (HRC) documented in this encounter Care Teams Correctional Substance Abuse Counselor Relationship Specialty Start Date End Date Maricarmen Simms DO [address] [facility], [place] [address] PCP - General Family Practice 06/04/23 documented as of this encounter
--- OUTSIDE RECORDS SUMMARY | 2024-06-06 11:06 | XMS_ITS | Encounter Summary ---
Author Organization [facility] Address [address] [place] [address] Care Team Providers Care Sausage Canner Name Role Phone Maricarmen Simms DO Primary Care Provider [phone] Reason for Visit * Reason Comments Medication Questions Entered automatical ly based on patient selection in Applifier. Encounter Details Date Type Department Care Team ([facility] Contact Info) Description 04/22/2024 1:45 PM CDT E-Visit [facility] [address] [facility] [address] [place], [place] [phone] Sheela Vazquez PA-C [address] [place], [place] [phone] Chief Comp: Medication Questions Social History Tobacco [...] Upcoming Encounters Date Type Department Care Team ([facility] Contact Info) Description 06/09/2024 9:00 AM CDT Telemedicine [facility] [address] [place], [place] [address] Maricarmen Simms DO [address] [place] [address] 09/26/2024 3:00 PM DROP PIT WORKER Telemedicine [facility] [address] [facility] [address] [place], [place] [address] Sheela Vazquez PA-C [address] [place], [place] [address] documented as of this encounter Visit Diagnoses Not on filedocumented in this encounter Care Teams Sausage Canner Relationship Specialty Start Date End Date Maricarmen Simms DO [address] [place] [address] PCP - General Family Practice 06/04/23 documented as of this encounter
--- OUTSIDE RECORDS SUMMARY | 2024-06-06 11:06 | XMS_ITS | Encounter Summary ---
Author Organization [facility] Address [address] [place] [address] Care Team Providers Care Agent Name Role Phone Yvonne Harris DO Primary Care Provider [phone] Reason for Visit * Reason Comments QUESTIONS, GENERAL Entered automaticall y based on patient selection in PEAK-IT. Encounter Details Date Type Department Care Team ([facility] st Contact Info) Description 03/01/2024 12:40 PM CDT E-Visit [address] [address] Yvonne Harris DO [address] [place] [address] Dx: SOB (shortness of breath) Social History [...] [facility] Embedded Refills, Reference: [id number], 03/01/2024 12:41:55 PM CDT, Pool: MAT Refill Centralized Services - Primary Care [[id number]] ([id number]) documented in this encounter Plan of Treatment Upcoming Encounters Date Type Department Care Team (Late st Contact Info) Description 06/09/2024 9:00 AM CDT Telemedicine [facility] 6[address] [facility], [place] [address] Yvonne Harris DO [address] [place], [place] [address] 09/26/2024 3:00 PM HEEL CEMENTER MACHINE Telemedicine [facility] [address] [facility] [address] [place], [place] [address] Sheela Vazquez PA-C 39[address] [place] [address] documented as of this encounter Visit Diagnoses Diagnosis SOB (shortness of breath) Shortness of breath documented in this encounter Care Teams Agent Relationship Specialty Start Date End Date Yvonne Harris DO [address] [place] [address] PCP - General Family Practice 06/04/23 documented as of this encounter
--- OUTSIDE RECORDS SUMMARY | 2024-06-06 11:06 | XMS_ITS | Encounter Summary ---
Author Organization [facility] Address [address] [place] [address] Care Team Providers Care Ocean Export Account Manager Name Role Phone Maricarmen Simms DO Primary Care Provider Reason for Visit * Reason Comments Refill Wellbutrin Encounter Details Date Type Department Care Team (Late st Contact Info) Description 04/18/2024 Refill [facility] [address] [facility] [address] [place], [place] [address] Sheela Vazquez PA-C [address] [place], [place] [phone] Refill (Wellbutrin ) Social History Tobacco Use [...] Info) Description 06/09/2024 9:00 AM CDT Telemedicine [facility] 6000 [place] [address] Maricarmen Simms DO 6[address] [place] [address] 09/26/2024 3:00 PM EDGING MACHINE SETTER Telemedicine [facility] [address] [facility] [address] [place] [address] Sheela Vazquez PA-C [address] [place], [place] [address] documented as of this encounter Visit Diagnoses Diagnosis Morbid obesity with BMI of 40.0-44.9, adult (HRC) documented in this encounter Care Teams Ocean Export Account Manager Relationship Specialty Start Date End Date Maricarmen Simms DO [address] [place] [address] PCP - General Family Practice 06/04/23 documented as of this encounter
--- OUTSIDE RECORDS SUMMARY | 2024-06-06 11:06 | XMS_ITS | Encounter Summary ---
Author Organization [facility] Address [address] [place] [address] Care Team Providers Care Change Management Director Name Role Phone Maricarmen Simms DO Primary Care Provider [phone] Reason for Visit * Reason Comments Medication Questions Entered automatical ly based on patient selection in SpiceCSM. Encounter Details Date Type Department Care Team ([facility] Contact Info) Description 05/05/2024 10:00 AM CDT E-Visit [address] [address] Maricarmen Simms DO [address] [place] [id number] Chief Comp: Medication Questions Social History Tobacco [...] Upcoming Encounters Date Type Department Care Team ([facility] Contact Info) Description 06/09/2024 9:00 AM CDT Telemedicine [address] [address] Maricarmen Simms DO [address] [facility] [place] [address] 09/26/2024 3:00 PM TONGUE CARRIER Telemedicine [facility] 39[address] [facility] [address] [place], [place] [address] Sheela Vazquez PA-C [address] [place], [place] [address] documented as of this encounter Visit Diagnoses Not on filedocumented in this encounter Care Teams Change Management Director Relationship Specialty Start Date End Date Maricarmen Simms DO [address] [facility] [place] [address] PCP - General Family Practice 06/04/23 documented as of this encounter
--- NOTE | 2024-06-06 12:30 | CRLHL7_ITS ---
For Patients: As a result of the Cures Act, medical imaging exams and procedure reports are released immediately into your electronic medical record. You may view this report before your referring provider. If you have questions, please contact your health care provider. Indication: ORIF Technique: Six fluoroscopic images of the right ankle. Fluoroscopic time 117.16 seconds. IMPRESSION: Fluoroscopic guidance for open reduction internal fixation of the distal fibular fracture with improved alignment at the tibiotalar joint. Dictated by Osito Brown MD @ 06/07/2024 1:17:35 PM (Electronically Signed)
--- NOTE | 2024-06-06 12:30 | W.PM.H&PU ---
History & Physical Update History & Physical Update H&P Reviewed and patient assessed: No changes noted
[2024-06-06] MEDS: LACTATED RINGERS 500 ML 500 ML 125 ML IV (13:30)
--- NOTE | 2024-06-06 13:34 | W.ANESCHARGE ---
Anesthesia Charges Start Date/Time Anesthesia Start Date: 06/06/24 Anesthesia Start Time: 13:33 Stop Date/Time Anesthesia Stop Date: 06/06/24 Anesthesia Stop Time: 16:25
[2024-06-06] MEDS: CEFAZOLIN 2 GM in 0.9 % SODIUM CHLORIDE Mini-bag 100 ML IVPB (13:40)
--- NOTE | 2024-06-06 15:36 | PM.ORPRC ---
Procedure Note Date of procedure: 06/06/24 Procedure: PREOPERATIVE DIAGNOSES: 1. Right ankle lateral malleolus fracture with bimalleolar equivalent and unstable tibiotalar joint, closed, acute POSTOPERATIVE DIAGNOSES: 1. Right ankle lateral malleolus fracture with bimalleolar equivalent and unstable tibiotalar joint, closed, acute 2. Right ankle extra-articular ligament disruption (medial deltoid ligament) with interposition within the medial gutter of the ankle joint NAME OF OPERATION: 1. Right ankle lateral malleolus open reduction with internal fixation 2. Right ankle extra-articular ligament open repair (deltoid ligament that was trapped within the medial gutter) 2. 89557 - intraoperative fluoroscopy up to 1 hour. SURGEON: Tony Dallas MD BAG MACHINE OPERATOR HELPER: Darrel Drummond PA-C; Of note, an library clerical assistant was critical for this case to aide in patient positioning, leg manipulation, tissue retraction, closure, & splinting. ANESTHESIA: Spinal anesthesia EBL: 10 mL IMPLANTS: Arthrex fibulock 3.0 mm distal fibular intramedullary nail with 3.0 mm cortical nonlocking screws distally (total of 3 screws) and an end cap. TOURNIQUET: 80 minutes at 300 torr INDICATIONS: The patient is a pleasant 48-year-old female who sustained a right ankle injury in the recent past with difficulty bearing weight. Workup included xrays which revealed an unstable ankle fracture as noted above. Given these findings, surgery was recommended to stablize the ankle. FINDINGS: Closed, displaced lateral malleolus fractures with inability to reduce the talus properly in the mortise as the medial deltoid ligament had flipped into the medial gutter. This was learned after we made a medial incision and identified this tissue interposition. A small fracture blister was seen along the medial malleolus measuring approximately 2 cm in diameter but was away from our incision medially. PROCEDURE: Following a thorough discussion of risks, benefits, and alternatives, consent was obtained and the right ankle was marked. The patient was brought to the operating room and placed supine on the operating table. Induction of anesthesia was undertaken. Appropriate time out was performed identifying proper patient, site and procedure. 2 g IV Ancef was administered within 1 hour of incision preoperatively. The right lower extremity was prepped and draped in the appropriate sterile fashion using ChloraPrep. The limb was exsanguinated and the tourniquet inflated. As a closed reduction attempt was performed but found to have insufficient talus reduction, a longitudinal incision was made overlying the medial malleolar. Sharp incision through skin and blunt dissection to the subcutaneous tissue allowed us to protect the crossing neurovascular structures. The medial malleolar tip was identified and tracked to the medial gutter. Indeed, the deltoid ligament was found to be interposed within this tissue. At the end the procedure, deltoid extra-articular ankle ligament repair was performed with # 0 Vicryl in interrupted [id number] fashion. Once this tissue was removed, the fracture was much more amenable to reduction maneuvers. However, the reduction was incomplete laterally as well. Therefore, longitudinal incision was made overlying the lateral malleolar fracture once an open reduction was performed with a reduction clamp, 3B lock implant was selected. The guide pin was placed, confirmed with fluoroscopy, and a subsequent reamers utilized. The nail was passed with excellent security to the fracture. 3 distal screws were utilized after the talons had been opened proximally. An end cap was also applied. The ankle was placed through range of motion and the syndesmosis tested and found to be stable. At this stage, the wound was thoroughly irrigated with normal saline. Closure was performed with 3-0 / 4-0 Vicryl and monocryl, respectively for subcutaneous and subcuticular closure. Dressings were applied and a sugar-tong splint was applied. The patient was awoken from anesthesia and transferred to the PACU in stable condition. PLAN: 1. Elevate operative extremity. 2. Encouraged ice. 3. Oxycodone for pain as needed. 4. Follow up with PA visit in 1-2 weeks for wound check and splint removal. Transition to CAM boot. Initiate partial weight-bearing at approximately 3-4 weeks postop based on pain. 5. For now, Toe-touch weight-bearing operative lower extremity
--- NOTE | 2024-06-06 16:26 | W.ANESCHARGE ---
Anesthesia Charges Start Date/Time Anesthesia Start Date: 06/06/24 Anesthesia Start Time: 13:33 Stop Date/Time Anesthesia Stop Date: 06/06/24 Anesthesia Stop Time: 16:25
[2024-06-06] MEDS: hydrOXYzine pamoate 25 MG CAPSULE PO (16:58)
[2024-06-06] MEDS: OXYCODONE 5 MG TABLET PO (16:59)
== END 2024-06-06 17:35 | disposition home or self-care (01) ==
PROVIDERS: Visit Provider Orthopaedic Surgery Sports Medicine
PROC: (CPT 27792; principal; 2024-06-06 12:30)
DX: S82.61XA Displaced fracture of lateral malleolus of right fibula, initial encounter for closed fracture (principal); S93.421A Sprain of deltoid ligament of right ankle, initial encounter; M25.371 Other instability, right ankle
CPT/HCPCS: 27792; 27695; 01480; 73600; 73610; 81025; A4580; A9270; C1713; J0690; J1100; J1171; J2250; J2405; J2704; J3010; J3490; J7120